=== PATIENT | male | born 1945 | race Caucasian/White ===

== ENCOUNTER 2016-05-24 07:00 | Day surgery (SDC) | payer OTHER, MEDICARE ==
[2016-05-24] MEDS ORDERED: D5 LR 1000 ML 1,000 ML IV ONE (07:21)
[2016-05-24] MEDS ORDERED: DIPRIVAN VIAL 20 ML ONE (08:32)
[2016-05-24] MEDS ORDERED: XYLOCAINE 2 % (PLAIN) ONE (08:32)
[2016-05-24 09:28] VITALS: BP 122/70
== END 2016-05-24 09:15 | disposition home or self-care (01) ==
LOC: SURG1 07:00
PROVIDERS: ATTEND Internal Medicine Gastroenterology
PROC: 0DBL8ZX Excision of Transverse Colon, Via Natural or Artificial Opening Endoscopic, Diagnostic (ICD-10-PCS; principal; 2016-05-24 08:15)
PROC: 0DJD8ZZ Inspection of Lower Intestinal Tract, Via Natural or Artificial Opening Endoscopic (ICD-10-PCS; principal; 2016-05-24 08:15)
DX: K63.5 Polyp of colon (principal); K57.30 Diverticulosis of large intestine without perforation or abscess without bleeding; K64.8 Other hemorrhoids; Z86.010 Personal history of colon polyps
CPT/HCPCS: 99100; A4217; J2001; J3490; J7120

== ENCOUNTER 2016-07-01 08:12 | Inpatient (IN) | payer OTHER, MEDICARE ==
[2016-07-01 08:17] VITALS: BMI 35.6
[2016-07-01 08:54] LABS: EOSINOPHILS # (AUTO) 0.1 x10^3/uL (0.0-0.2); EOSINOPHILS % (AUTO) 2.3 % (0.9-2.9); HEMATOCRIT 34.1 % (42.0-54.0); HEMOGLOBIN 11.3 g/dL (13.5-18.0); LYMPHOCYTES # (AUTO) 0.5 X10^3/uL (1.3-2.9); MEAN CORPUSCULAR HEMOGLOBIN 29.5 pg (27.0-34.0); MEAN CORPUSCULAR HGB CONC 33.1 g/dL (33.0-35.0); MEAN PLATELET VOLUME 8.9 fL (7.4-11.0); MONOCYTES # (AUTO) 0.3 x10^3/uL (0.3-0.8); MONOCYTES % (AUTO) 11.6 % (0.0-13.0); NEUTROPHILS % (AUTO) 67.1 % (42.0-75.0); PLATELET COUNT 132 X10^3/uL (150.0-450.0); RED BLOOD COUNT 3.83 X10^6/uL (4.7-6.0)
[2016-07-01 09:04] LABS: ALANINE AMINOTRANSFERASE 36 Units/L (12-78); ALBUMIN 3.3 g/dL (3.4-5.0); ALKALINE PHOSPHATASE 33 Units/L (46-116); ASPARTATE AMINO TRANSFERASE 36 Units/L (15-37); BLOOD UREA NITROGEN 13 mg/dL (7-18); CALCIUM 8.1 mg/dL (8.5-10.1); CARBON DIOXIDE 27.4 mmol/L (21-32); CHLORIDE 103 mmol/L (98-107); COR CA(FOR HYPOALB) 8.7 mg/dL (8.5-10.1); COR NA(FOR HYPERGLY) 141 mmol/L (136-145); CREATININE 1.13 mg/dL (0.70-1.30); GLUCOSE 133 mg/dL (65-99); SODIUM 140 mmol/L (136-145); TOTAL PROTEIN 6.4 g/dL (6.4-8.2); eGFR BLACK RACES > 60 (>60); eGFR NON BLACK RACES > 60 (>60)
--- NOTE | 2016-07-01 09:06 | RAD ---
HISTORY: 70-year-old male with cough, fever, runny nose, body aches and wheezing. Study: Single frontal view of the chest. Comparison: Chest radiograph May 06, 2015. Findings: Stable postsurgical changes status post CABG. The trachea is midline. The cardiac silhouette is stably enlarged. Prominent perihilar lung markin gs with peribronchial cuffing. There is hazy airspace opacity at the left lung base and to a lesser degree at the right lung base without focal consolidation, effusion or pneumothorax. Significant deg enerative changes of the shoulders is unchanged. Soft tissues unremarkable. The bony thorax is unre markable. IMPRESSION: 1. Findings concerning for multilobar pneumonia, correlate clinically. 2. Stable cardiomegaly. Reported By:
--- NOTE | 2016-07-01 09:11 | DR.URIAD ---
HPI - Time Seen Time seen: 08:27 - PCP Primary Care Physician: NANCY - HPI Comment HPI Comment: PATIENT PRESENTS TO ED WITH FEVER, COUGH,CONGESTION BODYACHES AND CHEST SORENESS. WORSE TODAY. HE WAS WHEEZING AT HOME. CHEST WAS TIGHT ALSO. HE TOOK MORNING MEDICATIONS TODAY. HE IS WEAK AND DRAIN OF ENERGY. COUGH PRODUCTIVE. - Complaint Chief Complaint Doctors Comments: FEVER, COUGH, CONGESTION AND BODYACHES TIMES ONE DAYS. Chief Complaint:: FEVER, BODY ACHES, WHEEZING, COUGHING, RUNNY NOSE - Reviewed Nurses Notes Reviewed: Yes - Source History Provided: Patient - Mode of Arrival Mode of Arrival: Ambulatory - Timing Onset of Chief Complaint: 06/30/16 - Context Recent Treated Infections: None History of Respiratory: None - Quality Quality of Cough: Productive, Yellow Rhinorrhea: Clear Shortness of Breath: Mild - Associated Signs and Symptoms Other Signs and Symptoms: Chills, Cough, Fever, Myalgias, Nasal Symptoms, Shortness of Breath, URI PMH - PMH Past Medical History: Yes Past Medical History: CHF, Diabetes, GERD, Hypertension, Hypothyroidism, [place] Past Surgical History: Yes Surgical History: Angioplasty/Stents, Cholecystectomy, Joint Replacement, Ortho Surgery - Family History History of Family Medical Conditions: Yes Family Medical History: Diabetes Mellitus, [place], Coronary Artery Disease, Hypertension - Social History Does patient currently use any type of tobacco product: No Have you used tobacco products in the last 12 months: No Type of Tobacco Use: None Does any household member use tobacco: No Alcohol Use: None Do you use any recreational Drugs:: No Lives With: Spouse Lives Where: Home - infectious screening In the last 2 months have you had wt loss of >10#?: NO Have you had fever, night sweats or hemotysis?: No Have you traveled outside the country in the last 6 months?: No Isolation: Standard ROS - Review of Systems Constitutional: Chills, Fever (AT HOME), Weakness, Fatigue, Loss of Appetite Eyes: No Symptoms Reported. negative: Eye Pain, Discharge ENTM: Nose Discharge, Nose Congestion. negative: Ear Pain, Throat Pain Respiratoy: Productive Cough, Short of Breath. negative: Wheezing, Hemoptysis Cardiovascular: No Symptoms Reported, Chest Pain, Edema (CHEST WALL SORENESS) Gastrointestinal/Abdominal: No Symptoms Reported. negative: Abdominal Pain, Diarrhea, Nausea, Vomiting Genitourinary: No Symptoms Reported. negative: Dysuria, Frequency, Hematuria Neurological: Headache, Weakness, Dizziness Musculoskeletal: Back Pain, Muscle Pain Integumentary: No Symptoms Reported Hematologic/Lymphatic: No Symptoms Reported Endocrine: No Symptoms Reported All Other Systems: Reviewed and Negative PE - Vital Signs Vitals: Temperature 98.2 F Pulse Rate 88 Respiratory Rate 18 Blood Pressure [Left Arm] 151/75 Blood Pressure [Right Arm] 142/88 Blood Pressure 133/69 O2 Sat by Pulse Oximetry 97 - General Limitations: No Limitations General Appearance: Alert - Head Head Exam: Atraumatic - Eyes Eye exam: Normal Appearance - ENT ENT Exam: Normal External Ear Exam External Ear Exam: Normal External Inspection TM/Canal Exam: Bilateral Normal Nose Exam: Normal Nose Exam Mouth Exam: Normal Inspection Throat Exam: Normal Inspection - Neck Neck Exam: Trachea Midline - Chest Chest Inspection: Symmetric Chest Wall Rise - Respiratory Respiratory Exam: Respiratory Distress. negative: Chest Wall Tenderness Respiratory Exam: Bilateral Rhonchi, Lower Rhonchi - Cardiovascular Cardiovascular Exam: Regular Rate, Normal Rhythm, Normal Heart Sounds - Abdominal Exam Abdominal Exam: Normal Bowel Sounds, Soft. negative: Tenderness - Extremeties Extremities Exam: Normal Inspection - Back Back Exam: Normal Inspection - Neurologic Neurological Exam: Alert, Oriented X3 - Psychiatric Psychiatric Exam: Anxious - Skin Skin Exam: Normal Color MDM - Additional Information Additional Information Obtained From: Family - Differential Diagnosis Differential Diagnosis: Influenza A, Pneumonia, URI ([place]) Course - Treatment Treatment: SEE ORDERS. - Consultation Consultation Comments: DISCUSS PATIENT WITH DR. SERRANO NURSE PRACTIONAL CARPENTER REFRIGERATOR WITH DR. HAMILTON. THEY WILL ADMIT PATIENT. - Education/Counseling Education/Counseling: Patient, Family, Education Educated On: Treatment, Diagnosis ROR - Labs Reviewed Laboratory Results Reviewed?: Yes Result Diagrams: 07/01/16 08:47 07/01/16 08:47 Laboratory: WBC 3.0 X10^3/uL (3.6-10.0) L 07/01/16 08:47 RBC 3.83 X10^6/uL (4.7-6.0) L 07/01/16 08:47 Hgb 11.3 g/dL (13.5-18.0) L 07/01/16 08:47 Hct 34.1 % (42.0-54.0) L 07/01/16 08:47 MCV 89.0 fL (80.0-100.0) 07/01/16 08:47 MCH 29.5 pg (27.0-34.0) 07/01/16 08:47 MCHC 33.1 g/dL (33.0-35.0) 07/01/16 08:47 RDW 15.0 % (11.6-16.5) 07/01/16 08:47 Plt Count 132 X10^3/uL (150.0-450.0) L 07/01/16 08:47 MPV 8.9 fL (7.4-11.0) 07/01/16 08:47 Neut % 67.1 % (42.0-75.0) 07/01/16 08:47 Lymph % 18.0 % (21.0-51.0) L 07/01/16 08:47 [place] % 11.6 % (0.0-13.0) 07/01/16 08:47 Eos % 2.3 % (0.9-2.9) 07/01/16 08:47 Baso % 1.0 % (0.2-1.0) 07/01/16 08:47 Neut # 2.0 x10^3/uL (2.2-4.8) L 07/01/16 08:47 Lymph # 0.5 X10^3/uL (1.3-2.9) L 07/01/16 08:47 [place] # 0.3 x10^3/uL (0.3-0.8) 07/01/16 08:47 Eos # 0.1 x10^3/uL (0.0-0.2) 07/01/16 08:47 Baso # 0.0 X10^3/uL (0.0-0.1) 07/01/16 08:47 Absolute Nucleated RBC 0.0 /100WBC 07/01/16 08:47 Sodium 140 mmol/L (136-145) 07/01/16 08:47 Corrected Sodium 141 mmol/L (136-145) 07/01/16 08:47 Potassium 3.4 mmol/L (3.5-5.1) L 07/01/16 08:47 Chloride 103 mmol/L (98-107) 07/01/16 08:47 Carbon Dioxide 27.4 mmol/L (21-32) 07/01/16 08:47 BUN 13 mg/dL (7-18) 07/01/16 08:47 Creatinine 1.13 mg/dL (0.70-1.30) 07/01/16 08:47 Est GFR (MDRD) Af Amer > 60 (>60) 07/01/16 08:47 Est GFR (MDRD) Non-Af > 60 (>60) 07/01/16 08:47 Glucose 133 mg/dL (65-99) H 07/01/16 08:47 Calcium 8.1 mg/dL (8.5-10.1) L 07/01/16 08:47 Corrected Calcium 8.7 mg/dL (8.5-10.1) 07/01/16 08:47 Total Bilirubin 0.70 mg/dL (0.2-1.0) 07/01/16 08:47 AST 36 Units/L (15-37) 07/01/16 08:47 ALT 36 Units/L (12-78) 07/01/16 08:47 Alkaline Phosphatase 33 Units/L (46-116) L 07/01/16 08:47 Total Protein 6.4 g/dL (6.4-8.2) 07/01/16 08:47 Albumin 3.3 g/dL (3.4-5.0) L 07/01/16 08:47 Globulin 3.1 g/dL (2.5-4.5) 07/01/16 08:47 Albumin/Globulin Ratio 1.1 Ratio (1.1-2.1) 07/01/16 08:47 Specimen Type Clean catch urine 07/01/16 11:05 Urine Color Yellow (YELLOW) 07/01/16 11:05 Urine Appearance Hazy (CLEAR) 07/01/16 11:05 Urine pH 6.0 (5.0 - 8.0) 07/01/16 11:05 Ur Specific [place] 1.010 (1.000-1.030) 07/01/16 11:05 Urine Protein Negative (NEGATIVE) 07/01/16 11:05 Urine Glucose (UA) Negative (NEGATIVE) 07/01/16 11:05 Urine Ketones Negative (NEGATIVE) 07/01/16 11:05 Urine Occult Blood Negative (NEGATIVE) 07/01/16 11:05 Urine Nitrite Negative (NEGATIVE) 07/01/16 11:05 Urine Bilirubin Negative (NEGATIVE) 07/01/16 11:05 Urine Urobilinogen Normal (NORMAL) 07/01/16 11:05 Ur Leukocyte Esterase 1+ (NEGATIVE) 07/01/16 11:05 Urine RBC 0-2 /HPF (NEGATIVE) 07/01/16 11:05 Urine WBC 0-2 /HPF (NEGATIVE) 07/01/16 11:05 Ur Squamous Epith Cells Negative /HPF (NEGATIVE) 07/01/16 11:05 Urine Bacteria Trace /HPF (NEGATIVE) 07/01/16 11:05 Ur Culture Indicated? No/not indicated 07/01/16 11:05 Influenza A (H1N1) PCR Not detected (NOT DETECT) 07/01/16 08:35 Influenza Type A (PCR) Positive (NEGATIVE) A 07/01/16 08:35 Influenza Type B (PCR) Negative (NEGATIVE) 07/01/16 08:35 - XRAY XRAY Interpreted by: Radiologist XRAY Findings: REPORT DISCUSS WITH PATIENT. - Diagnosis Discharge Problem: Influenza A Pneumonia Qualifiers: Pneumonia type: due to unspecified organism Laterality: bilateral Lung location : lower lobe of lung Qualified Code(s): J18.9 - Pneumonia, unspecified organism - Discharge Plan Disposition: ADMITTED INPATIENT Condition: Stable - Follow ups/Referrals - Instructions
[2016-07-01] MEDS ORDERED: LEVAQUIN PREMIX IV 750 MG 750 MG/150 ML BAG IV ONE ×2 (09:18→09:37)
[2016-07-01] MEDS ORDERED: SALINE 3% 15 ML NEB TX ONE (09:27)
[2016-07-01] MEDS ORDERED: SALINE 3% 15 ML NEB TX NEB ONE (09:33)
[2016-07-01] MEDS ORDERED: POTASSIUM CHLORIDE LIQ 20 MEQ UDC PO ONE (09:35)
[2016-07-01] MEDS ORDERED: POTASSIUM CHLORIDE LIQ 20 MEQ UDC ONE (09:43)
[2016-07-01] MEDS ORDERED: TUSSIONEX PENNKINETIC SUSP PO PRN (09:56)
[2016-07-01] MEDS ORDERED: NS 1000 ML 1,000 ML IV SCH (10:00)
[2016-07-01] MEDS ORDERED: NITROSTAT SL PRN (10:29)
[2016-07-01] MEDS ORDERED: TYLENOL #3 TAB (W/CODEINE) PO PRN (10:29)
[2016-07-01] MEDS ORDERED: COUMADIN TAB 7.5 MG PO SCH (11:00)
[2016-07-01 11:10] LABS: BILIRUBIN,URINE NEGATIVE (NEGATIVE); BLOOD/HEMOGLOBIN,URINE NEGATIVE (NEGATIVE); GLUCOSE, URINE NEGATIVE (NEGATIVE); KETONES,URINE NEGATIVE (NEGATIVE); LEUKOCYTE ESTERASE ,URINE 1+ (NEGATIVE); NITRITES,URINE NEGATIVE (NEGATIVE); PROTEIN,URINE NEGATIVE (NEGATIVE); UROBILINOGEN,URINE NORMAL (NORMAL)
[2016-07-01 11:17] LABS: APPEARANCE,URINE HAZY (CLEAR); COLOR,URINE YELLOW (YELLOW)
[2016-07-01 11:18] LABS: BACTERIA,URINE TRACE /HPF (NEGATIVE); RBC,URINE 0-2 /HPF (NEGATIVE); SQUAMOUS EPITHELIAL CELL,UR NEGATIVE /HPF (NEGATIVE)
[2016-07-01] MEDS: TAMIFLU PO SCH ×2 (11:50→22:18)
[2016-07-01] MEDS: DUONEB 0.5 MG/3 MG NEB SCH ×3 (12:52→20:37)
[2016-07-01] MEDS: VIBRAMYCIN 100 MG in D5W 250 ML IV 250 ML IV SCH ×2 (12:56→22:23)
[2016-07-01] MEDS: SYNTHROID 175 mcg TAB PO SCH (16:33)
[2016-07-01] MEDS ORDERED: HumuLIN R SUBCUT PRN (17:52)
[2016-07-01] MEDS: ROBITUSSIN DM PO SCH ×2 (19:00→22:22)
[2016-07-01] MEDS ORDERED: FOLIC ACID PO SCH (21:00)
[2016-07-01] MEDS ORDERED: [UNRECOGNIZED DRUG - OTHER] PO SCH (21:00)
[2016-07-01] MEDS ORDERED: [UNRECOGNIZED DRUG - OTHER] PO SCH (21:00)
[2016-07-01] MEDS ORDERED: [UNRECOGNIZED DRUG - OTHER] PO SCH (21:00)
[2016-07-01] MEDS ORDERED: [UNRECOGNIZED DRUG - OTHER] PO SCH (21:00)
[2016-07-01] MEDS ORDERED: [UNRECOGNIZED DRUG - OTHER] PO SCH (21:00)
[2016-07-01] MEDS: TRICOR TAB 160 MG PO SCH (22:17)
[2016-07-01] MEDS: PROCARDIA XL PO SCH (22:18)
[2016-07-01] MEDS: NORMODYNE TAB 200 MG PO SCH (22:19)
[2016-07-01] MEDS: NEURONTIN CAP 100 MG PO SCH (22:19)
[2016-07-01] MEDS: VITAMIN C PO SCH (22:19)
[2016-07-01] MEDS: PLAVIX PO SCH (22:20)
[2016-07-01] MEDS: OSCAL+D or CALTRATE+D PO SCH (22:20)
[2016-07-01] MEDS: PEPCID TAB 20 MG PO SCH (22:21)
[2016-07-01] MEDS: LIPITOR TAB 40 MG PO SCH (22:21)
[2016-07-01] MEDS: CARDURA PO SCH (22:21)
[2016-07-01] MEDS: SNACK - Diabetic Appropriate PO SCH (22:22)
[2016-07-01] MEDS: RANEXA PO SCH (22:22)
[2016-07-01] MEDS: [UNRECOGNIZED DRUG - OTHER] PO SCH (22:26)
[2016-07-02] MEDS ORDERED: NS 1/2 1000 ML IV 1,000 ML IV ONE ×2 (03:26→19:41)
[2016-07-02] MEDS: NS 1/2 1000 ML IV 1,000 ML IV SCH ×3 (03:27→19:45)
[2016-07-02 05:20] LABS: BASOPHILS % (AUTO) 1.1 % (0.2-1.0); EOSINOPHILS # (AUTO) 0.1 x10^3/uL (0.0-0.2); EOSINOPHILS % (AUTO) 2.7 % (0.9-2.9); HEMOGLOBIN 11.6 g/dL (13.5-18.0); LYMPHOCYTES # (AUTO) 1.1 X10^3/uL (1.3-2.9); LYMPHOCYTES % (AUTO) 39.6 % (21.0-51.0); MEAN CORPUSCULAR HEMOGLOBIN 29.9 pg (27.0-34.0); MEAN CORPUSCULAR HGB CONC 33.1 g/dL (33.0-35.0); MEAN CORPUSCULAR VOLUME 90.5 fL (80.0-100.0); MEAN PLATELET VOLUME 9.7 fL (7.4-11.0); MONOCYTES # (AUTO) 0.4 x10^3/uL (0.3-0.8); MONOCYTES % (AUTO) 16.7 % (0.0-13.0); NEUTROPHILS # (AUTO) 1.1 x10^3/uL (2.2-4.8); NEUTROPHILS % (AUTO) 39.9 % (42.0-75.0); PLATELET COUNT 133 X10^3/uL (150.0-450.0); RED BLOOD COUNT 3.87 X10^6/uL (4.7-6.0); RED CELL DISTRIBUTION WIDTH 15.4 % (11.6-16.5)
[2016-07-02 05:22] LABS: ALANINE AMINOTRANSFERASE 36 Units/L (12-78); ALBUMIN 3.1 g/dL (3.4-5.0); ALKALINE PHOSPHATASE 36 Units/L (46-116); ASPARTATE AMINO TRANSFERASE 37 Units/L (15-37); BLOOD UREA NITROGEN 15 mg/dL (7-18); CALCIUM 8.5 mg/dL (8.5-10.1); CARBON DIOXIDE 25.3 mmol/L (21-32); CHLORIDE 106 mmol/L (98-107); COR CA(FOR HYPOALB) 9.2 mg/dL (8.5-10.1); GLUCOSE 96 mg/dL (65-99); SODIUM 141 mmol/L (136-145); TOTAL PROTEIN 6.2 g/dL (6.4-8.2); WHITE BLOOD COUNT 2.8 X10^3/uL (3.6-10.0); eGFR BLACK RACES > 60 (>60); eGFR NON BLACK RACES > 60 (>60)
[2016-07-02 05:56] LABS: BASOPHILS % (MANUAL) 2 % (0-1); PLATELET MORPHOLOGY COMMENT NORMAL (NORMAL)
--- NOTE | 2016-07-02 07:25 | RAD ---
HISTORY: Follow up pneumonia Study: Chest two-view Comparison: July 01, 2016 Findings: The patient is status post median sternotomy. The heart is upper limits normal in size. No congestiv e heart failure is noted. The lungs are well inflated. No definite acute alveolar infiltrates are id entified on today's examination. No pleural effusions are present. The bony thorax is unremarkable. IMPRESSION: No definite infiltrates identified on today's examination Reported By:
[2016-07-02] MEDS: DUONEB 0.5 MG/3 MG NEB SCH ×4 (08:10→20:01)
[2016-07-02] MEDS: VIBRAMYCIN 100 MG in D5W 250 ML IV 250 ML IV SCH ×2 (08:53→21:46)
[2016-07-02] MEDS: ROBITUSSIN DM PO SCH ×4 (08:54→21:32)
[2016-07-02] MEDS: ASPIRIN PO SCH (08:56)
[2016-07-02] MEDS: PEPCID TAB 20 MG PO SCH ×2 (08:56→21:35)
[2016-07-02] MEDS: K-DUR TAB 20 MEQ PO SCH (08:56)
[2016-07-02] MEDS: FOLIC ACID TAB 1 MG PO SCH (08:57)
[2016-07-02] MEDS: CORDARONE TAB 200 MG PO SCH (08:59)
[2016-07-02] MEDS ORDERED: CYANOCOBALAMIN PO SCH (09:00)
[2016-07-02] MEDS ORDERED: [UNRECOGNIZED DRUG - OTHER] PO SCH (09:00)
[2016-07-02] MEDS: HYDROCHLOROTHIAZIDE 12.5 MG CAP PO SCH (09:00)
[2016-07-02] MEDS: PROCARDIA XL PO SCH ×2 (09:01→21:34)
[2016-07-02] MEDS: ZESTRIL TAB 5 MG PO SCH (09:02)
[2016-07-02] MEDS: RANEXA PO SCH ×2 (09:02→21:35)
[2016-07-02] MEDS: TAB-A-VITE PO SCH (09:02)
[2016-07-02] MEDS: VITAMIN B-12 PO SCH (09:02)
[2016-07-02] MEDS: TAMIFLU PO SCH ×3 (09:04→21:34)
[2016-07-02] MEDS: MONOKET or IMDUR PO SCH (09:51)
[2016-07-02] MEDS: CLARITIN PO SCH (12:41)
[2016-07-02] MEDS: SYNTHROID 175 mcg TAB PO SCH (17:19)
[2016-07-02] MEDS: CARDURA PO SCH (21:32)
[2016-07-02] MEDS: FLOMAX PO SCH (21:33)
[2016-07-02] MEDS: PLAVIX PO SCH (21:33)
[2016-07-02] MEDS: OSCAL+D or CALTRATE+D PO SCH (21:33)
[2016-07-02] MEDS: LIPITOR TAB 40 MG PO SCH (21:34)
[2016-07-02] MEDS: NEURONTIN CAP 100 MG PO SCH (21:35)
[2016-07-02] MEDS: [UNRECOGNIZED DRUG - OTHER] PO SCH (21:36)
[2016-07-02] MEDS: VITAMIN C PO SCH (21:40)
[2016-07-02] MEDS: NORMODYNE TAB 200 MG PO SCH (21:43)
[2016-07-02] MEDS: TRICOR TAB 160 MG PO SCH (21:44)
[2016-07-02] MEDS: SNACK - Diabetic Appropriate PO SCH (21:49)
[2016-07-03 05:16] LABS: BASOPHILS % (AUTO) 0.5 % (0.2-1.0); EOSINOPHILS # (AUTO) 0.1 x10^3/uL (0.0-0.2); EOSINOPHILS % (AUTO) 3.4 % (0.9-2.9); HEMATOCRIT 35.5 % (42.0-54.0); HEMOGLOBIN 11.5 g/dL (13.5-18.0); LYMPHOCYTES # (AUTO) 1.1 X10^3/uL (1.3-2.9); LYMPHOCYTES % (AUTO) 44.1 % (21.0-51.0); MEAN CORPUSCULAR HEMOGLOBIN 29.3 pg (27.0-34.0); MEAN CORPUSCULAR HGB CONC 32.3 g/dL (33.0-35.0); MEAN CORPUSCULAR VOLUME 90.8 fL (80.0-100.0); MEAN PLATELET VOLUME 9.7 fL (7.4-11.0); MONOCYTES # (AUTO) 0.3 x10^3/uL (0.3-0.8); NEUTROPHILS # (AUTO) 0.9 x10^3/uL (2.2-4.8); PLATELET COUNT 119 X10^3/uL (150.0-450.0); RED BLOOD COUNT 3.91 X10^6/uL (4.7-6.0); RED CELL DISTRIBUTION WIDTH 15.2 % (11.6-16.5); WHITE BLOOD COUNT 2.4 X10^3/uL (3.6-10.0)
[2016-07-03 05:25] LABS: ALANINE AMINOTRANSFERASE 44 Units/L (12-78); ALBUMIN 3.2 g/dL (3.4-5.0); ALKALINE PHOSPHATASE 40 Units/L (46-116); ASPARTATE AMINO TRANSFERASE 46 Units/L (15-37); BLOOD UREA NITROGEN 12 mg/dL (7-18); CALCIUM 8.8 mg/dL (8.5-10.1); CARBON DIOXIDE 28.8 mmol/L (21-32); CHLORIDE 108 mmol/L (98-107); COR CA(FOR HYPOALB) 9.4 mg/dL (8.5-10.1); CREATININE 1.04 mg/dL (0.70-1.30); GLUCOSE 97 mg/dL (65-99); SODIUM 145 mmol/L (136-145); TOTAL PROTEIN 6.3 g/dL (6.4-8.2); eGFR BLACK RACES > 60 (>60); eGFR NON BLACK RACES > 60 (>60)
[2016-07-03 05:58] LABS: BAND NEUTROPHILS % 2 % (0-10)
[2016-07-03 05:59] LABS: PLATELET MORPHOLOGY COMMENT NORMAL (NORMAL)
--- NOTE | 2016-07-03 06:52 | RAD ---
HISTORY: Multi lobar pneumonia Study: Single-view chest, done portably Comparison: July 02, 2016 Findings: There are again changes of thoracotomy with median sternotomy sutures. Trachea is midline. Heart siz e is upper normal. Lungs and pleural spaces are clear. Osseous structures are intact. IMPRESSION: Status post thoracotomy. Hypertensive configuration. No acute cardiopulmonary disease. Reported By:
[2016-07-03] MEDS: DUONEB 0.5 MG/3 MG NEB SCH ×4 (08:43→21:02)
[2016-07-03] MEDS: VITAMIN B-12 PO SCH (09:40)
[2016-07-03] MEDS: ROBITUSSIN DM PO SCH ×4 (09:40→20:56)
[2016-07-03] MEDS: ZESTRIL TAB 5 MG PO SCH (09:41)
[2016-07-03] MEDS: TAB-A-VITE PO SCH (09:43)
[2016-07-03] MEDS: PEPCID TAB 20 MG PO SCH ×2 (09:43→20:55)
[2016-07-03] MEDS: HYDROCHLOROTHIAZIDE 12.5 MG CAP PO SCH (09:43)
[2016-07-03] MEDS: CORDARONE TAB 200 MG PO SCH (09:43)
[2016-07-03] MEDS: TAMIFLU PO SCH ×2 (09:43→20:55)
[2016-07-03] MEDS: K-DUR TAB 20 MEQ PO SCH (09:44)
[2016-07-03] MEDS: ASPIRIN PO SCH (09:44)
[2016-07-03] MEDS: PROCARDIA XL PO SCH ×2 (09:44→20:54)
[2016-07-03] MEDS: MONOKET or IMDUR PO SCH (09:44)
[2016-07-03] MEDS: FOLIC ACID TAB 1 MG PO SCH (09:44)
[2016-07-03] MEDS: RANEXA PO SCH ×2 (09:45→20:58)
[2016-07-03] MEDS: CLARITIN PO SCH (09:45)
[2016-07-03] MEDS: VIBRAMYCIN 100 MG in D5W 250 ML IV 250 ML IV SCH ×2 (09:47→20:56)
[2016-07-03] MEDS: SYNTHROID 175 mcg TAB PO SCH ×2 (09:48→17:19)
--- NOTE | 2016-07-03 12:54 | DR.H&P ---
H&P - History & Physical for Day of: H&P Date: 07/01/16 - Chief Complaint Chief Complaint: FEVER, COUGH, CONGESTION, BODY ACHES - Allergies Allergies/Adverse Reactions: Allergies Allergy/AdvReac Type Severity Reaction Status Date / Time Penicillins Allergy Intermediate Verified 07/01/16 08:17 - History of Present Illness History of Present Illness: THIS IS A 70 YEAR OLD MALE, WHO IS A PATIENT OF OURS. HE PRESENTS TO THE EMERGENCY ROOM WITH COMPLAINTS OF FEVER, COUGH, CONGESTION, AND BODY ACHES. PATIENT ALSO REPORTS CHEST SORENESS. PATIENT REPORTS THAT HE HAS BEEN WHEEZING AT HOME AND HIS CHEST HAS BEEN TIGHT. PATIENT IS REPORTING WEAKNESS AND IS DRAINED OF ENERGY. PATIENT REPORTS A PRODUCTIVE COUGH AT HOME. PATIENT REPORTS SPUTUM IS YELLOW IN COLOR. ASSOCIATED SYMPTOMS INCLUDE CHILLS, COUGH, FEVER, MYALGIAS, NASAL SYMPTOMS, SHORTNESS OF BREATH, AND UPPER RESPIRATORY INFECTION. UPON ARRIVAL TO EMERGENCY ROOM, PATIENT IS NOTED WITH RESPIRATORY DISTRESS. UPON AUSCULTATION, LUNGS ARE NOTED WITH BILATERAL RHONCHI THROUGHOUT. CHEST XRAY REPORTS CONCERN FOR MULTILOBAR PNEUMONIA. PATIENT WILL BE ADMITTED FOR FURTHER TREATMENT AND EVALUATION OF PNEUMONIA. PATIENT WILL BE ADMITTED ON PNEUMONIA PROTOCOL WITH IV ANTIBIOTICS AND AGGRESSIVE NEB TREATMENTS. - Past Medical History Past Medical History: Arthritis, CHF, Coronary Artery Disease, Diabetes, Dyslipidemia, GERD, Hypertension, Hypothyroidism, PR, Sleep Apnea Additional Medical History: Cataracts, Bacterial Meningitis 2010, Bronchitis, Pneumonia, Osteoporosis, Back Pain, Thromboembolism, Diverticulosis, Migraine - Past Surgical History Surgical History: Angioplasty/Stents, CABG/Valve Surgery, Cholecystectomy, Joint Replacement, Ortho Surgery, Other Additional Surgical History: Cardiac Cath 12/2015, Left TKA, Arthroscopic Left KNee, Right and Left Rotator Cuff Repair, Amputation Right Pointer Finger (Meat Saw), Inguinal Hernia Repair, Umbilical Hernia Repair, Breast Biopsy (Benign) - Family History Family Medical History: Diabetes Mellitus, PR, Coronary Artery Disease, Hypertension - Social History Does patient currently use any type of tobacco product: No Have you used tobacco products in the last 12 months: No Type of Tobacco Use: Cigarettes How many years tobacco product used: 20 Does any household member use tobacco: No Alcohol Use: None Drug Use: Prescription Drugs - Medications Home Medications: Acetaminophen W/ Codeine [Tylenol/Codeine #3 300-30 mg] 1 tab PO Q4-6H PRN 07/01 [History Confirmed 07/01/16] Amiodarone HCl [Cordarone Tab 200 mg] 200 mg PO DAILY 07/01/16 [History Confirmed 07/01/16] Aspirin [ASPIRIN 325 MG *] 325 mg PO DAILY 07/01/16 [History Confirmed 07/01/16] Atorvastatin Calcium [Lipitor Tab 40 mg] 40 mg PO HS 07/01/16 [History Confirmed 07/01/16] Clopidogrel Bisulfate [Plavix] 75 mg PO DAILY 07/01/16 [History Confirmed ] Doxazosin Mesylate [Doxazosin] 4 mg PO HS 07/01/16 [History Confirmed 07/01/16] Famotidine [Famotidine 20 mg] 20 mg PO BID 07/01/16 [History Confirmed 07/01/16] Fenofibrate [Fenofibrate 160 mg] 160 mg PO HS 07/01/16 [History Confirmed ] Gabapentin [Neurontin Cap 100 mg] 100 mg PO HS 07/01/16 [History Confirmed 07/01] Hydrochlorothiazide [Hydrochlorothiazide 12.5 mg Cap] 12.5 mg PO QAM 07/01/16 [ History Confirmed 07/01/16] Isosorbide Mononitrate 20 mg PO DAILY 07/01/16 [History Confirmed 07/01/16] Labetalol HCl [Normodyne Tab 200 mg] 200 mg PO DAILY 07/01/16 [History Confirmed 07/01/16] Levothyroxine Sodium 175 mcg PO DAILY 07/01/16 [History Confirmed 07/01/16] Lisinopril [ZESTRIL *] 5 mg PO DAILY 07/01/16 [History Confirmed 07/01/16] Loratadine [Allergy] 10 mg PO DAILY 07/01/16 [History Confirmed 07/01/16] Nifedipine [Nifedipine ER] 30 mg PO BID 07/01/16 [History Confirmed 07/01/16] Nitroglycerin Sublingual [NITROSTAT SUBLING TAB 0.4 MG *] 0.4 mg SL PRN PRN [History Confirmed 07/01/16] Potassium Chloride [Potassium Chloride ER] 20 meq PO DAILY 07/01/16 [History Confirmed 07/01/16] Ranolazine [Ranexa] 500 mg PO BID 07/01/16 [History Confirmed 07/01/16] Tamsulosin HCl [Flomax] 0.4 mg PO HS 07/01/16 [History Confirmed 07/01/16] Warfarin Sodium [Coumadin Tab 5 mg] 5 mg PO DAILY 07/01/16 [History Confirmed ] - Review of Systems Constitutional: Fever, Weakness, Malaise Eyes: No Symptoms Reported. denies: Pain, Vision Change, Conjunctivae Inflammation, Eyelid Inflammation, Redness ENT: Nose Discharge, Nose Congestion. denies: Ear Pain, Ear Discharge, Nose Pain, Mouth Pain, Mouth Swelling, Throat Pain, Throat Swelling Respiratory: Cough, Shortness of Breath, SOB with Excertion, Sputum, Wheezing. denies: Hemoptysis, Pleuritic Pain Cardiovascular: Chest Pain. denies: Palpitations, Orthopnea, Paroxysmal Noc. Dyspnea, Edema, Light Headedness Gastrointestinal: No Symptoms Reported. denies: Nausea, Vomiting, Abdominal Pain, Diarrhea, Constipation, Melena, Hematochezia Genitourinary: No Symptoms Reported. denies: Dysuria, Frequency, Incontinence, Hematuria, Retention Musculoskeletal: No Symptoms Reported. denies: Shoulder Pain, Arm Pain, Back Pain, Hand Pain, Leg Pain, Foot Pain, Neck Pain Skin: No Symptoms Reported. denies: Rash, Lesions, Jaundice, Bruising, Wound, Ecchymosis Neurological: No Symptoms Reported. denies: Weakness, Numbness, Incoordination , Change in Speech, Confusion, Seizures - Physical Exam Vital Signs: Temperature 97.9 F Pulse Rate [Left Brachial] 59 Pulse Rate 88 Respiratory Rate 20 Blood Pressure [Left Arm] 135/71 O2 Sat by Pulse Oximetry 98 Oriented: Normal, Time, Person, Place Eyes: Normal. negative: Blurred Vision, Diplopia, Discharge, Pain, Redness, Photophobia Ear: Normal. negative: Swelling, Ecchymosis, Hemotypanum, Abrasion, Laceration Nose: Normal. negative: Injected, Discharge, Blood Throat: Red, Dry. negative: Tonsillar Hypertrophy, Exudate Respiratory: Rhonchi Throughout Cardiovascular: Normal. negative: Murmur, Edema : Normal. negative: Dysuria, Hematuria, Frequency, Discharge, Testicular Pain Auscultation: Bowel Sounds: Decreased. negative: Bruit Palpation: Normal. negative: Spleen Enlarged, Liver Enlarged, Mass Pulsatile Tenderness: Normal. negative: Rebound, Guarding, Rigidity Skin: Normal. negative: Diaphoresis, Wound, Bruising, Ecchymosis Musculoskeletal: Instability Psychiatric: Normal Mood Description: Calm, Appropriate Affect: Normal Speech Pattern: Clear, Appropriate - Assessment/Plan (1) Pneumonia Qualifiers: Pneumonia type: due to unspecified organism Aspiration pneumonia type: A Laterality: bilateral Lung location: lower lobe of lung Qualified Code(s): J18.9 - Pneumonia, unspecified organism Status: Acute Plan: ADMIT PATIENT, START PNEUMONIA PROTOCOL WITH IV ANTIBIOTICS, DUONEBS, SUPPLEMENTAL OXYGEN, ROBITUSSION, MONITOR LABS AND CHEST XRAY. (2) Respiratory distress Status: Acute Plan: ABOVE. (3) Influenza A Status: Acute Plan: START TAMIFLU, MONITOR. (4) CAD (coronary artery disease) Qualifiers: Coronary Disease-Associated Artery/Lesion type: [place] artery [place] vs. transplanted heart: [place] heart Associated angina: without angina Qualified Code(s): I25.10 - Atherosclerotic heart disease of [place] coronary artery without angina pectoris Status: Chronic (5) Diabetes Qualifiers: Diabetes mellitus type: type 2 Diabetes mellitus complication status: without complication Diabetes mellitus complication detail: D Diabetic retinopathy severity: D Proliferative retinopathy type: P Diabetes mellitus macular edema: D Diabetes mellitus rat exterminator insulin use: without assisted use Laterality: L Chronic kidney disease stage: C Qualified Code(s): E11.9 - Type 2 diabetes mellitus without complications Status: Chronic (6) GERD (gastroesophageal reflux disease) Qualifiers: Esophagitis presence: esophagitis presence not specified Qualified Code(s) : K21.9 - Gastro-esophageal reflux disease without esophagitis Status: Chronic (7) History of CHF (congestive heart failure) Status: Chronic (8) Hypertension Qualifiers: Hypertension type: essential hypertension Qualified Code(s): I10 - Essential (primary) hypertension Status: Chronic (9) Hyperlipidemia Qualifiers: Hyperlipidemia type: mixed hyperlipidemia Qualified Code(s): E78.2 - Mixed hyperlipidemia Status: Chronic (10) History of PR (myocardial infarction) Status: Chronic (11) History of angioplasty Status: Chronic (12) History of diverticulosis Status: Chronic (13) History of meningitis Status: Chronic (14) History of migraine Status: Chronic (15) History of thromboembolism Status: Chronic (16) Hx of CABG Status: Chronic (17) Hypothyroidism Qualifiers: Hypothyroidism type: H Status: Chronic (18) S/P cholecystectomy Status: Chronic
--- NOTE | 2016-07-03 13:47 | PCM.PROG ---
Progress Note - Progress Note for Day of Date: 07/02/16 - Subjective Subjective: PATIENT CONTINUES WITH COUGH AND CHEST CONGESTION THIS MORNING. HE IS NOTED A COARSE, NON-PRODUCTIVE COUGH. PATIENT CONTINUES WITH SHORTNESS OF BREATH AT REST AND ON EXERTION. ON AUSCULTATION, LUNGS ARE NOTED WITH COARSE RH[place]I AND WHEEZING THROUGHOUT. VITAL SIGNS STABLE, AFEBRILE. CBC WNL EXCEPT : WBC 2.8, H/H 11.6/35.0, PLT COUNT 133. CMP WNL EXCEPT: TOT PROTEIN 6.2, ALBUMIN 3.1. INR 2.03. BLOOD AND SPUTUM CULTURES PENDING. CHEST XRAY REPORTS NO DEFINITE INFILTRATES. WE WILL CONTINUE WITH CURRENT TREATMENT AND FOLLOW UP IN AM WITH LABS. - Past Medical Family Social History Past Med/Fam/Surg Hx: No changes since H&P Allergies: Allergies Penicillins Allergy (Intermediate, Verified 07/01/16 08:17) - Review of Systems ROS: No change since H&P - Vital Signs and I&O's Vital Signs: Temperature 97.9 F Pulse Rate [Left Brachial] 59 Pulse Rate 88 Respiratory Rate 20 Blood Pressure [Left Arm] 135/71 O2 Sat by Pulse Oximetry 98 Intake and Output: Intake & Output 07/01/16 07/02/16 07/03/16 07/04/16 11:59 11:59 11:59 11:59 Intake Total 2300 2019 Balance 2300 2019 - Physical Exam Oriented: Normal, Time, Person, Place Eyes: Normal. negative: Blurred Vision, Diplopia, Discharge, Pain, Redness, Photophobia Ear: Normal. negative: Swelling, Ecchymosis, Hemotypanum, Abrasion, Laceration Nose: Normal. negative: Injected, Discharge, Blood Throat: Red, Dry. negative: Tonsillar Hypertrophy, Exudate Respiratory: Generalized, Wheezes, Rhonchi Cardiovascular: Normal. negative: Murmur, Edema : Normal. negative: Dysuria, Hematuria, Frequency, Discharge, Testicular Pain Auscultation: Bowel Sounds: Decreased. negative: Bruit Palpation: Normal. negative: Spleen Enlarged, Liver Enlarged, Mass Pulsatile Tenderness: Normal. negative: Rebound, Guarding, Rigidity Skin: Normal. negative: Diaphoresis, Wound, Bruising, Ecchymosis Musculoskeletal: Instability Psychiatric: Normal Mood Description: Calm, Appropriate Affect: Normal Speech Pattern: Clear, Appropriate - Laboratory and Diagnostics Result Diagrams: 07/03/16 03:40 07/03/16 03:40 Labs: 07/01/16 10:21 Sputum - Expectorated Sputum Sputum Culture - Final 07/01/16 10:21 Sputum - Expectorated Sputum - Final Laboratory WBC 2.4 X10^3/uL (3.6-10.0) L 07/03/16 03:40 RBC 3.91 X10^6/uL (4.7-6.0) L 07/03/16 03:40 Hgb 11.5 g/dL (13.5-18.0) L 07/03/16 03:40 Hct 35.5 % (42.0-54.0) L 07/03/16 03:40 MCV 90.8 fL (80.0-100.0) 07/03/16 03:40 MCH 29.3 pg (27.0-34.0) 07/03/16 03:40 MCHC 32.3 g/dL (33.0-35.0) L 07/03/16 03:40 RDW 15.2 % (11.6-16.5) 07/03/16 03:40 Plt Count 119 X10^3/uL (150.0-450.0) L 07/03/16 03:40 Plt Count Comment Decreased (ADEQUATE) 07/03/16 03:40 MPV 9.7 fL (7.4-11.0) 07/03/16 03:40 Neut % 39.0 % (42.0-75.0) L 07/03/16 03:40 Lymph % 44.1 % (21.0-51.0) 07/03/16 03:40 [place] % 13.0 % (0.0-13.0) 07/03/16 03:40 Eos % 3.4 % (0.9-2.9) H 07/03/16 03:40 Baso % 0.5 % (0.2-1.0) 07/03/16 03:40 Neut # 0.9 x10^3/uL (2.2-4.8) L 07/03/16 03:40 Lymph # 1.1 X10^3/uL (1.3-2.9) L 07/03/16 03:40 [place] # 0.3 x10^3/uL (0.3-0.8) 07/03/16 03:40 Eos # 0.1 x10^3/uL (0.0-0.2) 07/03/16 03:40 Baso # 0.0 X10^3/uL (0.0-0.1) 07/03/16 03:40 Absolute Nucleated RBC 0.2 /100WBC 07/03/16 03:40 Total Counted 100 07/03/16 03:40 Neutrophils % (Manual) 40 % (39-76) 07/03/16 03:40 Band Neutrophils % 2 % (0-10) 07/03/16 03:40 Lymphocytes % (Manual) 47 % (13-43) H 07/03/16 03:40 Monocytes % (Manual) 9 % (4-9) 07/03/16 03:40 Eosinophils % (Manual) 2 % (0-6) 07/03/16 03:40 Basophils % (Manual) 2 % (0-1) H 07/02/16 03:50 Plt Morphology Comment Normal (NORMAL) 07/03/16 03:40 RBC Morphology Normal (NORMAL) 07/03/16 03:40 INR Target Range - 07/03/16 03:40 INR 1.77 (0.8-1.3) H 07/03/16 03:40 Sodium 145 mmol/L (136-145) 07/03/16 03:40 Corrected Sodium TNP 07/03/16 03:40 Potassium 3.9 mmol/L (3.5-5.1) 07/03/16 03:40 Chloride 108 mmol/L (98-107) H 07/03/16 03:40 Carbon Dioxide 28.8 mmol/L (21-32) 07/03/16 03:40 BUN 12 mg/dL (7-18) 07/03/16 03:40 Creatinine 1.04 mg/dL (0.70-1.30) 07/03/16 03:40 Est GFR (MDRD) Af Amer > 60 (>60) 07/03/16 03:40 Est GFR (MDRD) Non-Af > 60 (>60) 07/03/16 03:40 Glucose 97 mg/dL (65-99) 07/03/16 03:40 Lactic Acid 2.8 mmol/L (0.4-2.0) H 07/01/16 10:40 Calcium 8.8 mg/dL (8.5-10.1) 07/03/16 03:40 Corrected Calcium 9.4 mg/dL (8.5-10.1) 07/03/16 03:40 Total Bilirubin 0.40 mg/dL (0.2-1.0) 07/03/16 03:40 AST 46 Units/L (15-37) H 07/03/16 03:40 ALT 44 Units/L (12-78) 07/03/16 03:40 Alkaline Phosphatase 40 Units/L (46-116) L 07/03/16 03:40 Total Protein 6.3 g/dL (6.4-8.2) L 07/03/16 03:40 Albumin 3.2 g/dL (3.4-5.0) L 07/03/16 03:40 Globulin 3.1 g/dL (2.5-4.5) 07/03/16 03:40 Albumin/Globulin Ratio 1.0 Ratio (1.1-2.1) L 07/03/16 03:40 Specimen Type Clean catch urine 07/01/16 11:05 Urine Color Yellow (YELLOW) 07/01/16 11:05 Urine Appearance Hazy (CLEAR) 07/01/16 11:05 Urine pH 6.0 (5.0 - 8.0) 07/01/16 11:05 Ur Specific [place] 1.010 (1.000-1.030) 07/01/16 11:05 Urine Protein Negative (NEGATIVE) 07/01/16 11:05 Urine Glucose (UA) Negative (NEGATIVE) 07/01/16 11:05 Urine Ketones Negative (NEGATIVE) 07/01/16 11:05 Urine Occult Blood Negative (NEGATIVE) 07/01/16 11:05 Urine Nitrite Negative (NEGATIVE) 07/01/16 11:05 Urine Bilirubin Negative (NEGATIVE) 07/01/16 11:05 Urine Urobilinogen Normal (NORMAL) 07/01/16 11:05 Ur Leukocyte Esterase 1+ (NEGATIVE) 07/01/16 11:05 Urine RBC 0-2 /HPF (NEGATIVE) 07/01/16 11:05 Urine WBC 0-2 /HPF (NEGATIVE) 07/01/16 11:05 Ur Squamous Epith Cells Negative /HPF (NEGATIVE) 07/01/16 11:05 Urine Bacteria Trace /HPF (NEGATIVE) 07/01/16 11:05 Ur Culture Indicated? No/not indicated 07/01/16 11:05 Influenza A (H1N1) PCR Not detected (NOT DETECT) 07/01/16 08:35 Influenza Type A (PCR) Positive (NEGATIVE) A 07/01/16 08:35 Influenza Type B (PCR) Negative (NEGATIVE) 07/01/16 08:35 - Plan (1) Pneumonia Status: Acute Qualifiers: Pneumonia type: due to unspecified organism Aspiration pneumonia type: A Laterality: bilateral Lung location: lower lobe of lung Qualified Code(s): J18.9 - Pneumonia, unspecified organism Plan: CONTINUE PNEUMONIA PROTOCOL WITH IV ANTIBIOTICS, DUONEBS, SUPPLEMENTAL OXYGEN, ROBITUSSION, MONITOR LABS AND CHEST XRAY. (2) Respiratory distress Status: Acute Plan: ABOVE. (3) Influenza A Status: Acute Plan: CONTINUE TAMIFLU, MONITOR. (4) CAD (coronary artery disease) Status: Chronic Qualifiers: Coronary Disease-Associated Artery/Lesion type: [place] artery [place] vs. transplanted heart: [place] heart Associated angina: without angina Qualified Code(s): I25.10 - Atherosclerotic heart disease of [place] coronary artery without angina pectoris (5) Diabetes Status: Chronic Qualifiers: Diabetes mellitus type: type 2 Diabetes mellitus complication status: without complication Diabetes mellitus complication detail: D Diabetic retinopathy severity: D Proliferative retinopathy type: P Diabetes mellitus macular edema: D Diabetes mellitus exterminator helper insulin use: without exterminator helper use Laterality: L Chronic kidney disease stage: C Qualified Code(s): E11.9 - Type 2 diabetes mellitus without complications (6) GERD (gastroesophageal reflux disease) Status: Chronic Qualifiers: Esophagitis presence: esophagitis presence not specified Qualified Code(s) : K21.9 - Gastro-esophageal reflux disease without esophagitis (7) History of CHF (congestive heart failure) Status: Chronic (8) Hypertension Status: Chronic Qualifiers: Hypertension type: essential hypertension Qualified Code(s): I10 - Essential (primary) hypertension (9) Hyperlipidemia Status: Chronic Qualifiers: Hyperlipidemia type: mixed hyperlipidemia Qualified Code(s): E78.2 - Mixed hyperlipidemia (10) History of [place] (myocardial infarction) Status: Chronic (11) History of angioplasty Status: Chronic (12) History of diverticulosis Status: Chronic (13) History of meningitis Status: Chronic (14) History of migraine Status: Chronic (15) History of thromboembolism Status: Chronic (16) Hx of CABG Status: Chronic (17) Hypothyroidism Status: Chronic Qualifiers: Hypothyroidism type: H (18) S/P cholecystectomy Status: Chronic
--- NOTE | 2016-07-03 13:59 | PCM.PROG ---
Progress Note - Progress Note for Day of Date: 07/03/16 - Subjective Subjective: PATIENT IS SITTING UP IN CHAIR UPON ROUNDS. PATIENT IS WITH PLEASANT AFFECT. PATIENT REPORTS HE IS FEELING A LITTLE BETTER THIS MORNING. HE CONTINUES WITH COUGH AND CHEST CONGESTION. HE CONTINUES WITH A COARSE, NON- PRODUCTIVE COUGH. PATIENT ALSO CONTINUES WITH SHORTNESS OF BREATH AT REST AND ON EXERTION. ON AUSCULTATION, LUNGS NOTED WITH SCATTERED WHEEZING THROUGHOUT. VITAL SIGNS STABLE, AFEBRILE. CBC WNL EXCEPT: WBC 2.4, H/H 11.5/35.5, PLT COUNT 119. CMP WNL EXCEPT: TOT PROTEIN 6.3, ALBUMIN 3.2. INR 1.77. BLOOD CULTURES PENDING. SPUTUM CULTURES ARE NEGATIVE. CHEST XRAY REPORTS NO ACUTE CARDIOPULMONARY DISEASE. WE WILL CONTINUE WITH CURRENT TREATMENT AND FOLLOW UP IN AM WITH LABS. - Past Medical Family Social History Past Med/Fam/Surg Hx: No changes since H&P Allergies: Allergies Penicillins Allergy (Intermediate, Verified 07/01/16 08:17) - Review of Systems ROS: No change since H&P - Vital Signs and I&O's Vital Signs: Temperature 97.9 F Pulse Rate [Left Brachial] 59 Pulse Rate 88 Respiratory Rate 20 Blood Pressure [Left Arm] 135/71 O2 Sat by Pulse Oximetry 98 Intake and Output: Intake & Output 07/01/16 07/02/16 07/03/16 07/04/16 11:59 11:59 11:59 11:59 Intake Total 2300 2019 Balance 2300 2019 - Physical Exam Oriented: Normal, Time, Person, Place Eyes: Normal. negative: Blurred Vision, Diplopia, Discharge, Pain, Redness, Photophobia Ear: Normal. negative: Swelling, Ecchymosis, Hemotypanum, Abrasion, Laceration Nose: Normal. negative: Injected, Discharge, Blood Throat: Red, Dry. negative: Tonsillar Hypertrophy, Exudate Respiratory: Generalized, Wheezes Cardiovascular: Normal. negative: Murmur, Edema : Normal. negative: Dysuria, Hematuria, Frequency, Discharge, Testicular Pain Auscultation: Bowel Sounds: Normal. negative: Bruit Palpation: Normal. negative: Spleen Enlarged, Liver Enlarged, Mass Pulsatile Tenderness: Normal. negative: Rebound, Guarding, Rigidity Skin: Normal. negative: Diaphoresis, Wound, Bruising, Ecchymosis Musculoskeletal: Instability Psychiatric: Normal Mood Description: Calm, Appropriate Affect: Normal Speech Pattern: Clear, Appropriate - Laboratory and Diagnostics Result Diagrams: 07/03/16 03:40 07/03/16 03:40 Labs: 07/01/16 10:21 Sputum - Expectorated Sputum Sputum Culture - Final 07/01/16 10:21 Sputum - Expectorated Sputum - Final Laboratory WBC 2.4 X10^3/uL (3.6-10.0) L 07/03/16 03:40 RBC 3.91 X10^6/uL (4.7-6.0) L 07/03/16 03:40 Hgb 11.5 g/dL (13.5-18.0) L 07/03/16 03:40 Hct 35.5 % (42.0-54.0) L 07/03/16 03:40 MCV 90.8 fL (80.0-100.0) 07/03/16 03:40 MCH 29.3 pg (27.0-34.0) 07/03/16 03:40 MCHC 32.3 g/dL (33.0-35.0) L 07/03/16 03:40 RDW 15.2 % (11.6-16.5) 07/03/16 03:40 Plt Count 119 X10^3/uL (150.0-450.0) L 07/03/16 03:40 Plt Count Comment Decreased (ADEQUATE) 07/03/16 03:40 MPV 9.7 fL (7.4-11.0) 07/03/16 03:40 Neut % 39.0 % (42.0-75.0) L 07/03/16 03:40 Lymph % 44.1 % (21.0-51.0) 07/03/16 03:40 [place] % 13.0 % (0.0-13.0) 07/03/16 03:40 Eos % 3.4 % (0.9-2.9) H 07/03/16 03:40 Baso % 0.5 % (0.2-1.0) 07/03/16 03:40 Neut # 0.9 x10^3/uL (2.2-4.8) L 07/03/16 03:40 Lymph # 1.1 X10^3/uL (1.3-2.9) L 07/03/16 03:40 [place] # 0.3 x10^3/uL (0.3-0.8) 07/03/16 03:40 Eos # 0.1 x10^3/uL (0.0-0.2) 07/03/16 03:40 Baso # 0.0 X10^3/uL (0.0-0.1) 07/03/16 03:40 Absolute Nucleated RBC 0.2 /100WBC 07/03/16 03:40 Total Counted 100 07/03/16 03:40 Neutrophils % (Manual) 40 % (39-76) 07/03/16 03:40 Band Neutrophils % 2 % (0-10) 07/03/16 03:40 Lymphocytes % (Manual) 47 % (13-43) H 07/03/16 03:40 Monocytes % (Manual) 9 % (4-9) 07/03/16 03:40 Eosinophils % (Manual) 2 % (0-6) 07/03/16 03:40 Basophils % (Manual) 2 % (0-1) H 07/02/16 03:50 Plt Morphology Comment Normal (NORMAL) 07/03/16 03:40 RBC Morphology Normal (NORMAL) 07/03/16 03:40 INR Target Range - 07/03/16 03:40 INR 1.77 (0.8-1.3) H 07/03/16 03:40 Sodium 145 mmol/L (136-145) 07/03/16 03:40 Corrected Sodium TNP 07/03/16 03:40 Potassium 3.9 mmol/L (3.5-5.1) 07/03/16 03:40 Chloride 108 mmol/L (98-107) H 07/03/16 03:40 Carbon Dioxide 28.8 mmol/L (21-32) 07/03/16 03:40 BUN 12 mg/dL (7-18) 07/03/16 03:40 Creatinine 1.04 mg/dL (0.70-1.30) 07/03/16 03:40 Est GFR (MDRD) Af Amer > 60 (>60) 07/03/16 03:40 Est GFR (MDRD) Non-Af > 60 (>60) 07/03/16 03:40 Glucose 97 mg/dL (65-99) 07/03/16 03:40 Lactic Acid 2.8 mmol/L (0.4-2.0) H 07/01/16 10:40 Calcium 8.8 mg/dL (8.5-10.1) 07/03/16 03:40 Corrected Calcium 9.4 mg/dL (8.5-10.1) 07/03/16 03:40 Total Bilirubin 0.40 mg/dL (0.2-1.0) 07/03/16 03:40 AST 46 Units/L (15-37) H 07/03/16 03:40 ALT 44 Units/L (12-78) 07/03/16 03:40 Alkaline Phosphatase 40 Units/L (46-116) L 07/03/16 03:40 Total Protein 6.3 g/dL (6.4-8.2) L 07/03/16 03:40 Albumin 3.2 g/dL (3.4-5.0) L 07/03/16 03:40 Globulin 3.1 g/dL (2.5-4.5) 07/03/16 03:40 Albumin/Globulin Ratio 1.0 Ratio (1.1-2.1) L 07/03/16 03:40 Specimen Type Clean catch urine 07/01/16 11:05 Urine Color Yellow (YELLOW) 07/01/16 11:05 Urine Appearance Hazy (CLEAR) 07/01/16 11:05 Urine pH 6.0 (5.0 - 8.0) 07/01/16 11:05 Ur Specific [place] 1.010 (1.000-1.030) 07/01/16 11:05 Urine Protein Negative (NEGATIVE) 07/01/16 11:05 Urine Glucose (UA) Negative (NEGATIVE) 07/01/16 11:05 Urine Ketones Negative (NEGATIVE) 07/01/16 11:05 Urine Occult Blood Negative (NEGATIVE) 07/01/16 11:05 Urine Nitrite Negative (NEGATIVE) 07/01/16 11:05 Urine Bilirubin Negative (NEGATIVE) 07/01/16 11:05 Urine Urobilinogen Normal (NORMAL) 07/01/16 11:05 Ur Leukocyte Esterase 1+ (NEGATIVE) 07/01/16 11:05 Urine RBC 0-2 /HPF (NEGATIVE) 07/01/16 11:05 Urine WBC 0-2 /HPF (NEGATIVE) 07/01/16 11:05 Ur Squamous Epith Cells Negative /HPF (NEGATIVE) 07/01/16 11:05 Urine Bacteria Trace /HPF (NEGATIVE) 07/01/16 11:05 Ur Culture Indicated? No/not indicated 07/01/16 11:05 Influenza A (H1N1) PCR Not detected (NOT DETECT) 07/01/16 08:35 Influenza Type A (PCR) Positive (NEGATIVE) A 07/01/16 08:35 Influenza Type B (PCR) Negative (NEGATIVE) 07/01/16 08:35 - Plan (1) Pneumonia Status: Acute Qualifiers: Pneumonia type: due to unspecified organism Aspiration pneumonia type: A Laterality: bilateral Lung location: lower lobe of lung Qualified Code(s): J18.9 - Pneumonia, unspecified organism Plan: CONTINUE PNEUMONIA PROTOCOL WITH IV ANTIBIOTICS, DUONEBS, SUPPLEMENTAL OXYGEN, ROBITUSSION, MONITOR LABS AND CHEST XRAY. (2) Respiratory distress Status: Acute Plan: ABOVE. (3) Influenza A Status: Acute Plan: CONTINUE TAMIFLU, MONITOR. (4) CAD (coronary artery disease) Status: Chronic Qualifiers: Coronary Disease-Associated Artery/Lesion type: [place] artery [place] vs. transplanted heart: [place] heart Associated angina: without angina Qualified Code(s): I25.10 - Atherosclerotic heart disease of [place] coronary artery without angina pectoris (5) Diabetes Status: Chronic Qualifiers: Diabetes mellitus type: type 2 Diabetes mellitus complication status: without complication Diabetes mellitus complication detail: D Diabetic retinopathy severity: D Proliferative retinopathy type: P Diabetes mellitus macular edema: D Diabetes mellitus half-way insulin use: without parts counterman use Laterality: L Chronic kidney disease stage: C Qualified Code(s): E11.9 - Type 2 diabetes mellitus without complications (6) GERD (gastroesophageal reflux disease) Status: Chronic Qualifiers: Esophagitis presence: esophagitis presence not specified Qualified Code(s) : K21.9 - Gastro-esophageal reflux disease without esophagitis (7) History of CHF (congestive heart failure) Status: Chronic (8) Hypertension Status: Chronic Qualifiers: Hypertension type: essential hypertension Qualified Code(s): I10 - Essential (primary) hypertension (9) Hyperlipidemia Status: Chronic Qualifiers: Hyperlipidemia type: mixed hyperlipidemia Qualified Code(s): E78.2 - Mixed hyperlipidemia (10) History of [place] (myocardial infarction) Status: Chronic (11) History of angioplasty Status: Chronic (12) History of diverticulosis Status: Chronic (13) History of meningitis Status: Chronic (14) History of migraine Status: Chronic (15) History of thromboembolism Status: Chronic (16) Hx of CABG Status: Chronic (17) Hypothyroidism Status: Chronic Qualifiers: Hypothyroidism type: H (18) S/P cholecystectomy Status: Chronic
[2016-07-03] MEDS: NS 1/2 1000 ML IV 1,000 ML IV SCH ×2 (15:23→15:24)
[2016-07-03] MEDS ORDERED: NS 1/2 1000 ML IV 1,000 ML IV ONE (15:27)
[2016-07-03] MEDS: LIPITOR TAB 40 MG PO SCH (20:52)
[2016-07-03] MEDS: VITAMIN C PO SCH (20:53)
[2016-07-03] MEDS: CARDURA PO SCH (20:53)
[2016-07-03] MEDS: PLAVIX PO SCH (20:54)
[2016-07-03] MEDS: OSCAL+D or CALTRATE+D PO SCH (20:55)
[2016-07-03] MEDS: TRICOR TAB 160 MG PO SCH (20:55)
[2016-07-03] MEDS: NEURONTIN CAP 100 MG PO SCH (20:55)
[2016-07-03] MEDS: FLOMAX PO SCH (20:56)
[2016-07-03] MEDS: SNACK - Diabetic Appropriate PO SCH (20:56)
[2016-07-03] MEDS: NORMODYNE TAB 200 MG PO SCH (20:57)
[2016-07-03] MEDS: [UNRECOGNIZED DRUG - OTHER] PO SCH (20:58)
[2016-07-04 05:17] LABS: ALANINE AMINOTRANSFERASE 49 Units/L (12-78); ALBUMIN 3.4 g/dL (3.4-5.0); ALKALINE PHOSPHATASE 44 Units/L (46-116); ASPARTATE AMINO TRANSFERASE 50 Units/L (15-37); BLOOD UREA NITROGEN 18 mg/dL (7-18); CARBON DIOXIDE 27.7 mmol/L (21-32); CHLORIDE 106 mmol/L (98-107); CREATININE 1.18 mg/dL (0.70-1.30); GLUCOSE 100 mg/dL (65-99); SODIUM 143 mmol/L (136-145); TOTAL PROTEIN 6.7 g/dL (6.4-8.2); eGFR BLACK RACES > 60 (>60); eGFR NON BLACK RACES > 60 (>60)
[2016-07-04 05:45] LABS: BASOPHILS % (AUTO) 0.8 % (0.2-1.0); EOSINOPHILS # (AUTO) 0.1 x10^3/uL (0.0-0.2); EOSINOPHILS % (AUTO) 3.7 % (0.9-2.9); HEMOGLOBIN 12.3 g/dL (13.5-18.0); LYMPHOCYTES # (AUTO) 1.2 X10^3/uL (1.3-2.9); LYMPHOCYTES % (AUTO) 41.8 % (21.0-51.0); MEAN CORPUSCULAR HEMOGLOBIN 29.6 pg (27.0-34.0); MEAN CORPUSCULAR HGB CONC 33.2 g/dL (33.0-35.0); MEAN CORPUSCULAR VOLUME 89.3 fL (80.0-100.0); MEAN PLATELET VOLUME 9.4 fL (7.4-11.0); MONOCYTES # (AUTO) 0.3 x10^3/uL (0.3-0.8); MONOCYTES % (AUTO) 8.8 % (0.0-13.0); NEUTROPHILS # (AUTO) 1.3 x10^3/uL (2.2-4.8); NEUTROPHILS % (AUTO) 44.9 % (42.0-75.0); PLATELET COUNT 138 X10^3/uL (150.0-450.0); RED BLOOD COUNT 4.14 X10^6/uL (4.7-6.0); RED CELL DISTRIBUTION WIDTH 14.7 % (11.6-16.5); WHITE BLOOD COUNT 2.9 X10^3/uL (3.6-10.0)
--- NOTE | 2016-07-04 06:32 | RAD ---
HISTORY: Follow up pneumonia Study: Chest one view Comparison: July 03, 2016 Findings: The patient is status post median sternotomy. The heart is upper limits normal in size. No congestiv e heart failure is noted. No acute alveolar infiltrates are identified. No pleural effusions are pre sent. The bony thorax is unremarkable. IMPRESSION: Lungs clear Reported By:
[2016-07-04] MEDS: DUONEB 0.5 MG/3 MG NEB SCH ×4 (09:22→20:23)
[2016-07-04] MEDS ORDERED: NS 1/2 1000 ML IV 1,000 ML IV ONE (09:32)
[2016-07-04] MEDS: NS 1/2 1000 ML IV 1,000 ML IV SCH ×2 (09:37→22:48)
[2016-07-04] MEDS: VITAMIN B-12 PO SCH (09:39)
[2016-07-04] MEDS: ASPIRIN PO SCH (09:39)
[2016-07-04] MEDS: ROBITUSSIN DM PO SCH ×4 (09:39→21:46)
[2016-07-04] MEDS: K-DUR TAB 20 MEQ PO SCH (09:39)
[2016-07-04] MEDS: CLARITIN PO SCH (09:41)
[2016-07-04] MEDS: TAMIFLU PO SCH ×2 (09:41→21:50)
[2016-07-04] MEDS: HYDROCHLOROTHIAZIDE 12.5 MG CAP PO SCH (09:41)
[2016-07-04] MEDS: ZESTRIL TAB 5 MG PO SCH (09:41)
[2016-07-04] MEDS: PROCARDIA XL PO SCH ×2 (09:41→21:49)
[2016-07-04] MEDS: FOLIC ACID TAB 1 MG PO SCH (09:43)
[2016-07-04] MEDS: MONOKET or IMDUR PO SCH (09:43)
[2016-07-04] MEDS: TAB-A-VITE PO SCH (09:43)
[2016-07-04] MEDS: PEPCID TAB 20 MG PO SCH ×2 (09:44→21:48)
[2016-07-04] MEDS: CORDARONE TAB 200 MG PO SCH (09:46)
[2016-07-04] MEDS: RANEXA PO SCH ×2 (09:46→21:47)
[2016-07-04] MEDS: VIBRAMYCIN 100 MG in D5W 250 ML IV 250 ML IV SCH ×2 (09:47→21:45)
[2016-07-04] MEDS: SYNTHROID 175 mcg TAB PO SCH (17:26)
--- NOTE | 2016-07-04 17:38 | PCM.PROG ---
Progress Note - Progress Note for Day of Date: 07/04/16 - Subjective Subjective: PATIENT IS SITTING UP IN CHAIR UPON ROUNDS. PATIENT REPORTS HE IS FEELING A LITTLE BETTER EACH DAY. PATIENT HAS A LARGE ABDOMINAL HERNIA. ABDOMINAL HERNIA IS TOO LARGE TO BECOME ENCARCERATED. WE DISCUSS NON-SUGICAL TREATMENT AT THIS TIME. PATIENT IS WITH PLEASANT AFFECT. PATIENT CONTINUES WITH COUGH AND CHEST CONGESTION. HE CONTINUES WITH A COARSE, NON-PRODUCTIVE COUGH. PATIENT HAS SHORTNESS OF BREATH ON EXERTION. ON AUSCULTATION, LUNGS CONTINUE WITH SCATTERED WHEEZING THROUGHOUT. VITAL SIGNS STABLE, AFEBRILE. CBC WNL EXCEPT: WBC 2.9, H/H 12.3/37.0, PLT COUNT 138. CMP WNL EXCEPT: POTASSIUM 3.2, GLUCOSE 100. INR 1.36. CHEST XRAY REPORTS LUNGS CLEAR. WE WILL CONTINUE WITH CURRENT TREATMENT AND FOLLOW UP IN AM WITH LABS. - Past Medical Family Social History Past Med/Fam/Surg Hx: No changes since H&P Allergies: Allergies Penicillins Allergy (Intermediate, Verified 07/01/16 08:17) - Review of Systems ROS: No change since H&P - Vital Signs and I&O's Vital Signs: Temperature 98.3 F Pulse Rate [Right Brachial] 66 Pulse Rate [Left Brachial] 70 Pulse Rate 82 Respiratory Rate 18 Blood Pressure [Left Arm] 130/63 Blood Pressure [Right Arm] 128/78 O2 Sat by Pulse Oximetry 95 Intake and Output: Intake & Output 07/02/16 07/03/16 07/04/16 07/05/16 11:59 11:59 11:59 11:59 Intake Total 2300 2019 3653 850 Balance 2300 2019 3653 850 - Physical Exam Oriented: Normal, Time, Person, Place Eyes: Normal. negative: Blurred Vision, Diplopia, Discharge, Pain, Redness, Photophobia Ear: Normal. negative: Swelling, Ecchymosis, Hemotypanum, Abrasion, Laceration Nose: Normal. negative: Injected, Discharge, Blood Throat: Red, Dry. negative: Tonsillar Hypertrophy, Exudate Respiratory: Generalized, Wheezes Cardiovascular: Normal. negative: Murmur, Edema : Normal. negative: Dysuria, Hematuria, Frequency, Discharge, Testicular Pain Auscultation: Bowel Sounds: Normal. negative: Bruit Palpation: Normal. negative: Spleen Enlarged, Liver Enlarged, Mass Pulsatile Tenderness: Normal. negative: Rebound, Guarding, Rigidity Skin: Normal. negative: Diaphoresis, Wound, Bruising, Ecchymosis Musculoskeletal: Instability Psychiatric: Normal Mood Description: Calm, Appropriate Affect: Normal Speech Pattern: Clear, Appropriate - Laboratory and Diagnostics Result Diagrams: 07/04/16 03:50 07/04/16 03:50 Labs: 07/01/16 10:21 Sputum - Expectorated Sputum Sputum Culture - Final 07/01/16 10:21 Sputum - Expectorated Sputum - Final Laboratory WBC 2.9 X10^3/uL (3.6-10.0) L 07/04/16 03:50 RBC 4.14 X10^6/uL (4.7-6.0) L 07/04/16 03:50 Hgb 12.3 g/dL (13.5-18.0) L 07/04/16 03:50 Hct 37.0 % (42.0-54.0) L 07/04/16 03:50 MCV 89.3 fL (80.0-100.0) 07/04/16 03:50 MCH 29.6 pg (27.0-34.0) 07/04/16 03:50 MCHC 33.2 g/dL (33.0-35.0) 07/04/16 03:50 RDW 14.7 % (11.6-16.5) 07/04/16 03:50 Plt Count 138 X10^3/uL (150.0-450.0) L 07/04/16 03:50 Plt Count Comment Decreased (ADEQUATE) 07/03/16 03:40 MPV 9.4 fL (7.4-11.0) 07/04/16 03:50 Neut % 44.9 % (42.0-75.0) 07/04/16 03:50 Lymph % 41.8 % (21.0-51.0) 07/04/16 03:50 [place] % 8.8 % (0.0-13.0) 07/04/16 03:50 Eos % 3.7 % (0.9-2.9) H 07/04/16 03:50 Baso % 0.8 % (0.2-1.0) 07/04/16 03:50 Neut # 1.3 x10^3/uL (2.2-4.8) L 07/04/16 03:50 Lymph # 1.2 X10^3/uL (1.3-2.9) L 07/04/16 03:50 [place] # 0.3 x10^3/uL (0.3-0.8) 07/04/16 03:50 Eos # 0.1 x10^3/uL (0.0-0.2) 07/04/16 03:50 Baso # 0.0 X10^3/uL (0.0-0.1) 07/04/16 03:50 Absolute Nucleated RBC 0.3 /100WBC 07/04/16 03:50 Total Counted 100 07/03/16 03:40 Neutrophils % (Manual) 40 % (39-76) 07/03/16 03:40 Band Neutrophils % 2 % (0-10) 07/03/16 03:40 Lymphocytes % (Manual) 47 % (13-43) H 07/03/16 03:40 Monocytes % (Manual) 9 % (4-9) 07/03/16 03:40 Eosinophils % (Manual) 2 % (0-6) 07/03/16 03:40 Basophils % (Manual) 2 % (0-1) H 07/02/16 03:50 Plt Morphology Comment Normal (NORMAL) 07/03/16 03:40 RBC Morphology Normal (NORMAL) 07/03/16 03:40 INR Target Range - 07/04/16 03:50 INR 1.36 (0.8-1.3) H 07/04/16 03:50 Sodium 143 mmol/L (136-145) 07/04/16 03:50 Corrected Sodium TNP 07/04/16 03:50 Potassium 3.2 mmol/L (3.5-5.1) L 07/04/16 03:50 Chloride 106 mmol/L (98-107) 07/04/16 03:50 Carbon Dioxide 27.7 mmol/L (21-32) 07/04/16 03:50 BUN 18 mg/dL (7-18) 07/04/16 03:50 Creatinine 1.18 mg/dL (0.70-1.30) 07/04/16 03:50 Est GFR (MDRD) Af Amer > 60 (>60) 07/04/16 03:50 Est GFR (MDRD) Non-Af > 60 (>60) 07/04/16 03:50 Glucose 100 mg/dL (65-99) H 07/04/16 03:50 Lactic Acid 2.8 mmol/L (0.4-2.0) H 07/01/16 10:40 Calcium 9.0 mg/dL (8.5-10.1) 07/04/16 03:50 Corrected Calcium TNP 07/04/16 03:50 Total Bilirubin 0.60 mg/dL (0.2-1.0) 07/04/16 03:50 AST 50 Units/L (15-37) H 07/04/16 03:50 ALT 49 Units/L (12-78) 07/04/16 03:50 Alkaline Phosphatase 44 Units/L (46-116) L 07/04/16 03:50 Total Protein 6.7 g/dL (6.4-8.2) 07/04/16 03:50 Albumin 3.4 g/dL (3.4-5.0) 07/04/16 03:50 Globulin 3.3 g/dL (2.5-4.5) 07/04/16 03:50 Albumin/Globulin Ratio 1.0 Ratio (1.1-2.1) L 07/04/16 03:50 Specimen Type Clean catch urine 07/01/16 11:05 Urine Color Yellow (YELLOW) 07/01/16 11:05 Urine Appearance Hazy (CLEAR) 07/01/16 11:05 Urine pH 6.0 (5.0 - 8.0) 07/01/16 11:05 Ur Specific [place] 1.010 (1.000-1.030) 07/01/16 11:05 Urine Protein Negative (NEGATIVE) 07/01/16 11:05 Urine Glucose (UA) Negative (NEGATIVE) 07/01/16 11:05 Urine Ketones Negative (NEGATIVE) 07/01/16 11:05 Urine Occult Blood Negative (NEGATIVE) 07/01/16 11:05 Urine Nitrite Negative (NEGATIVE) 07/01/16 11:05 Urine Bilirubin Negative (NEGATIVE) 07/01/16 11:05 Urine Urobilinogen Normal (NORMAL) 07/01/16 11:05 Ur Leukocyte Esterase 1+ (NEGATIVE) 07/01/16 11:05 Urine RBC 0-2 /HPF (NEGATIVE) 07/01/16 11:05 Urine WBC 0-2 /HPF (NEGATIVE) 07/01/16 11:05 Ur Squamous Epith Cells Negative /HPF (NEGATIVE) 07/01/16 11:05 Urine Bacteria Trace /HPF (NEGATIVE) 07/01/16 11:05 Ur Culture Indicated? No/not indicated 07/01/16 11:05 Influenza A (H1N1) PCR Not detected (NOT DETECT) 07/01/16 08:35 Influenza Type A (PCR) Positive (NEGATIVE) A 07/01/16 08:35 Influenza Type B (PCR) Negative (NEGATIVE) 07/01/16 08:35 - Plan (1) Pneumonia Status: Acute Qualifiers: Pneumonia type: due to unspecified organism Aspiration pneumonia type: A Laterality: bilateral Lung location: lower lobe of lung Qualified Code(s): J18.9 - Pneumonia, unspecified organism Plan: CONTINUE PNEUMONIA PROTOCOL WITH IV ANTIBIOTICS, DUONEBS, SUPPLEMENTAL OXYGEN, ROBITUSSION, MONITOR LABS AND CHEST XRAY. (2) Respiratory distress Status: Acute Plan: ABOVE. (3) Abdominal hernia without obstruction and without gangrene Status: Chronic Qualifiers: Hernia type: ventral Laterality: L Recurrence: R Qualified Code(s): K43.9 - Ventral hernia without obstruction or gangrene Plan: CONTINUE TO MONITOR. (4) Influenza A Status: Acute Plan: CONTINUE TAMIFLU, MONITOR. (5) CAD (coronary artery disease) Status: Chronic Qualifiers: Coronary Disease-Associated Artery/Lesion type: [place] artery [place] vs. transplanted heart: [place] heart Associated angina: without angina Qualified Code(s): I25.10 - Atherosclerotic heart disease of [place] coronary artery without angina pectoris (6) Diabetes Status: Chronic Qualifiers: Diabetes mellitus type: type 2 Diabetes mellitus complication status: without complication Diabetes mellitus complication detail: D Diabetic retinopathy severity: D Proliferative retinopathy type: P Diabetes mellitus macular edema: D Diabetes mellitus long-term insulin use: without long-term use Laterality: L Chronic kidney disease stage: C Qualified Code(s): E11.9 - Type 2 diabetes mellitus without complications (7) GERD (gastroesophageal reflux disease) Status: Chronic Qualifiers: Esophagitis presence: esophagitis presence not specified Qualified Code(s) : K21.9 - Gastro-esophageal reflux disease without esophagitis (8) History of CHF (congestive heart failure) Status: Chronic (9) Hypertension Status: Chronic Qualifiers: Hypertension type: essential hypertension Qualified Code(s): I10 - Essential (primary) hypertension (10) Hyperlipidemia Status: Chronic Qualifiers: Hyperlipidemia type: mixed hyperlipidemia Qualified Code(s): E78.2 - Mixed hyperlipidemia (11) History of OR (myocardial infarction) Status: Chronic (12) History of angioplasty Status: Chronic (13) History of diverticulosis Status: Chronic (14) History of meningitis Status: Chronic (15) History of migraine Status: Chronic (16) History of thromboembolism Status: Chronic (17) Hx of CABG Status: Chronic (18) Hypothyroidism Status: Chronic Qualifiers: Hypothyroidism type: H (19) S/P cholecystectomy Status: Chronic
[2016-07-04] MEDS: PLAVIX PO SCH (21:46)
[2016-07-04] MEDS: VITAMIN C PO SCH (21:47)
[2016-07-04] MEDS: CARDURA PO SCH (21:47)
[2016-07-04] MEDS: FLOMAX PO SCH (21:48)
[2016-07-04] MEDS: TRICOR TAB 160 MG PO SCH (21:48)
[2016-07-04] MEDS: NORMODYNE TAB 200 MG PO SCH (21:48)
[2016-07-04] MEDS: LIPITOR TAB 40 MG PO SCH (21:49)
[2016-07-04] MEDS: NEURONTIN CAP 100 MG PO SCH (21:49)
[2016-07-04] MEDS: [UNRECOGNIZED DRUG - OTHER] PO SCH (21:50)
[2016-07-04] MEDS: OSCAL+D or CALTRATE+D PO SCH (21:50)
[2016-07-04] MEDS: SNACK - Diabetic Appropriate PO SCH (21:51)
[2016-07-05] MEDS ORDERED: NS 1/2 1000 ML IV 1,000 ML IV ONE ×2 (02:16→15:15)
[2016-07-05] MEDS: NS 1/2 1000 ML IV 1,000 ML IV SCH ×3 (02:20→15:17)
[2016-07-05 05:15] LABS: BASOPHILS % (AUTO) 0.7 % (0.2-1.0); EOSINOPHILS # (AUTO) 0.1 x10^3/uL (0.0-0.2); EOSINOPHILS % (AUTO) 2.6 % (0.9-2.9); HEMATOCRIT 37.3 % (42.0-54.0); HEMOGLOBIN 12.3 g/dL (13.5-18.0); LYMPHOCYTES # (AUTO) 1.3 X10^3/uL (1.3-2.9); LYMPHOCYTES % (AUTO) 37.2 % (21.0-51.0); MEAN CORPUSCULAR HEMOGLOBIN 29.4 pg (27.0-34.0); MEAN CORPUSCULAR HGB CONC 32.9 g/dL (33.0-35.0); MEAN CORPUSCULAR VOLUME 89.3 fL (80.0-100.0); MEAN PLATELET VOLUME 9.8 fL (7.4-11.0); MONOCYTES # (AUTO) 0.3 x10^3/uL (0.3-0.8); MONOCYTES % (AUTO) 8.8 % (0.0-13.0); NEUTROPHILS # (AUTO) 1.8 x10^3/uL (2.2-4.8); NEUTROPHILS % (AUTO) 50.7 % (42.0-75.0); PLATELET COUNT 143 X10^3/uL (150.0-450.0); RED BLOOD COUNT 4.18 X10^6/uL (4.7-6.0); RED CELL DISTRIBUTION WIDTH 14.8 % (11.6-16.5); WHITE BLOOD COUNT 3.5 X10^3/uL (3.6-10.0)
[2016-07-05 05:34] LABS: ALANINE AMINOTRANSFERASE 50 Units/L (12-78); ALBUMIN 3.2 g/dL (3.4-5.0); ALKALINE PHOSPHATASE 42 Units/L (46-116); ASPARTATE AMINO TRANSFERASE 50 Units/L (15-37); BLOOD UREA NITROGEN 18 mg/dL (7-18); CALCIUM 8.7 mg/dL (8.5-10.1); CARBON DIOXIDE 28.1 mmol/L (21-32); CHLORIDE 106 mmol/L (98-107); COR CA(FOR HYPOALB) 9.3 mg/dL (8.5-10.1); CREATININE 1.18 mg/dL (0.70-1.30); GLUCOSE 97 mg/dL (65-99); SODIUM 144 mmol/L (136-145); TOTAL PROTEIN 6.4 g/dL (6.4-8.2); eGFR BLACK RACES > 60 (>60); eGFR NON BLACK RACES > 60 (>60)
--- NOTE | 2016-07-05 06:15 | RAD ---
HISTORY: Cough, congestion Study: Chest one view Comparison: July 04, 2016 Findings: The patient is status post median sternotomy. The heart remains upper limits normal in size. No leonidas estive heart failure is noted. No alveolar infiltrates or pleural effusions are present. The bony th orax is unremarkable with the exception of bilateral chronic rotator cuff disease. IMPRESSION: Lungs clear Reported By:
[2016-07-05] MEDS ORDERED: K-DUR TAB 20 MEQ PO PRN (08:10)
[2016-07-05] MEDS ORDERED: POTASSIUM CHLORIDE LIQ 20 MEQ UDC PO PRN (08:10)
[2016-07-05] MEDS ORDERED: K-LYTE EFFERVESCENT PO PRN (08:10)
[2016-07-05] MEDS ORDERED: K-RIDER 10 MEQ/NS 100 ML 10 MEQ/100 ML BAG IV PRN (08:10)
[2016-07-05] MEDS: MONOKET or IMDUR PO SCH (09:01)
[2016-07-05] MEDS: ROBITUSSIN DM PO SCH ×4 (09:01→21:01)
[2016-07-05] MEDS: ASPIRIN PO SCH (09:01)
[2016-07-05] MEDS: ZESTRIL TAB 5 MG PO SCH (09:01)
[2016-07-05] MEDS: PROCARDIA XL PO SCH ×2 (09:02→21:03)
[2016-07-05] MEDS: CLARITIN PO SCH (09:02)
[2016-07-05] MEDS: PEPCID TAB 20 MG PO SCH ×2 (09:02→21:03)
[2016-07-05] MEDS: K-DUR TAB 20 MEQ PO SCH (09:02)
[2016-07-05] MEDS: HYDROCHLOROTHIAZIDE 12.5 MG CAP PO SCH (09:02)
[2016-07-05] MEDS: TAMIFLU PO SCH ×2 (09:02→21:01)
[2016-07-05] MEDS: FOLIC ACID TAB 1 MG PO SCH (09:02)
[2016-07-05] MEDS: CORDARONE TAB 200 MG PO SCH (09:03)
[2016-07-05] MEDS: TAB-A-VITE PO SCH (09:03)
[2016-07-05] MEDS: RANEXA PO SCH ×2 (09:04→21:01)
[2016-07-05] MEDS: VITAMIN B-12 PO SCH (09:04)
[2016-07-05] MEDS: VIBRAMYCIN 100 MG in D5W 250 ML IV 250 ML IV SCH ×2 (09:04→21:03)
[2016-07-05] MEDS: DUONEB 0.5 MG/3 MG NEB SCH ×4 (09:24→20:42)
[2016-07-05] MEDS: SYNTHROID 175 mcg TAB PO SCH (16:09)
[2016-07-05] MEDS: SNACK - Diabetic Appropriate PO SCH (20:58)
[2016-07-05] MEDS: CARDURA PO SCH (21:01)
[2016-07-05] MEDS: VITAMIN C PO SCH (21:02)
[2016-07-05] MEDS: NEURONTIN CAP 100 MG PO SCH (21:02)
[2016-07-05] MEDS: NORMODYNE TAB 200 MG PO SCH (21:02)
[2016-07-05] MEDS: PLAVIX PO SCH (21:02)
[2016-07-05] MEDS: LIPITOR TAB 40 MG PO SCH (21:03)
[2016-07-05] MEDS: OSCAL+D or CALTRATE+D PO SCH (21:03)
[2016-07-05] MEDS: FLOMAX PO SCH (21:03)
[2016-07-05] MEDS: TRICOR TAB 160 MG PO SCH (21:04)
[2016-07-05] MEDS: [UNRECOGNIZED DRUG - OTHER] PO SCH (21:04)
[2016-07-06] MEDS: NS 1/2 1000 ML IV 1,000 ML IV SCH (04:15)
[2016-07-06 05:48] LABS: ALANINE AMINOTRANSFERASE 49 Units/L (12-78); ALBUMIN 3.3 g/dL (3.4-5.0); ALKALINE PHOSPHATASE 40 Units/L (46-116); ASPARTATE AMINO TRANSFERASE 44 Units/L (15-37); BLOOD UREA NITROGEN 17 mg/dL (7-18); CALCIUM 9.2 mg/dL (8.5-10.1); CARBON DIOXIDE 28.7 mmol/L (21-32); CHLORIDE 106 mmol/L (98-107); COR CA(FOR HYPOALB) 9.8 mg/dL (8.5-10.1); CREATININE 1.15 mg/dL (0.70-1.30); GLUCOSE 91 mg/dL (65-99); SODIUM 144 mmol/L (136-145); TOTAL PROTEIN 6.5 g/dL (6.4-8.2); eGFR BLACK RACES > 60 (>60); eGFR NON BLACK RACES > 60 (>60)
[2016-07-06 06:02] LABS: BASOPHILS % (AUTO) 0.9 % (0.2-1.0); EOSINOPHILS # (AUTO) 0.1 x10^3/uL (0.0-0.2); EOSINOPHILS % (AUTO) 2.9 % (0.9-2.9); HEMATOCRIT 37.4 % (42.0-54.0); HEMOGLOBIN 12.4 g/dL (13.5-18.0); LYMPHOCYTES # (AUTO) 1.5 X10^3/uL (1.3-2.9); LYMPHOCYTES % (AUTO) 34.6 % (21.0-51.0); MEAN CORPUSCULAR HEMOGLOBIN 29.6 pg (27.0-34.0); MEAN CORPUSCULAR HGB CONC 33.3 g/dL (33.0-35.0); MEAN CORPUSCULAR VOLUME 88.7 fL (80.0-100.0); MEAN PLATELET VOLUME 9.6 fL (7.4-11.0); MONOCYTES # (AUTO) 0.4 x10^3/uL (0.3-0.8); MONOCYTES % (AUTO) 9.8 % (0.0-13.0); NEUTROPHILS # (AUTO) 2.3 x10^3/uL (2.2-4.8); NEUTROPHILS % (AUTO) 51.8 % (42.0-75.0); PLATELET COUNT 155 X10^3/uL (150.0-450.0); RED BLOOD COUNT 4.21 X10^6/uL (4.7-6.0); RED CELL DISTRIBUTION WIDTH 14.9 % (11.6-16.5); WHITE BLOOD COUNT 4.4 X10^3/uL (3.6-10.0)
--- NOTE | 2016-07-06 06:24 | RAD ---
HISTORY: Follow up pneumonia Study: Chest one view Comparison: July 05, 2016 Findings: The patient is status post median sternotomy. The heart remains upper limits normal in size peer E n o congestive heart failure or acute infiltrates are identified. No pleural effusions are identified. The bony thorax is unremarkable with the exception of chronic rotator cuff disease bilaterally. IMPRESSION: Lungs clear Reported By:
[2016-07-06] MEDS: DUONEB 0.5 MG/3 MG NEB SCH (08:58)
[2016-07-06] MEDS: VIBRAMYCIN 100 MG in D5W 250 ML IV 250 ML IV SCH (09:14)
[2016-07-06] MEDS: ROBITUSSIN DM PO SCH (09:14)
[2016-07-06] MEDS: TAB-A-VITE PO SCH (09:16)
[2016-07-06] MEDS: ASPIRIN PO SCH (09:16)
[2016-07-06] MEDS: FOLIC ACID TAB 1 MG PO SCH (09:16)
[2016-07-06] MEDS: HYDROCHLOROTHIAZIDE 12.5 MG CAP PO SCH (09:16)
[2016-07-06] MEDS: ZESTRIL TAB 5 MG PO SCH (09:16)
[2016-07-06] MEDS: CLARITIN PO SCH (09:16)
[2016-07-06] MEDS: TAMIFLU PO SCH (09:16)
[2016-07-06] MEDS: MONOKET or IMDUR PO SCH (09:16)
[2016-07-06] MEDS: PEPCID TAB 20 MG PO SCH (09:16)
[2016-07-06] MEDS: PROCARDIA XL PO SCH (09:16)
[2016-07-06] MEDS: K-DUR TAB 20 MEQ PO SCH (09:16)
[2016-07-06] MEDS: RANEXA PO SCH (09:17)
[2016-07-06] MEDS: CORDARONE TAB 200 MG PO SCH (09:17)
[2016-07-06] MEDS: VITAMIN B-12 PO SCH (09:17)
--- NOTE | 2016-07-06 10:39 | PCM.PROG ---
Progress Note - Progress Note for Day of Date: 07/05/16 - Subjective Subjective: PATIENT IS NOTED WITH COUGHING AND CHEST CONGESTION UPON ROUNDS. COUGH CONTINUES TO BE COARSE, NON-PRODUCTIVE COUGH. PATIENT ALSO CONTINUES WITH SHORTNESS OF BREATH ON EXERTION. ON AUSCULTATION, LUNGS CONTINUE WITH SCATTERED WHEEZING THROUGHOUT. VITAL SIGNS STABLE, AFEBRILE. CBC WNL EXCEPT: WBC 3.5, H/H 12.3/37.3, PLT COUNT 143. CMP WNL EXCEPT: POTASSIUM 3.3, ALBUMIN 3.2. INR 1.25. CHEST XRAY REPORTS LUNGS CLEAR. WE WILL CONTINUE WITH IV ANTIBIOTICS, AGGRESSIVE NEB TREATMENTS, AND FOLLOW UP IN AM WITH LABS. - Past Medical Family Social History Past Med/Fam/Surg Hx: No changes since H&P Allergies: Allergies Penicillins Allergy (Intermediate, Verified 07/01/16 08:17) - Review of Systems ROS: No change since H&P - Vital Signs and I&O's Vital Signs: Temperature 98.5 F Pulse Rate [Right Brachial] 54 Pulse Rate [Left Brachial] 77 Pulse Rate 64 Respiratory Rate 22 Blood Pressure [Left Arm] 117/58 Blood Pressure [Right Arm] 128/78 O2 Sat by Pulse Oximetry 96 Intake and Output: Intake & Output 07/03/16 07/04/16 07/05/16 07/06/16 11:59 11:59 11:59 11:59 Intake Total 2019 3653 3250 4589 Balance 2019 3653 3250 4584 - Physical Exam Oriented: Normal, Time, Person, Place Eyes: Normal. negative: Blurred Vision, Diplopia, Discharge, Pain, Redness, Photophobia Ear: Normal. negative: Swelling, Ecchymosis, Hemotypanum, Abrasion, Laceration Nose: Normal. negative: Injected, Discharge, Blood Throat: Red, Dry. negative: Tonsillar Hypertrophy, Exudate Respiratory: Generalized, Wheezes Cardiovascular: Normal. negative: Murmur, Edema : Normal. negative: Dysuria, Hematuria, Frequency, Discharge, Testicular Pain Auscultation: Bowel Sounds: Normal. negative: Bruit Palpation: Normal. negative: Spleen Enlarged, Liver Enlarged, Mass Pulsatile Tenderness: Normal. negative: Rebound, Guarding, Rigidity Skin: Normal. negative: Diaphoresis, Wound, Bruising, Ecchymosis Musculoskeletal: Instability Psychiatric: Normal Mood Description: Calm, Appropriate Affect: Normal Speech Pattern: Clear, Appropriate - Laboratory and Diagnostics Result Diagrams: 07/06/16 03:55 07/06/16 03:55 Labs: 07/01/16 10:21 Sputum - Expectorated Sputum Sputum Culture - Final 07/01/16 10:21 Sputum - Expectorated Sputum - Final Laboratory WBC 4.4 X10^3/uL (3.6-10.0) 07/06/16 03:55 RBC 4.21 X10^6/uL (4.7-6.0) L 07/06/16 03:55 Hgb 12.4 g/dL (13.5-18.0) L 07/06/16 03:55 Hct 37.4 % (42.0-54.0) L 07/06/16 03:55 MCV 88.7 fL (80.0-100.0) 07/06/16 03:55 MCH 29.6 pg (27.0-34.0) 07/06/16 03:55 MCHC 33.3 g/dL (33.0-35.0) 07/06/16 03:55 RDW 14.9 % (11.6-16.5) 07/06/16 03:55 Plt Count 155 X10^3/uL (150.0-450.0) 07/06/16 03:55 Plt Count Comment Decreased (ADEQUATE) 07/03/16 03:40 MPV 9.6 fL (7.4-11.0) 07/06/16 03:55 Neut % 51.8 % (42.0-75.0) 07/06/16 03:55 Lymph % 34.6 % (21.0-51.0) 07/06/16 03:55 [place] % 9.8 % (0.0-13.0) 07/06/16 03:55 Eos % 2.9 % (0.9-2.9) 07/06/16 03:55 Baso % 0.9 % (0.2-1.0) 07/06/16 03:55 Neut # 2.3 x10^3/uL (2.2-4.8) 07/06/16 03:55 Lymph # 1.5 X10^3/uL (1.3-2.9) 07/06/16 03:55 [place] # 0.4 x10^3/uL (0.3-0.8) 07/06/16 03:55 Eos # 0.1 x10^3/uL (0.0-0.2) 07/06/16 03:55 Baso # 0.0 X10^3/uL (0.0-0.1) 07/06/16 03:55 Absolute Nucleated RBC 0.1 /100WBC 07/06/16 03:55 Total Counted 100 07/03/16 03:40 Neutrophils % (Manual) 40 % (39-76) 07/03/16 03:40 Band Neutrophils % 2 % (0-10) 07/03/16 03:40 Lymphocytes % (Manual) 47 % (13-43) H 07/03/16 03:40 Monocytes % (Manual) 9 % (4-9) 07/03/16 03:40 Eosinophils % (Manual) 2 % (0-6) 07/03/16 03:40 Basophils % (Manual) 2 % (0-1) H 07/02/16 03:50 Plt Morphology Comment Normal (NORMAL) 07/03/16 03:40 RBC Morphology Normal (NORMAL) 07/03/16 03:40 INR Target Range - 07/06/16 03:55 INR 1.27 (0.8-1.3) 07/06/16 03:55 Sodium 144 mmol/L (136-145) 07/06/16 03:55 Corrected Sodium TNP 07/06/16 03:55 Potassium 4.1 mmol/L (3.5-5.1) 07/06/16 03:55 Chloride 106 mmol/L (98-107) 07/06/16 03:55 Carbon Dioxide 28.7 mmol/L (21-32) 07/06/16 03:55 BUN 17 mg/dL (7-18) 07/06/16 03:55 Creatinine 1.15 mg/dL (0.70-1.30) 07/06/16 03:55 Est GFR (MDRD) Af Amer > 60 (>60) 07/06/16 03:55 Est GFR (MDRD) Non-Af > 60 (>60) 07/06/16 03:55 Glucose 91 mg/dL (65-99) 07/06/16 03:55 Lactic Acid 2.8 mmol/L (0.4-2.0) H 07/01/16 10:40 Calcium 9.2 mg/dL (8.5-10.1) 07/06/16 03:55 Corrected Calcium 9.8 mg/dL (8.5-10.1) 07/06/16 03:55 Total Bilirubin 0.60 mg/dL (0.2-1.0) 07/06/16 03:55 AST 44 Units/L (15-37) H 07/06/16 03:55 ALT 49 Units/L (12-78) 07/06/16 03:55 Alkaline Phosphatase 40 Units/L (46-116) L 07/06/16 03:55 Total Protein 6.5 g/dL (6.4-8.2) 07/06/16 03:55 Albumin 3.3 g/dL (3.4-5.0) L 07/06/16 03:55 Globulin 3.2 g/dL (2.5-4.5) 07/06/16 03:55 Albumin/Globulin Ratio 1.0 Ratio (1.1-2.1) L 07/06/16 03:55 Specimen Type Clean catch urine 07/01/16 11:05 Urine Color Yellow (YELLOW) 07/01/16 11:05 Urine Appearance Hazy (CLEAR) 07/01/16 11:05 Urine pH 6.0 (5.0 - 8.0) 07/01/16 11:05 Ur Specific [place] 1.010 (1.000-1.030) 07/01/16 11:05 Urine Protein Negative (NEGATIVE) 07/01/16 11:05 Urine Glucose (UA) Negative (NEGATIVE) 07/01/16 11:05 Urine Ketones Negative (NEGATIVE) 07/01/16 11:05 Urine Occult Blood Negative (NEGATIVE) 07/01/16 11:05 Urine Nitrite Negative (NEGATIVE) 07/01/16 11:05 Urine Bilirubin Negative (NEGATIVE) 07/01/16 11:05 Urine Urobilinogen Normal (NORMAL) 07/01/16 11:05 Ur Leukocyte Esterase 1+ (NEGATIVE) 07/01/16 11:05 Urine RBC 0-2 /HPF (NEGATIVE) 07/01/16 11:05 Urine WBC 0-2 /HPF (NEGATIVE) 07/01/16 11:05 Ur Squamous Epith Cells Negative /HPF (NEGATIVE) 07/01/16 11:05 Urine Bacteria Trace /HPF (NEGATIVE) 07/01/16 11:05 Ur Culture Indicated? No/not indicated 07/01/16 11:05 Influenza A (H1N1) PCR Not detected (NOT DETECT) 07/01/16 08:35 Influenza Type A (PCR) Positive (NEGATIVE) A 07/01/16 08:35 Influenza Type B (PCR) Negative (NEGATIVE) 07/01/16 08:35 - Plan (1) Pneumonia Status: Acute Qualifiers: Pneumonia type: due to unspecified organism Aspiration pneumonia type: A Laterality: bilateral Lung location: lower lobe of lung Qualified Code(s): J18.9 - Pneumonia, unspecified organism Plan: CONTINUE PNEUMONIA PROTOCOL WITH IV ANTIBIOTICS, DUONEBS, SUPPLEMENTAL OXYGEN, ROBITUSSION, MONITOR LABS AND CHEST XRAY. (2) Respiratory distress Status: Acute Plan: ABOVE. (3) Abdominal hernia without obstruction and without gangrene Status: Chronic Qualifiers: Hernia type: ventral Laterality: L Recurrence: R Qualified Code(s): K43.9 - Ventral hernia without obstruction or gangrene Plan: CONTINUE TO MONITOR. (4) Influenza A Status: Acute Plan: CONTINUE TAMIFLU, MONITOR. (5) CAD (coronary artery disease) Status: Chronic Qualifiers: Coronary Disease-Associated Artery/Lesion type: [place] artery [place] vs. transplanted heart: [place] heart Associated angina: without angina Qualified Code(s): I25.10 - Atherosclerotic heart disease of [place] coronary artery without angina pectoris (6) Diabetes Status: Chronic Qualifiers: Diabetes mellitus type: type 2 Diabetes mellitus complication status: without complication Diabetes mellitus complication detail: D Diabetic retinopathy severity: D Proliferative retinopathy type: P Diabetes mellitus macular edema: D Diabetes mellitus [employer] insulin use: without shelter use Laterality: L Chronic kidney disease stage: C Qualified Code(s): E11.9 - Type 2 diabetes mellitus without complications (7) GERD (gastroesophageal reflux disease) Status: Chronic Qualifiers: Esophagitis presence: esophagitis presence not specified Qualified Code(s) : K21.9 - Gastro-esophageal reflux disease without esophagitis (8) History of CHF (congestive heart failure) Status: Chronic (9) Hypertension Status: Chronic Qualifiers: Hypertension type: essential hypertension Qualified Code(s): I10 - Essential (primary) hypertension (10) Hyperlipidemia Status: Chronic Qualifiers: Hyperlipidemia type: mixed hyperlipidemia Qualified Code(s): E78.2 - Mixed hyperlipidemia (11) History of CT (myocardial infarction) Status: Chronic (12) History of angioplasty Status: Chronic (13) History of diverticulosis Status: Chronic (14) History of meningitis Status: Chronic (15) History of migraine Status: Chronic (16) History of thromboembolism Status: Chronic (17) Hx of CABG Status: Chronic (18) Hypothyroidism Status: Chronic Qualifiers: Hypothyroidism type: H (19) S/P cholecystectomy Status: Chronic
[2016-07-06 11:41] VITALS: BP 135/61
== END 2016-07-06 12:15 | disposition home or self-care (01) | DRG 195 ==
LOC: ER 08:21 → MED/SURG 09:46
PROVIDERS: ADMIT Internal Medicine; ATTEND Internal Medicine
DX: J18.1 Lobar pneumonia, unspecified organism (principal); J10.08 Influenza due to other identified influenza virus with other specified pneumonia; K21.9 Gastro-esophageal reflux disease without esophagitis; I10 Essential (primary) hypertension; E03.8 Other specified hypothyroidism; I50.9 Heart failure, unspecified; R53.1 Weakness; R06.02 Shortness of breath; R06.00 Dyspnea, unspecified; I25.10 Atherosclerotic heart disease of native coronary artery without angina pectoris; K45.8 Other specified abdominal hernia without obstruction or gangrene; E11.9 Type 2 diabetes mellitus without complications
CPT/HCPCS: 36415; 71010; 71020; 80053; 81001; 83605; 84132; 85025; 85610; 87040; 87070; 87205; 87502; 87503; 94640; 94760; 96365; 96374; 99284; A4222; G9035; J1956; J3490; J7620

== ENCOUNTER → 2016-07-13 | Outpatient (CLI) | payer OTHER, MEDICARE ==
[2016-07-06 11:41] VITALS: BP 135/61
[~2016-07-13] MED LIST: NS 100 ML IV 100 ML IV ONE
--- NOTE | 2016-07-16 08:38 | CT ---
CT OF THE ABDOMEN AND PELVIS WITH CONTRAST HISTORY: Epigastric abdominal wall bulging Comparison: 04/10/2014 Technique: Multiple axial images of the abdomen and pelvis were obtained from the lung bases to the pubic symph ysis follow the administration of IV contrast as well as oral contrast. Dose reduction techniques i ncluding Automated Exposure Control (AEC) and adjustment of mA and kV were utlized. Findings: Heart is enlarged. There is no pericardial effusion. Lung bases are clear without focal consolidatio n, pleural effusion or pneumothorax. Extensive coronary calcification. Liver and spleen are normal in size, enhancement characteristics and contour. No focal lesions. The portal vein is patent. No ductal dilitation. Gallbladder absent. The pancreas is unremarkable. Adren al glands are normal. Kidneys enhance symmetrically without hydronephrosis or nephrolithiasis. No bowel obstruction or inflammation. Normal appendix. Severe diverticulosis without diverticulitis. No abnormal appearing mesenteric or retroperitoneal lymph nodes. No free fluid or fluid collections . Small umbilical hernia containing loop of small bowel without evidence of obstruction. Mouth measu res 1.9 cm on series 4, image 62. This is essentially identical to prior The bladder is normal in appearance. Prostate not enlarged. No free fluid or abnormal pelvic lymph n odes. No aggressive osseous lesions. IMPRESSION: 1. Small umbilical hernia without obstruction. No significant change from prior. 2. Diverticulosis without diverticulitis. Reported By:
== END ==
LOC: RAD 09:43
PROVIDERS: ATTEND Specialist
DX: R19.06 Epigastric swelling, mass or lump (principal); M62.08 Separation of muscle (nontraumatic), other site
CPT/HCPCS: 74177; A4222

== ENCOUNTER → 2016-11-09 | Outpatient (CLI) | payer OTHER, MEDICARE ==
--- NOTE | 2016-11-09 17:25 | VAS ---
HISTORY: Left lower extremity pain, ecchymosis Study: Left lower extremity venous Doppler ultrasound Comparison: None TECHNIQUE: Multiple flores scale and color flow Doppler images of the deep venous system were obtained of the left lower extremity. FINDINGS: The deep venous system of the left lower extremity was evaluated from the level of the common femoral vein through the popliteal vein. Normal color flow and augmentation can be observed. In addition, normal compression is seen throughout the deep venous system. IMPRESSION: 1. Negative for left lower extremity DVT. Reported By:
== END ==
LOC: RAD 14:04
PROVIDERS: ATTEND Internal Medicine
DX: R60.1 Generalized edema (principal); M79.605 Pain in left leg
CPT/HCPCS: 93971

== ENCOUNTER → 2016-12-13 | Outpatient (CLI) | payer OTHER, MEDICARE ==
[2016-12-13 07:25] LABS: BLOOD UREA NITROGEN 28 mg/dL (7-18); CALCIUM 9.7 mg/dL (8.5-10.1); CARBON DIOXIDE 28.7 mmol/L (21-32); CHLORIDE 104 mmol/L (98-107); CREATININE 1.66 mg/dL (0.70-1.30); SODIUM 141 mmol/L (136-145); eGFR BLACK RACES 53 (>60); eGFR NON BLACK RACES 43 (>60)
== END ==
LOC: LAB 07:04
PROVIDERS: ATTEND Specialist
DX: Z79.899 Other long term (current) drug therapy (principal)
CPT/HCPCS: 36415; 80048

== ENCOUNTER → 2016-12-26 | Outpatient (CLI) | payer OTHER, MEDICARE ==
[2016-12-26 12:12] LABS: BLOOD UREA NITROGEN 26 mg/dL (7-18); CALCIUM 8.5 mg/dL (8.5-10.1); CARBON DIOXIDE 27.6 mmol/L (21-32); CHLORIDE 103 mmol/L (98-107); CREATININE 1.37 mg/dL (0.70-1.30); SODIUM 142 mmol/L (136-145); eGFR BLACK RACES > 60 (>60); eGFR NON BLACK RACES 54 (>60)
== END ==
LOC: LAB 11:26
PROVIDERS: ATTEND Specialist
DX: Z79.899 Other long term (current) drug therapy (principal); R60.0 Localized edema
CPT/HCPCS: 36415; 80048

== ENCOUNTER → 2017-01-08 | Outpatient (CLI) | payer OTHER, MEDICARE ==
[2017-01-08 15:38] LABS: CALCIUM 9.3 mg/dL (8.5-10.1); CARBON DIOXIDE 30.5 mmol/L (21-32); CREATININE 1.93 mg/dL (0.70-1.30)
== END | disposition home or self-care (01) ==
LOC: LAB 15:12
PROVIDERS: ATTEND Specialist
DX: R35.8 Other polyuria (principal)
CPT/HCPCS: 36415; 80048

== ENCOUNTER → 2017-06-20 | Outpatient (CLI) | payer OTHER, MEDICARE | LOC: LAB 15:05 | PROVIDERS: ATTEND Internal Medicine Gastroenterology | DX: Z86.010 Personal history of colon polyps (principal) | CPT/HCPCS: 82274 ==

== ENCOUNTER 2017-08-30 07:57 | Observation (INO) ==
[2017-08-30] MEDS ORDERED: LASIX IVP ONE (08:36)
[2017-08-30] MEDS ORDERED: TYLENOL 325 MG TAB PO PRN (08:36)
[2017-08-30] MEDS ORDERED: NS 500 ML IV 500 ML IV ONE ×3 (08:36→11:26)
[2017-08-30] MEDS ORDERED: BENADRYL INJ 50 MG VIAL IVP PRN (08:36)
[2017-08-30] MEDS: NS 1000 ML 1,000 ML IV SCH ×2 (09:49→22:18)
[2017-08-30 09:53] LABS: BASOPHILS % (AUTO) 1.1 % (0.2-1.0); EOSINOPHILS # (AUTO) 0.2 x10^3/uL (0.0-0.2); EOSINOPHILS % (AUTO) 5.3 % (0.9-2.9); HEMATOCRIT 25.8 % (42.0-54.0); HEMOGLOBIN 8.7 g/dL (13.5-18.0); LYMPHOCYTES % (AUTO) 25.6 % (21.0-51.0); MEAN CORPUSCULAR HGB CONC 33.6 g/dL (33.0-35.0); MEAN CORPUSCULAR VOLUME 89.4 fL (80.0-100.0); MEAN PLATELET VOLUME 8.5 fL (7.4-11.0); MONOCYTES # (AUTO) 0.4 x10^3/uL (0.3-0.8); MONOCYTES % (AUTO) 9.5 % (0.0-13.0); NEUTROPHILS # (AUTO) 2.2 x10^3/uL (2.2-4.8); NEUTROPHILS % (AUTO) 58.5 % (42.0-75.0); PLATELET COUNT 175 X10^3/uL (150.0-450.0); RED BLOOD COUNT 2.88 X10^6/uL (4.7-6.0); WHITE BLOOD COUNT 3.7 X10^3/uL (3.6-10.0)
[2017-08-30] MEDS: PEPCID 20 MG IV PREMIX* 20 MG/50 ML BAG IV SCH ×2 (10:38→20:42)
[2017-08-30] MEDS: PROTONIX INJ 40 MG VIAL IVP SCH ×2 (10:38→20:42)
[2017-08-30 10:55] VITALS: BMI 37.1
[2017-08-30] MEDS ORDERED: LASIX IVP NR (11:00)
[2017-08-30 11:23] LABS: ALBUMIN 3.1 g/dL (3.4-5.0); CALCIUM 8.6 mg/dL (8.5-10.1); CARBON DIOXIDE 25.6 mmol/L (21-32); COR CA(FOR HYPOALB) 9.3 mg/dL (8.5-10.1); CREATININE 2.69 mg/dL (0.70-1.30); TOTAL PROTEIN 6.4 g/dL (6.4-8.2)
[2017-08-30] MEDS ORDERED: FLONASE NASAL SPRAY ENOSTRIL PRN (13:42)
[2017-08-30] MEDS ORDERED: NITROSTAT SL PRN ×2 (13:42→15:00)
[2017-08-30] MEDS ORDERED: NORCO 7.5/325 MG TAB PO PRN (13:42)
[2017-08-30] MEDS ORDERED: POTASSIUM CHLORIDE PO SCH (13:45)
[2017-08-30] MEDS ORDERED: SPIRONOLACTONE PO SCH (13:45)
[2017-08-30] MEDS ORDERED: GLUCOSAMINE CHONDROITIN PO SCH (13:45)
[2017-08-30] MEDS ORDERED: ZAROXOYLN PO SCH (13:45)
[2017-08-30] MEDS: ZESTRIL TAB 5 MG PO SCH (13:56)
[2017-08-30] MEDS: CORDARONE TAB 200 MG PO SCH (13:56)
[2017-08-30] MEDS: MONOKET or IMDUR PO SCH (13:56)
[2017-08-30] MEDS: RANEXA PO SCH ×2 (13:57→20:53)
[2017-08-30] MEDS ORDERED: SYNTHROID 175 mcg TAB PO SCH (14:00)
[2017-08-30] MEDS ORDERED: PRAMIPEXOLE PO SCH (14:00)
[2017-08-30] MEDS: DUONEB 0.5 MG/3 MG NEB PRN (16:16)
[2017-08-30] MEDS: TAB-A-VITE PO SCH (20:39)
[2017-08-30] MEDS: TRICOR TAB 160 MG PO SCH (20:40)
[2017-08-30] MEDS: VITAMIN C PO SCH (20:40)
[2017-08-30] MEDS: NEURONTIN CAP 100 MG PO SCH (20:40)
[2017-08-30] MEDS: NORMODYNE TAB 200 MG PO SCH (20:41)
[2017-08-30] MEDS: CARDURA PO SCH (20:41)
[2017-08-30] MEDS: LIPITOR TAB 40 MG PO SCH (20:42)
[2017-08-30] MEDS: CLARITIN PO SCH (20:42)
[2017-08-30] MEDS: OSCAL+D or CALTRATE+D PO SCH (20:42)
[2017-08-30] MEDS: MAG-OX TAB PO SCH (20:42)
[2017-08-30] MEDS ORDERED: ANTIVERT TAB 25 MG PO SCH (21:00)
[2017-08-30] MEDS ORDERED: MAGNESIUM PO SCH (21:00)
[2017-08-30] MEDS ORDERED: PATIENT'S HOME MEDICATION (Folic Acid [Folic Acid] 1 TAB) PO SCH (21:00)
[2017-08-30] MEDS ORDERED: GARLIC PO SCH (21:00)
[2017-08-30] MEDS ORDERED: DOXAZOSIN 4 MG PO SCH (21:00)
[2017-08-30] MEDS ORDERED: CALCIUM CARBONATE VITAMIN D3 PO SCH (21:00)
[2017-08-30] MEDS ORDERED: ASCORBIC ACID PO SCH (21:00)
[2017-08-30] MEDS ORDERED: PATIENT'S HOME MEDICATION (Fenofibrate [Fenofibrate 160 Mg] 160 MG) PO SCH (21:00)
[2017-08-30] MEDS ORDERED: [UNRECOGNIZED DRUG - OTHER] PO SCH (21:00)
[2017-08-30] MEDS: MIRAPEX TAB 0.25 MG PO SCH (22:18)
[2017-08-31] MEDS ORDERED: MIRAPEX TAB 0.25 MG ONE ×2 (05:59→13:46)
[2017-08-31] MEDS ORDERED: SYNTHROID 175 mcg TAB ONE (06:03)
[2017-08-31] MEDS: MIRAPEX TAB 0.25 MG PO SCH ×3 (06:12→21:06)
[2017-08-31 06:45] LABS: BASOPHILS # (AUTO) 0.1 X10^3/uL (0.0-0.1); BASOPHILS % (AUTO) 1.1 % (0.2-1.0); EOSINOPHILS # (AUTO) 0.3 x10^3/uL (0.0-0.2); HEMATOCRIT 29.3 % (42.0-54.0); HEMOGLOBIN 9.8 g/dL (13.5-18.0); LYMPHOCYTES # (AUTO) 1.3 X10^3/uL (1.3-2.9); LYMPHOCYTES % (AUTO) 29.7 % (21.0-51.0); MEAN CORPUSCULAR HEMOGLOBIN 29.3 pg (27.0-34.0); MEAN CORPUSCULAR HGB CONC 33.5 g/dL (33.0-35.0); MEAN CORPUSCULAR VOLUME 87.4 fL (80.0-100.0); MEAN PLATELET VOLUME 8.5 fL (7.4-11.0); MONOCYTES # (AUTO) 0.4 x10^3/uL (0.3-0.8); MONOCYTES % (AUTO) 10.1 % (0.0-13.0); NEUTROPHILS # (AUTO) 2.3 x10^3/uL (2.2-4.8); NEUTROPHILS % (AUTO) 52.1 % (42.0-75.0); PLATELET COUNT 165 X10^3/uL (150.0-450.0); RED BLOOD COUNT 3.36 X10^6/uL (4.7-6.0); RED CELL DISTRIBUTION WIDTH 17.1 % (11.6-16.5); WHITE BLOOD COUNT 4.4 X10^3/uL (3.6-10.0)
[2017-08-31] MEDS: SYNTHROID 175 mcg TAB PO SCH (07:08)
[2017-08-31 07:19] LABS: ALANINE AMINOTRANSFERASE 21 Units/L (12-78); ALBUMIN 2.9 g/dL (3.4-5.0); ALKALINE PHOSPHATASE 43 Units/L (46-116); ASPARTATE AMINO TRANSFERASE 22 Units/L (15-37); BLOOD UREA NITROGEN 44 mg/dL (7-18); CALCIUM 8.5 mg/dL (8.5-10.1); CARBON DIOXIDE 26.4 mmol/L (21-32); CHLORIDE 106 mmol/L (98-107); COR CA(FOR HYPOALB) 9.4 mg/dL (8.5-10.1); CREATININE 2.14 mg/dL (0.70-1.30); SODIUM 139 mmol/L (136-145); TOTAL PROTEIN 6.1 g/dL (6.4-8.2); eGFR NON BLACK RACES 32 (>60)
[2017-08-31] MEDS ORDERED: ISOSORBIDE DINITRATE PO ONE (07:39)
[2017-08-31] MEDS ORDERED: ANTIVERT TAB 25 MG ONE (07:39)
[2017-08-31] MEDS ORDERED: ZESTRIL TAB 5 MG ONE (07:39)
[2017-08-31] MEDS ORDERED: PROTONIX INJ 40 MG VIAL ONE (07:39)
[2017-08-31] MEDS ORDERED: K-DUR TAB 20 MEQ PO ONE (07:39)
[2017-08-31] MEDS ORDERED: ALDACTONE TAB 25 MG ONE ×2 (07:40→07:52)
[2017-08-31] MEDS ORDERED: NS 1000 ML 1,000 ML ONE (07:40)
[2017-08-31] MEDS ORDERED: CORDARONE TAB 200 MG ONE (07:40)
[2017-08-31] MEDS ORDERED: PEPCID 20 MG IV PREMIX* 20 MG/50 ML BAG IV ONE (07:40)
[2017-08-31] MEDS ORDERED: RANEXA PO ONE (07:44)
[2017-08-31] MEDS: PROTONIX INJ 40 MG VIAL IVP SCH ×2 (08:00→20:58)
[2017-08-31] MEDS: PEPCID 20 MG IV PREMIX* 20 MG/50 ML BAG IV SCH ×2 (08:00→20:57)
[2017-08-31] MEDS: ZESTRIL TAB 5 MG PO SCH (08:00)
[2017-08-31] MEDS: NS 1000 ML 1,000 ML IV SCH ×2 (08:00→09:49)
[2017-08-31] MEDS: CORDARONE TAB 200 MG PO SCH (08:00)
[2017-08-31] MEDS: RANEXA PO SCH ×2 (08:00→20:58)
[2017-08-31] MEDS: MONOKET or IMDUR PO SCH (08:01)
[2017-08-31] MEDS: K-DUR TAB 20 MEQ PO SCH (08:01)
[2017-08-31] MEDS: ALDACTONE TAB 25 MG PO SCH (08:01)
[2017-08-31] MEDS ORDERED: LASIX IVP ONE (08:49)
[2017-08-31] MEDS: LASIX IVP SCH ×2 (08:56→20:56)
[2017-08-31] MEDS ORDERED: DUONEB 0.5 MG/3 MG ONE (09:34)
[2017-08-31] MEDS: DUONEB 0.5 MG/3 MG NEB PRN (09:36)
[2017-08-31] MEDS: CARDURA PO SCH (20:55)
[2017-08-31] MEDS: CLARITIN PO SCH (20:56)
[2017-08-31] MEDS: NORMODYNE TAB 200 MG PO SCH (20:56)
[2017-08-31] MEDS: LIPITOR TAB 40 MG PO SCH (20:56)
[2017-08-31] MEDS: NEURONTIN CAP 100 MG PO SCH (20:56)
[2017-08-31] MEDS: MAG-OX TAB PO SCH (20:56)
[2017-08-31] MEDS: OSCAL+D or CALTRATE+D PO SCH (20:57)
[2017-08-31] MEDS: TRICOR TAB 160 MG PO SCH (20:58)
[2017-08-31] MEDS: TAB-A-VITE PO SCH (20:58)
[2017-08-31] MEDS: VITAMIN C PO SCH (20:58)
[2017-08-31] MEDS ORDERED: ANTIVERT TAB 25 MG PO SCH (21:00)
[2017-09-01] MEDS: NS 1000 ML 1,000 ML IV SCH (01:43)
[2017-09-01] MEDS: MIRAPEX TAB 0.25 MG PO SCH (05:53)
[2017-09-01 06:00] LABS: BASOPHILS # (AUTO) 0.1 X10^3/uL (0.0-0.1); BASOPHILS % (AUTO) 1.2 % (0.2-1.0); EOSINOPHILS # (AUTO) 0.3 x10^3/uL (0.0-0.2); EOSINOPHILS % (AUTO) 5.4 % (0.9-2.9); HEMATOCRIT 32.9 % (42.0-54.0); HEMOGLOBIN 10.9 g/dL (13.5-18.0); LYMPHOCYTES # (AUTO) 1.3 X10^3/uL (1.3-2.9); LYMPHOCYTES % (AUTO) 25.8 % (21.0-51.0); MEAN CORPUSCULAR HEMOGLOBIN 29.1 pg (27.0-34.0); MEAN CORPUSCULAR HGB CONC 33.2 g/dL (33.0-35.0); MEAN CORPUSCULAR VOLUME 87.8 fL (80.0-100.0); MEAN PLATELET VOLUME 8.3 fL (7.4-11.0); MONOCYTES # (AUTO) 0.6 x10^3/uL (0.3-0.8); MONOCYTES % (AUTO) 11.8 % (0.0-13.0); NEUTROPHILS # (AUTO) 2.9 x10^3/uL (2.2-4.8); NEUTROPHILS % (AUTO) 55.8 % (42.0-75.0); PLATELET COUNT 175 X10^3/uL (150.0-450.0); RED BLOOD COUNT 3.74 X10^6/uL (4.7-6.0); RED CELL DISTRIBUTION WIDTH 17.5 % (11.6-16.5); WHITE BLOOD COUNT 5.2 X10^3/uL (3.6-10.0)
[2017-09-01 06:18] LABS: ALANINE AMINOTRANSFERASE 22 Units/L (12-78); ALBUMIN 3.3 g/dL (3.4-5.0); ALKALINE PHOSPHATASE 46 Units/L (46-116); ASPARTATE AMINO TRANSFERASE 24 Units/L (15-37); BLOOD UREA NITROGEN 42 mg/dL (7-18); CHLORIDE 105 mmol/L (98-107); COR CA(FOR HYPOALB) 9.6 mg/dL (8.5-10.1); CREATININE 2.48 mg/dL (0.70-1.30); SODIUM 141 mmol/L (136-145); TOTAL PROTEIN 6.7 g/dL (6.4-8.2); eGFR NON BLACK RACES 27 (>60)
[2017-09-01] MEDS ORDERED: DUONEB 0.5 MG/3 MG ONE (08:39)
[2017-09-01] MEDS: DUONEB 0.5 MG/3 MG NEB PRN (08:45)
[2017-09-01] MEDS: ALDACTONE TAB 25 MG PO SCH (09:09)
[2017-09-01] MEDS: MONOKET or IMDUR PO SCH (09:10)
[2017-09-01] MEDS: CORDARONE TAB 200 MG PO SCH (09:11)
[2017-09-01] MEDS: ZESTRIL TAB 5 MG PO SCH (09:11)
[2017-09-01] MEDS: SYNTHROID 175 mcg TAB PO SCH (09:11)
[2017-09-01] MEDS: K-DUR TAB 20 MEQ PO SCH (09:12)
[2017-09-01] MEDS: RANEXA PO SCH (09:12)
[2017-09-01] MEDS: PROTONIX INJ 40 MG VIAL IVP SCH (09:12)
[2017-09-01] MEDS: PEPCID 20 MG IV PREMIX* 20 MG/50 ML BAG IV SCH (09:12)
[2017-09-01 12:12] VITALS: BP 114/66
--- NOTE | 2017-09-26 23:39 | DR.CARTERD ---
- Discharge Summary for: Discharge Summary for Date of:: 09/01/17 - Admission Date Date of Admission: 08/30/17 - Admission Diagnoses Admission Diagnosis: 1. Symptomatic Anemia 2. Shortness of breath 3. Generalized weakness - Discharge Date Discharge Date: 09/01/17 - Discharge Diagnoses Discharge Diagnosis: 1. Symptomatic Anemia 2. Shortness of breath 3. Generalized weakness - Hospital Course Hospital Course: Mr. Huynh presented to the [facility] as a direct admit from our office with anemia. Symptoms included generalized weakness and shortness of breath. On arrival labs were obtained and revealed a hemoglobin of 8.7, BUN 51, Creatinine 2.69, GFR 25. Patient was typed and screened and 2 unit of packed red blood cells were transfused slowly due to history of congestive heart failure. Lasix was administered between units. A stool for occult blood was collected and the result was positive. We continued to monitor H&H. Medical HX: Bacterial Meningitis, CAD, CHF, IN, Valvular Heart Disease, HTN, Bronchitis, Pneumonia, Sleep Apnea, GERD, Arthritis, Osteoporosis, Back Pain, Hypothyroidism , Angioplasty/Stents, Cholecystectomy, Joint Replacement. Abnormal Labs: RBC 2.88, HGB 8.7, HCT 25.8, BUN 51, Creatinine 2.69, GFR 25, Glucose 112, Albumin 3.1, A/G ratio 0.9, Vitamin B-12 658, STL Occult Blood Positive A. On day two, patient's hemoglobin was 9.8. Patient continued with weakness and shortness of breath but reported that it was improving. We continued to monitor H&H. On day three, patient denied shortness of breath or weakness. He reported that he felt better. Hemoglobin was 10.9. No acute distress was noted. Lungs clear to auscultation. Cintia signs stable. Labs wnl. We planned for discharge. Instructions for medications and follow up were discussed with patient and family, both voiced understanding. Patient discharged home in stable condition with family. - Discharge Medications Discharge Medications: Home Medication List acetaminophen [Tylenol Extra Strength] 2 tab PO Q6H PRN 08/30/17 [History] ascorbic acid (vitamin C) [Vitamin C] 1 tab PO HS 08/30/17 [History] calcium carbonate-vitamin D3 [Calcium 600 with Vitamin D3] 1 tab PO HS 08/30/17 [History] fluticasone [Flonase Allergy Relief] 1 inh INTRANASAL BID PRN 08/30/17 [History] folic acid 1 tab PO HS 08/30/17 [History] furosemide [Lasix] 1 tab PO DAILY 08/30/17 [History] garlic [garlic oil] 1 cap PO HS 08/30/17 [History] glucosamine-chondroitin [Osteo Bi-Flex] 1 tab PO DAILY 08/30/17 [History] hydrocodone-acetaminophen [Jermyn] 1 tab PO Q4H PRN 08/30/17 [History] ipratropium-albuterol 1 ea NEB QID PRN 08/30/17 [History] magnesium 2 tab PO HS 08/30/17 [History] meclizine 1 tab PO BID 08/30/17 [History] metolazone See Label Instructions .ROUTE .COMPLEX 08/30/17 [History] multivitamin [One Daily Multivitamin] 1 tab PO HS 08/30/17 [History] pramipexole [Mirapex] 1 tab PO TID 08/30/17 [History] spironolactone [Aldactone] 1 tab PO DAILY 08/30/17 [History] Prescriptions: Home medications Fenofibrate [Fenofibrate 160 mg] 160 mg PO HS 07/01/16 amiodarone 200 mg PO DAILY 07/01/16 aspirin 325 mg PO DAILY 07/01/16 atorvastatin 40 mg PO HS 07/01/16 clopidogrel [Plavix] 75 mg PO DAILY 07/01/16 doxazosin 4 mg PO HS 07/01/16 famotidine 20 mg PO BID 07/01/16 gabapentin 100 mg PO HS 07/01/16 isosorbide mononitrate 20 mg PO DAILY 07/01/16 labetalol 200 mg PO HS 07/01/16 levothyroxine 175 mcg PO DAILY 07/01/16 lisinopril 5 mg PO DAILY 07/01/16 loratadine [Non-Drowsy Allergy] 10 mg PO HS 07/01/16 nitroglycerin [Nitrostat] 0.4 mg SUBLINGUAL PRN PRN 07/01/16 potassium chloride 0.5 tab PO DAILY 07/01/16 ranolazine [Ranexa] 500 mg PO BID 07/01/16 warfarin 5 mg PO DAILY 07/01/16 - Discharge Disposition Discharge Disposition: Patient is to follow up in our office in one week.
--- NOTE | 2017-11-21 10:54 | DR.H&P ---
H&P - History & Physical for Day of: H&P Date: 08/30/17 - Chief Complaint Chief Complaint: anemia, weakness - History of Present Illness History of Present Illness: is a 72 year old patient of ours who is a direct admission from our office for anemia and generalized weakness. He is three weeks status post right knee replacement. Medical HX includes: Bacterial Meningitis, CAD, CHF, PA, Valvular Heart Disease, HTN, Bronchitis, Pneumonia, Sleep Apnea, GERD, Arthritis, Osteoporosis, Back Pain, Hypothyroidism , Angioplasty/Stents, Cholecystectomy, Joint Replacement. On arrival to the hospital, vitals were 98.1, 66, 20, 99% RA, 166/55. Labs were obtained. Abnormal lab values include the following: Abnormal Labs: RBC 2.88, HGB 8.7, HCT 25.8, BUN 51, Creatinine 2.69, GFR (AA) 30, GFR (NON) 25, Glucose 112, Albumin 3.1, A/G ratio 0.9, Vitamin B-12 658, STL Occult Blood Positive A. Patient was typed and screened for 2 unit of packed red blood cells to transfuse slowly due to congestive heart failure. Lasix to be administered between units. We will continue to monitor patient H&H following transfusion and repeat labs in the am. - Past Medical History Past Medical History: Arthritis, CHF, Coronary Artery Disease, Diabetes, Dyslipidemia, GERD, Hypertension, Hypothyroidism, PA, Sleep Apnea Additional Medical History: Cataracts, Bacterial Meningitis 2010, Bronchitis, Pneumonia, Osteoporosis, Back Pain, Thromboembolism, Diverticulosis, Migraine - Past Surgical History Surgical History: Angioplasty/Stents, Cholecystectomy, Joint Replacement, Ortho Surgery, Other Additional Surgical History: Cardiac Cath 12/2015, Left TKA, Arthroscopic Left KNee, Right and Left Rotator Cuff Repair, Amputation Right Pointer Finger (Meat Saw), Inguinal Hernia Repair, Umbilical Hernia Repair, Breast Biopsy (Benign) - Family History Family Medical History: Diabetes Mellitus, PA, Hypertension - Social History Does patient currently use any type of tobacco product: No Have you used tobacco products in the last 12 months: No Type of Tobacco Use: None Does any household member use tobacco: No Alcohol Use: None Drug Use: Prescription Drugs - Medications Home Medications: Penicillins Allergy (Verified 08/30/17 10:25) CONTINUE taking the following medications acetaminophen [Tylenol Extra Strength] 2 tab PO Q6H PRN 08/30/17 [History] ascorbic acid (vitamin C) [Vitamin C] 1 tab PO HS 08/30/17 [History] calcium carbonate-vitamin D3 [Calcium 600 with Vitamin D3] 1 tab PO HS 08/30/17 [History] fluticasone [Flonase Allergy Relief] 1 inh INTRANASAL BID PRN 08/30/17 [History] folic acid 1 tab PO HS 08/30/17 [History] furosemide [Lasix] 1 tab PO DAILY 08/30/17 [History] garlic [garlic oil] 1 cap PO HS 08/30/17 [History] glucosamine-chondroitin [Osteo Bi-Flex] 1 tab PO DAILY 08/30/17 [History] hydrocodone-acetaminophen [[place]] 1 tab PO Q4H PRN 08/30/17 [History] ipratropium-albuterol 1 ea NEB QID PRN 08/30/17 [History] magnesium 2 tab PO HS 08/30/17 [History] meclizine 1 tab PO BID 08/30/17 [History] metolazone See Label Instructions .ROUTE .COMPLEX 08/30/17 [History] multivitamin [One Daily Multivitamin] 1 tab PO HS 08/30/17 [History] pramipexole [Mirapex] 1 tab PO TID 08/30/17 [History] spironolactone [Aldactone] 1 tab PO DAILY 08/30/17 [History] - Review of Systems Constitutional: Weakness Eyes: No Symptoms Reported ENT: No Symptoms Reported Respiratory: Shortness of Breath Cardiovascular: No Symptoms Reported Gastrointestinal: Abdominal Pain Genitourinary: No Symptoms Reported Musculoskeletal: No Symptoms Reported Skin: No Symptoms Reported Neurological: Weakness - Physical Exam Vital Signs: Temperature 98.0 F Pulse Rate [Left Radial] 59 Pulse Rate 68 Respiratory Rate 22 Blood Pressure [Left Arm] 114/66 Blood Pressure [Right Arm] 128/78 Blood Pressure 135/61 O2 Sat by Pulse Oximetry 95 Oriented: Normal Eyes: Normal Ear: Normal Nose: Normal Throat: Normal Respiratory: Diminished Throughout Cardiovascular: Normal : Normal Auscultation: Bowel Sounds: Normal Palpation: Normal Tenderness: Diffuse, Mild. negative: Rebound, Guarding, Rigidity Skin: Normal Musculoskeletal: Normal Psychiatric: Normal Mood Description: Calm Affect: Normal Speech Pattern: Clear - Assessment/Plan (1) Anemia Qualifiers: Anemia type: iron deficiency Iron deficiency anemia type: chronic blood loss Qualified Code(s): D50.0 - Iron deficiency anemia secondary to blood loss (chronic) Status: Acute Plan: transfuse 2 liters PRBC, continue to monitor (2) Generalized weakness Status: Acute (3) History of CHF (congestive heart failure) Status: Chronic - Allergies Allergies/Adverse Reactions: Allergies Allergy/AdvReac Type Severity Reaction Status Date / Time Penicillins Allergy Verified 08/30/17 10:25
--- NOTE | 2017-11-21 11:07 | PCM.PROG ---
Progress Note - Progress Note for Day of Date of Exam: 08/31/17 - Subjective Subjective: WAS ADMITTED FOR ANEMIA AND GENERALIZED WEAKNESS. HE WAS TRANSFUSED WITH TWO UNITS OF PACKED RED BLOOD CELLS YESTERDAY. TODAY, HE IS ALERT AND ORIENTED, LYING IN BED ON MORNING ROUNDS. HE CONTINUES TO REPORT WEAKNESS, BUT EXPRESSES IMPROVEMENT SINCE YESTERDAY. HE ALSO REPORTS SHORTNESS OF BREATH THIS MORNING. ON EXAMINATION, HEART IS REGULAR IN RATE AND RHYTHM. BILATERAL LUNGS ARE NOTED WITH DIMINISHED LUNG SOUNDS THROUGHOUT. ABDOMEN IS ROUNDS, SOFT, AND NON-TENDER WITH NORMAL BOWEL SOUNDS NOTED IN ALL QUADRANTS. RIGHT KNEE NOTED WITH STERI-STRIPS. NO SIGNS OR SX INFECTION NOTED TO SITE. HIS VITALS [facility] ARE 97.2-59-27-99%-136/62. LABS WERE OBTAINED. ABNORMAL LAB VALUES INCLUDE THE FOLLOWING: RBC 3.36, HGB 9.8, HCT 29.3, INR 2.06, BUN 44, CREATININE 2.4, ALK PHOS 43, TOTAL PROTEIN 6.1, ALBUMIN 2.9. TODAY, WE WILL ADMINISTER LASIX 40MG IV Q12H. OTHERWISE, WE WILL CONTINUE WITH CURRENT PLAN OF CARE. WE PLAN TO FOLLOW UP WITH AM LABS AND CONTINUE TO MONITOR PATIENT. - Past Medical Family Social History Past Med/Fam/Surg Hx: No changes since H&P Allergies: Allergies Penicillins Allergy (Verified 08/30/17 10:25) - Review of Systems ROS: No change since H&P - Vital Signs and I&O's Vital Signs: Temperature 98.0 F Pulse Rate [Left Radial] 59 Pulse Rate 68 Respiratory Rate 22 Blood Pressure [Left Arm] 114/66 Blood Pressure [Right Arm] 128/78 Blood Pressure 135/61 O2 Sat by Pulse Oximetry 95 - Physical Exam Oriented: Normal Eyes: Normal Ear: Normal Nose: Normal Throat: Normal Respiratory: Diminished Cardiovascular: Normal : Normal Auscultation: Bowel Sounds: Normal Palpation: Normal Tenderness: Diffuse, Mild. negative: Rebound, Guarding, Rigidity Skin: Normal Musculoskeletal: Normal Psychiatric: Normal Mood Description: Calm Affect: Normal Speech Pattern: Clear - Laboratory and Diagnostics Result Diagrams: 09/01/17 05:48 09/01/17 05:48 Labs: Laboratory WBC 5.2 X10^3/uL (3.6-10.0) 09/01/17 05:48 RBC 3.74 X10^6/uL (4.7-6.0) L 09/01/17 05:48 Hgb 10.9 g/dL (13.5-18.0) L 09/01/17 05:48 Hct 32.9 % (42.0-54.0) L 09/01/17 05:48 MCV 87.8 fL (80.0-100.0) 09/01/17 05:48 MCH 29.1 pg (27.0-34.0) 09/01/17 05:48 MCHC 33.2 g/dL (33.0-35.0) 09/01/17 05:48 RDW 17.5 % (11.6-16.5) H 09/01/17 05:48 Plt Count 175 X10^3/uL (150.0-450.0) 09/01/17 05:48 MPV 8.3 fL (7.4-11.0) 09/01/17 05:48 Neut % (Auto) 55.8 % (42.0-75.0) 09/01/17 05:48 Lymph % (Auto) 25.8 % (21.0-51.0) 09/01/17 05:48 [place] % (Auto) 11.8 % (0.0-13.0) 09/01/17 05:48 Eos % (Auto) 5.4 % (0.9-2.9) H 09/01/17 05:48 Baso % (Auto) 1.2 % (0.2-1.0) H 09/01/17 05:48 Neut # (Auto) 2.9 x10^3/uL (2.2-4.8) 09/01/17 05:48 Lymph # (Auto) 1.3 X10^3/uL (1.3-2.9) 09/01/17 05:48 [place] # (Auto) 0.6 x10^3/uL (0.3-0.8) 09/01/17 05:48 Eos # (Auto) 0.3 x10^3/uL (0.0-0.2) H 09/01/17 05:48 Baso # (Auto) 0.1 X10^3/uL (0.0-0.1) 09/01/17 05:48 Absolute Nucleated RBC 0.1 /100WBC 09/01/17 05:48 Smear Path Review See note 08/30/17 08:50 Absolute Retic 0.0809 10^6/uL 08/30/17 08:50 Percent Retic 2.80 % (0.8-2.2) H 08/30/17 08:50 INR Target Range - 09/01/17 05:48 INR 1.68 (0.8-1.3) H 09/01/17 05:48 Sodium 141 mmol/L (136-145) 09/01/17 05:48 Corrected Sodium TNP 09/01/17 05:48 Potassium 4.3 mmol/L (3.5-5.1) 09/01/17 05:48 Chloride 105 mmol/L (98-107) 09/01/17 05:48 Carbon Dioxide 29.0 mmol/L (21-32) 09/01/17 05:48 BUN 42 mg/dL (7-18) H 09/01/17 05:48 Creatinine 2.48 mg/dL (0.70-1.30) H 09/01/17 05:48 Est GFR (MDRD) Af Amer 33 (>60) L 09/01/17 05:48 Est GFR (MDRD) Non-Af 27 (>60) L 09/01/17 05:48 Glucose 93 mg/dL (65-99) 09/01/17 05:48 POC Glucose (mg/dL) 92 mg/dL (65-99) 09/01/17 05:46 Calcium 9.0 mg/dL (8.5-10.1) 09/01/17 05:48 Corrected Calcium 9.6 mg/dL (8.5-10.1) 09/01/17 05:48 Iron 73 ug/dL (50-175) 08/30/17 08:50 TIBC 379 ug/dL (250-450) 08/30/17 08:50 Transferrin 309 mg/dL (202-364) 08/30/17 08:50 Ferritin 231 ng/mL (26-388) 08/30/17 08:50 Total Bilirubin 0.60 mg/dL (0.2-1.0) 09/01/17 05:48 AST 24 Units/L (15-37) 09/01/17 05:48 ALT 22 Units/L (12-78) 09/01/17 05:48 Alkaline Phosphatase 46 Units/L (46-116) 09/01/17 05:48 Total Protein 6.7 g/dL (6.4-8.2) 09/01/17 05:48 Albumin 3.3 g/dL (3.4-5.0) L 09/01/17 05:48 Globulin 3.4 g/dL (2.5-4.5) 09/01/17 05:48 Albumin/Globulin Ratio 1.0 Ratio (1.1-2.1) L 09/01/17 05:48 Vitamin B12 1658 pg/mL (193-986) H 08/30/17 08:50 Folate 19.8 ng/mL (>8.6) 08/30/17 08:50 Stool Description 100g brn/green semif 08/30/17 10:25 Stl Occult Blood (IFOB) Positive (NEGATIVE) A 08/30/17 10:25 Blood Type O POSITIVE 08/30/17 08:50 Antibody Screen Negative 08/30/17 08:50 Crossmatch See Detail 08/30/17 08:50 - Plan (1) Anemia Status: Acute Qualifiers: Anemia type: iron deficiency Iron deficiency anemia type: chronic blood loss Qualified Code(s): D50.0 - Iron deficiency anemia secondary to blood loss (chronic) Plan: MONITOR H&H (2) Generalized weakness Status: Acute (3) History of CHF (congestive heart failure) Status: Chronic Plan: LASIX 40MG IV Q12H, CONTINUE TO MONITOR
== END 2017-09-01 12:35 | disposition home or self-care (01) ==
LOC: ICU → MED/SURG 08-31 14:25
PROVIDERS: ADMIT Internal Medicine; ATTEND Internal Medicine
DX: R53.1 Weakness; R06.02 Shortness of breath; E11.9 Type 2 diabetes mellitus without complications; I10 Essential (primary) hypertension; Z96.659 Presence of unspecified artificial knee joint; D64.9 Anemia, unspecified; R79.1 Abnormal coagulation profile
CPT/HCPCS: 36415; 36430; 80053; 82270; 82607; 82728; 82746; 83540; 83550; 84466; 85025; 85045; 85060; 85610; 86850; 86900; 86901; 86922; 94640; A4222; C9113; P9016; S0028; G0378; J1200; J1940; J3490; J7030; J7040; J7620

== ENCOUNTER 2017-12-17 11:38 | Inpatient (IN) ==
[2017-12-17] MEDS: NS 1000 ML 1,000 ML IV SCH (14:18)
[2017-12-17] MEDS: PROTONIX INJ 40 MG VIAL IVP SCH (14:19)
[2017-12-17 14:24] LABS: BASOPHILS % (AUTO) 1.4 % (0.2-1.0); EOSINOPHILS # (AUTO) 0.2 x10^3/uL (0.0-0.2); EOSINOPHILS % (AUTO) 4.5 % (0.9-2.9); HEMATOCRIT 27.8 % (42.0-54.0); HEMOGLOBIN 9.3 g/dL (13.5-18.0); LYMPHOCYTES # (AUTO) 0.8 X10^3/uL (1.3-2.9); MEAN CORPUSCULAR HEMOGLOBIN 28.9 pg (27.0-34.0); MEAN CORPUSCULAR HGB CONC 33.4 g/dL (33.0-35.0); MEAN CORPUSCULAR VOLUME 86.4 fL (80.0-100.0); MEAN PLATELET VOLUME 8.3 fL (7.4-11.0); MONOCYTES # (AUTO) 0.3 x10^3/uL (0.3-0.8); MONOCYTES % (AUTO) 9.6 % (0.0-13.0); NEUTROPHILS % (AUTO) 61.5 % (42.0-75.0); PLATELET COUNT 199 X10^3/uL (150.0-450.0); RED BLOOD COUNT 3.22 X10^6/uL (4.7-6.0); RED CELL DISTRIBUTION WIDTH 15.8 % (11.6-16.5); WHITE BLOOD COUNT 3.3 X10^3/uL (3.6-10.0)
[2017-12-17 14:36] LABS: ALANINE AMINOTRANSFERASE 19 Units/L (12-78); ALBUMIN 2.6 g/dL (3.4-5.0); ALKALINE PHOSPHATASE 45 Units/L (46-116); ASPARTATE AMINO TRANSFERASE 53 Units/L (15-37); BLOOD UREA NITROGEN 7 mg/dL (7-18); CALCIUM 8.3 mg/dL (8.5-10.1); CARBON DIOXIDE 24.1 mmol/L (21-32); CHLORIDE 106 mmol/L (98-107); COR CA(FOR HYPOALB) 9.4 mg/dL (8.5-10.1); CREATININE 1.17 mg/dL (0.70-1.30); SODIUM 141 mmol/L (136-145); TOTAL PROTEIN 5.2 g/dL (6.4-8.2); eGFR NON BLACK RACES > 60 (>60)
[2017-12-17] MEDS ORDERED: K-RIDER 10 MEQ/NS 100 ML 10 MEQ/100 ML BAG IV PRN (15:07)
[2017-12-17] MEDS ORDERED: POTASSIUM CHL 40 MEQ/NS 0.45% 500 ML IV PRN (15:07)
[2017-12-17] MEDS ORDERED: MICRO K EXTEN CAP 10 MEQ PO PRN (15:07)
[2017-12-17] MEDS ORDERED: POTASSIUM CHL 60 MEQ/NS 0.45% 500 ML IV PRN (15:07)
[2017-12-17 15:52] LABS: BILIRUBIN,URINE 1+ (NEGATIVE); BLOOD/HEMOGLOBIN,URINE 1+ (NEGATIVE); GLUCOSE, URINE NEGATIVE (NEGATIVE); KETONES,URINE 2+ (NEGATIVE); LEUKOCYTE ESTERASE ,URINE 1+ (NEGATIVE); NITRITES,URINE NEGATIVE (NEGATIVE); PROTEIN,URINE 2+ (NEGATIVE); UROBILINOGEN,URINE 1+ (NORMAL)
--- NOTE | 2017-12-17 16:00 | RAD ---
HISTORY: Renal failure Study: Chest AP portable Comparison: 09/14/2017 Findings: The patient is rotated slightly to the left. The patient is status post median sternotomy. The heart is enlarged. No congestive heart failure is noted. No acute alveolar infiltrates or pleural effusions are identified. The bony thorax is unremarkable. IMPRESSION: Moderate cardiomegaly without congestive heart failure No infiltrates Reported By:
[2017-12-17 16:02] LABS: COLOR,URINE AMBER (YELLOW)
[2017-12-17 16:03] LABS: AMORPHOUS SEDIMENT,UR 1+ /HPF (NEGATIVE); APPEARANCE,URINE SLIGHTLY HAZY (CLEAR); BACTERIA,URINE TRACE /HPF (NEGATIVE); CALCIUM OXALATE CRYSTALS,UR MODERATE /HPF (NEGATIVE); SPERM,URINE MODERATE /HPF (NEGATIVE); SQUAMOUS EPITHELIAL CELL,UR RARE /HPF (NEGATIVE)
[2017-12-17] MEDS: K-DUR TAB 20 MEQ PO PRN (16:05)
[2017-12-17] MEDS: MAGNESIUM SULFATE 1 GRAM/100 mL PREMIX 1 GM/100 ML BAG IV PRN ×2 (16:10→18:00)
[2017-12-17 16:15] LABS: STOOL FOR WBC POSITIVE (NEGATIVE)
[2017-12-17 16:30] LABS: CRYPTOSPORIDIUM PARVUM ANTIGEN NEGATIVE (NEGATIVE); GIARDIA LAMBLIA ANTIGEN NEGATIVE (NEGATIVE)
[2017-12-17 16:41] VITALS: BMI 38.9
--- NOTE | 2017-12-17 18:10 | VAS ---
Lower extremity doppler sonogram Indication: Right leg pain and swelling with recent knee replacement Comparison: None available TECHNIQUE: Multiple flores scale and color flow Doppler images of the deep venous system were obtained of the right lower extremity. FINDINGS: The deep venous system of the right lower extremity was evaluated from the level of the common femora l vein through the popliteal vein. Normal color flow and augmentation can be observed. In addition, normal compression is seen throughout the deep venous system. IMPRESSION: 1. Negative for right lower extremity DVT. Reported By:
[2017-12-17] MEDS ORDERED: SENNOSIDES DOCUSATE SODIUM PO PRN (18:53)
[2017-12-17] MEDS ORDERED: NITROSTAT SL PRN (18:53)
[2017-12-17] MEDS ORDERED: SENOKOT PO PRN (19:11)
[2017-12-17] MEDS: RANEXA PO SCH (20:23)
[2017-12-17] MEDS: OSCAL+D or CALTRATE+D PO SCH (20:23)
[2017-12-17] MEDS: CARDURA PO SCH (20:24)
[2017-12-17] MEDS: LIPITOR TAB 40 MG PO SCH (20:24)
[2017-12-17] MEDS: TRICOR TAB 160 MG PO SCH (20:24)
[2017-12-17] MEDS: VITAMIN C PO SCH (20:25)
[2017-12-17] MEDS: PEPCID TAB 20 MG PO SCH (20:25)
[2017-12-17] MEDS: CORDARONE TAB 200 MG PO SCH (20:28)
[2017-12-17] MEDS ORDERED: ASCORBIC ACID 1000 MG PO SCH (21:00)
[2017-12-17] MEDS ORDERED: CALCIUM CARBONATE VITAMIN D3 PO SCH (21:00)
[2017-12-17] MEDS ORDERED: [UNRECOGNIZED DRUG - OTHER] PO SCH (21:00)
[2017-12-17] MEDS ORDERED: PATIENT'S HOME MEDICATION (Fenofibrate [Fenofibrate 160 Mg] 160 MG) PO SCH (21:00)
[2017-12-17] MEDS: NEURONTIN CAP 100 MG PO SCH (21:02)
[2017-12-18] MEDS: NS 1000 ML 1,000 ML IV SCH ×3 (03:48→15:43)
[2017-12-18 05:27] LABS: EOSINOPHILS # (AUTO) 0.2 x10^3/uL (0.0-0.2); EOSINOPHILS % (AUTO) 5.4 % (0.9-2.9); HEMATOCRIT 28.1 % (42.0-54.0); HEMOGLOBIN 9.5 g/dL (13.5-18.0); LYMPHOCYTES # (AUTO) 0.7 X10^3/uL (1.3-2.9); LYMPHOCYTES % (AUTO) 20.3 % (21.0-51.0); MEAN CORPUSCULAR HEMOGLOBIN 29.1 pg (27.0-34.0); MEAN CORPUSCULAR HGB CONC 33.6 g/dL (33.0-35.0); MEAN CORPUSCULAR VOLUME 86.5 fL (80.0-100.0); MEAN PLATELET VOLUME 8.6 fL (7.4-11.0); MONOCYTES # (AUTO) 0.3 x10^3/uL (0.3-0.8); MONOCYTES % (AUTO) 9.8 % (0.0-13.0); NEUTROPHILS # (AUTO) 2.2 x10^3/uL (2.2-4.8); NEUTROPHILS % (AUTO) 63.5 % (42.0-75.0); PLATELET COUNT 183 X10^3/uL (150.0-450.0); RED BLOOD COUNT 3.25 X10^6/uL (4.7-6.0); RED CELL DISTRIBUTION WIDTH 15.9 % (11.6-16.5); WHITE BLOOD COUNT 3.5 X10^3/uL (3.6-10.0)
[2017-12-18] MEDS: NEURONTIN CAP 100 MG PO SCH ×4 (05:36→21:36)
[2017-12-18 05:55] LABS: ALANINE AMINOTRANSFERASE 19 Units/L (12-78); ALBUMIN 2.3 g/dL (3.4-5.0); ALKALINE PHOSPHATASE 42 Units/L (46-116); ASPARTATE AMINO TRANSFERASE 57 Units/L (15-37); BLOOD UREA NITROGEN 8 mg/dL (7-18); CALCIUM 8.2 mg/dL (8.5-10.1); CARBON DIOXIDE 23.4 mmol/L (21-32); CHLORIDE 107 mmol/L (98-107); COR CA(FOR HYPOALB) 9.6 mg/dL (8.5-10.1); CREATININE 1.03 mg/dL (0.70-1.30); MAGNESIUM 1.7 mg/dL (1.7-2.9); SODIUM 141 mmol/L (136-145); TOTAL PROTEIN 4.8 g/dL (6.4-8.2); eGFR NON BLACK RACES > 60 (>60)
[2017-12-18] MEDS: SYNTHROID 100 mcg TAB PO SCH (06:00)
[2017-12-18] MEDS: ASPIRIN EC 81 MG PO SCH (08:36)
[2017-12-18] MEDS: PROTONIX INJ 40 MG VIAL IVP SCH (08:36)
[2017-12-18] MEDS: TAB-A-VITE PO SCH (08:37)
[2017-12-18] MEDS: CORDARONE TAB 200 MG PO SCH (08:37)
[2017-12-18] MEDS: PEPCID TAB 20 MG PO SCH ×2 (08:37→20:01)
[2017-12-18] MEDS: FERROUS GLUCONATE PO SCH (08:37)
[2017-12-18] MEDS: ZESTRIL TAB 5 MG PO SCH (08:37)
[2017-12-18] MEDS: FOLIC ACID TAB 1 MG PO SCH (08:37)
[2017-12-18] MEDS: RANEXA PO SCH ×2 (08:38→20:03)
[2017-12-18] MEDS: K-DUR TAB 20 MEQ PO PRN (08:38)
[2017-12-18] MEDS: PriLOSEC PO SCH (08:38)
[2017-12-18] MEDS: MONOKET or IMDUR PO SCH (08:38)
[2017-12-18] MEDS ORDERED: PATIENT'S HOME MEDICATION (Ferrous Sulfate [Ferrous Sulfate] 325 MG) PO SCH (09:00)
[2017-12-18] MEDS ORDERED: LEVOTHYROXINE 200 MCG PO SCH (09:00)
[2017-12-18] MEDS ORDERED: FORTAZ or TAZICEF VIAL INJ ONE (09:20)
[2017-12-18] MEDS: FORTAZ or TAZICEF VIAL INJ IVP SCH ×3 (09:21→21:35)
--- NOTE | 2017-12-18 09:41 | DR.UPDATE ---
H&P Update History and Physical Update: History and Physical reviewed and patient examined. Changes noted: Yes with the following: WAS ALSO NOTED WITH AN ELEVATED INR. AND REDNESS AND EDEMA TO THE RIGHT KNEE. HE IS STATUS POST RIGHT KNEE REPLACEMENT. HE REPORTS FALLING OVER A BEDSIDE COMMODE A FEW DAYS AGO. HE WAS ADMITTED TO THE HOSPITAL FOR FURTHER EVALUATION AND TREATMENT. WE PLAN TO OBTAIN A BILATERAL LOWER EXTREMITY VENOUS DOPPLER, CHEST XRAY, STOOL STUDIES, CBC, CMP, PT/INR, PTT, URINALYSIS, AND A KUB. OTHERWISE, WE WILL FOLLOW UP WITH AM LABS AND CONTINUE TO MONITOR.
--- NOTE | 2017-12-18 10:29 | PCM.PROG ---
Progress Note - Progress Note for Day of Date of Exam: 12/18/17 - Subjective Subjective: WAS ADMITTED FOR COMPLAINTS OF RIGHT KNEE PAIN AND SWELLING, DIARRHEA, ABDOMINAL PAIN, WEAKNESS, AND COUMADIN TOXICITY. TODAY, HE IS ALERT AND ORIENTED, LYING IN BED ON MORNING ROUNDS. HE CONTINUES WITH COMPLAINTS OF GENERALIZED WEAKNESS, RIGHT LEG PAIN, ABDOMINAL PAIN, AND SHORT NESS OF BREATH. HE REPORTS DIARRHEA THROUGHOUT THE NIGHT. ON EXAMINATION, HEART IS REGULAR IN RATE AND RHYTHM. BILATERAL LUNGS ARE NOTED WITH DIMINISHED LUNG SOUNDS THROUGHOUT. ABDOMEN IS NOTED WITH MARKED DISTENTION AND MODERATE, DIFFUSE TENDERNESS. DECREASED BOWEL SOUNDS NOTED. RIGHT KNEE NOTED WITH ERYTHEM AND EDEMA. HE REPORTS FALLING A FEW DAYS AGO OVER A BEDSIDE COMMODE. HIS VITALS THIS MORNING ARE 98.3-66-18-98%-127/60. LABS WERE OBTAINED. ABNORMAL LAB VALUES INCLUDE THE FOLLOWING: WBC 3.5, RBC 3.25, HGB 9.5, HCT 28.1, INR 4.38, D-DIMER 1980, POTASSIUM 3.4, GLUCOSE 53, CALCIUM 8.2, AST 57, ALK [place] 42, TOTAL PROTEIN 4.8, ALBUMIN 2.3. URINALYSIS REVEALED WBC 3-5, RBC 3-5, BACTERIA TRACE, LEUKOCYTES 1+. STOOL POSITIVE FOR OCCULT BLOOD AND WBC. CHEST XRAY REVEALED: Moderate cardiomegaly without congestive heart failure. No infiltrates. VENOUS DOPPLER NEGATIVE FOR DVT. TODAY, WE PLAN TO OBTAIN A KUB AND START FORTAZ 1GM IV Q8H. WE WILL CONTINUE TO HOLD COUMADIN. OTHERWISE, WE WILL CONTINUE WITH CURRENT PLAN OF CARE. WE PLAN TO FOLLOW UP WITH AM LABS AND CONTINUE TO MONITOR PATIENT. - Past Medical Family Social History Past Med/Fam/Surg Hx: No changes since H&P Allergies: Allergies Penicillins Allergy (Verified 08/30/17 10:25) - Review of Systems ROS: No change since H&P - Vital Signs and I&O's Vital Signs: Temperature 98.3 F Pulse Rate [Right Brachial] 66 Pulse Rate 72 Respiratory Rate 18 Blood Pressure [Left Arm] 127/60 Blood Pressure [Right Arm] 129/62 Blood Pressure 112/57 O2 Sat by Pulse Oximetry 96 Intake and Output: Intake & Output 12/15/17 12/16/17 12/17/17 12/18/17 11:59 11:59 11:59 11:59 Intake Total 2850 / 2850 Output Total 300 / 300 Balance 2550 / 2550 - Physical Exam Oriented: Normal Eyes: Normal Ear: Normal Nose: Normal Throat: Normal Respiratory: Diminished Cardiovascular: Edema (RIGHT LEG ). negative: S3, S4, Murmur : Normal Auscultation: Bowel Sounds: Decreased Palpation: Normal Tenderness: Diffuse, Moderate, Other (ABDOMINAL DISTENTION ). negative: Rebound, Guarding, Rigidity Skin: Red (RIGHT KNEE ), Tender Musculoskeletal: Right, Knee, Swelling, Tender Psychiatric: Normal Mood Description: Calm Affect: Normal Speech Pattern: Clear, Appropriate - Laboratory and Diagnostics Result Diagrams: 12/18/17 04:40 12/18/17 04:40 Labs: 12/17/17 15:35 Stool Stool Culture - Preliminary 12/17/17 15:35 Stool - Final Laboratory WBC 3.5 X10^3/uL (3.6-10.0) L 12/18/17 04:40 RBC 3.25 X10^6/uL (4.7-6.0) L 12/18/17 04:40 Hgb 9.5 g/dL (13.5-18.0) L 12/18/17 04:40 Hct 28.1 % (42.0-54.0) L 12/18/17 04:40 MCV 86.5 fL (80.0-100.0) 12/18/17 04:40 MCH 29.1 pg (27.0-34.0) 12/18/17 04:40 MCHC 33.6 g/dL (33.0-35.0) 12/18/17 04:40 RDW 15.9 % (11.6-16.5) 12/18/17 04:40 Plt Count 183 X10^3/uL (150.0-450.0) 12/18/17 04:40 MPV 8.6 fL (7.4-11.0) 12/18/17 04:40 Neut % (Auto) 63.5 % (42.0-75.0) 12/18/17 04:40 Lymph % (Auto) 20.3 % (21.0-51.0) L 12/18/17 04:40 [place] % (Auto) 9.8 % (0.0-13.0) 12/18/17 04:40 Eos % (Auto) 5.4 % (0.9-2.9) H 12/18/17 04:40 Baso % (Auto) 1.0 % (0.2-1.0) 12/18/17 04:40 Neut # (Auto) 2.2 x10^3/uL (2.2-4.8) 12/18/17 04:40 Lymph # (Auto) 0.7 X10^3/uL (1.3-2.9) L 12/18/17 04:40 [place] # (Auto) 0.3 x10^3/uL (0.3-0.8) 12/18/17 04:40 Eos # (Auto) 0.2 x10^3/uL (0.0-0.2) 12/18/17 04:40 Baso # (Auto) 0.0 X10^3/uL (0.0-0.1) 12/18/17 04:40 Absolute Nucleated RBC 0.1 /100WBC 12/18/17 04:40 INR Target Range - 12/18/17 04:40 INR 4.38 (0.8-1.3) H 12/18/17 04:40 APTT 62.4 SECONDS (22.9-36.5) H 12/17/17 14:12 PTT Comment - 12/17/17 14:12 D-Dimer 1980 ng/mL (0-400) H* 12/17/17 14:12 Sodium 141 mmol/L (136-145) 12/18/17 04:40 Corrected Sodium TNP 12/18/17 04:40 Potassium 3.4 mmol/L (3.5-5.1) L 12/18/17 04:40 Chloride 107 mmol/L (98-107) 12/18/17 04:40 Carbon Dioxide 23.4 mmol/L (21-32) 12/18/17 04:40 BUN 8 mg/dL (7-18) 12/18/17 04:40 Creatinine 1.03 mg/dL (0.70-1.30) 12/18/17 04:40 Est GFR (MDRD) Af Amer > 60 (>60) 12/18/17 04:40 Est GFR (MDRD) Non-Af > 60 (>60) 12/18/17 04:40 Glucose 53 mg/dL (65-99) L 12/18/17 04:40 Calcium 8.2 mg/dL (8.5-10.1) L 12/18/17 04:40 Corrected Calcium 9.6 mg/dL (8.5-10.1) 12/18/17 04:40 Magnesium 1.7 mg/dL (1.7-2.9) 12/18/17 04:40 Total Bilirubin 0.60 mg/dL (0.2-1.0) 12/18/17 04:40 AST 57 Units/L (15-37) H 12/18/17 04:40 ALT 19 Units/L (12-78) 12/18/17 04:40 Alkaline Phosphatase 42 Units/L (46-116) L 12/18/17 04:40 Total Protein 4.8 g/dL (6.4-8.2) L 12/18/17 04:40 Albumin 2.3 g/dL (3.4-5.0) L 12/18/17 04:40 Globulin 2.5 g/dL (2.5-4.5) 12/18/17 04:40 Albumin/Globulin Ratio 0.9 Ratio (1.1-2.1) L 12/18/17 04:40 Specimen Type Random urine 12/17/17 15:35 Urine Color [place] (YELLOW) 12/17/17 15:35 Urine Appearance Slightly hazy (CLEAR) 12/17/17 15:35 Urine pH 5.0 (5.0 - 8.0) 12/17/17 15:35 Ur Specific [place] 1.025 (1.000-1.030) 12/17/17 15:35 Urine Protein 2+ (NEGATIVE) 12/17/17 15:35 Urine Glucose (UA) Negative (NEGATIVE) 12/17/17 15:35 Urine Ketones 2+ (NEGATIVE) 12/17/17 15:35 Urine Occult Blood 1+ (NEGATIVE) 12/17/17 15:35 Urine Nitrite Negative (NEGATIVE) 12/17/17 15:35 Urine Bilirubin 1+ (NEGATIVE) 12/17/17 15:35 Urine Urobilinogen 1+ (NORMAL) 12/17/17 15:35 Ur Leukocyte Esterase 1+ (NEGATIVE) 12/17/17 15:35 Urine RBC 3-5 /HPF (NONE SEEN) 12/17/17 15:35 Urine WBC 3-5 /HPF (NONE SEEN) 12/17/17 15:35 Ur Squamous Epith Cells Rare /HPF (NEGATIVE) 12/17/17 15:35 Calcium Oxalate Crystal Moderate /HPF (NEGATIVE) 12/17/17 15:35 Amorphous Sediment 1+ /HPF (NEGATIVE) 12/17/17 15:35 Urine Bacteria Trace /HPF (NEGATIVE) 12/17/17 15:35 Urine Sperm Moderate /HPF (NEGATIVE) 12/17/17 15:35 Ur Culture Indicated? No/not indicated 12/17/17 15:35 Stool Description 15g,dkbrn,semiformed 12/17/17 15:35 Stl Occult Blood (IFOB) Positive (NEGATIVE) A 12/17/17 15:35 Stool for White Cells Positive (NEGATIVE) A 12/17/17 15:35 Stl C. diff Tox B Gene Negative (NEGATIVE) 12/17/17 15:35 Stl C. diff [id number] Negative (NEGATIVE) 12/17/17 15:35 Cryptosporid parvum Ag Negative (NEGATIVE) 12/17/17 15:35 Giardia lamblia Ag Negative (NEGATIVE) 12/17/17 15:35
[2017-12-18] MEDS ORDERED: MAGNESIUM 500 MG PO SCH (12:00)
[2017-12-18] MEDS: MAG-OX TAB PO SCH (12:20)
[2017-12-18] MEDS: GARLIC 1000 MG PO SCH (12:26)
[2017-12-18] MEDS: GLUCOSAMINE CHONDROITIN PO SCH (12:26)
--- NOTE | 2017-12-18 13:07 | RAD ---
HISTORY: Abdominal distention, abdominal pain and swelling since last week. Study: KUB Comparison: CT scan of the abdomen and pelvis done 07/13/2016. Findings: There is very mild gaseous distention of small bowel loops in the mid epigastric region. Air and stoo l are present involving the colon. Findings have the appearance of a mild small bowel ileus. No evide nce of bowel obstruction is seen. There is no evidence of opaque stone. There are surgical clips from cholecystectomy. Multilevel lumbar spondylosis is appreciated. IMPRESSION: Mild small bowel ileus pattern without obstruction. Reported By:
[2017-12-18] MEDS: NORCO 5/325 MG TAB PO PRN ×3 (15:07→23:43)
[2017-12-18] MEDS: CARDURA PO SCH (20:01)
[2017-12-18] MEDS: VITAMIN C PO SCH (20:01)
[2017-12-18] MEDS: LIPITOR TAB 40 MG PO SCH (20:02)
[2017-12-18] MEDS: TRICOR TAB 160 MG PO SCH (20:02)
[2017-12-18] MEDS: OSCAL+D or CALTRATE+D PO SCH (20:03)
[2017-12-19] MEDS: NS 1000 ML 1,000 ML IV SCH (05:16)
[2017-12-19] MEDS: NEURONTIN CAP 100 MG PO SCH ×3 (05:17→21:00)
[2017-12-19] MEDS: NORCO 5/325 MG TAB PO PRN (05:17)
[2017-12-19] MEDS: FORTAZ or TAZICEF VIAL INJ IVP SCH ×3 (05:17→21:00)
[2017-12-19 06:09] LABS: BASOPHILS % (AUTO) 1.1 % (0.2-1.0); EOSINOPHILS # (AUTO) 0.2 x10^3/uL (0.0-0.2); EOSINOPHILS % (AUTO) 5.6 % (0.9-2.9); HEMATOCRIT 29.1 % (42.0-54.0); HEMOGLOBIN 9.6 g/dL (13.5-18.0); LYMPHOCYTES # (AUTO) 0.7 X10^3/uL (1.3-2.9); LYMPHOCYTES % (AUTO) 20.3 % (21.0-51.0); MEAN CORPUSCULAR HEMOGLOBIN 28.8 pg (27.0-34.0); MEAN CORPUSCULAR HGB CONC 32.9 g/dL (33.0-35.0); MEAN CORPUSCULAR VOLUME 87.4 fL (80.0-100.0); MEAN PLATELET VOLUME 8.7 fL (7.4-11.0); MONOCYTES # (AUTO) 0.4 x10^3/uL (0.3-0.8); MONOCYTES % (AUTO) 10.3 % (0.0-13.0); NEUTROPHILS # (AUTO) 2.3 x10^3/uL (2.2-4.8); NEUTROPHILS % (AUTO) 62.7 % (42.0-75.0); PLATELET COUNT 188 X10^3/uL (150.0-450.0); RED BLOOD COUNT 3.33 X10^6/uL (4.7-6.0); RED CELL DISTRIBUTION WIDTH 16.2 % (11.6-16.5); WHITE BLOOD COUNT 3.6 X10^3/uL (3.6-10.0)
[2017-12-19] MEDS: SYNTHROID 100 mcg TAB PO SCH (06:13)
[2017-12-19 06:20] LABS: ALANINE AMINOTRANSFERASE 17 Units/L (12-78); ALBUMIN 2.4 g/dL (3.4-5.0); ALKALINE PHOSPHATASE 47 Units/L (46-116); ASPARTATE AMINO TRANSFERASE 65 Units/L (15-37); BLOOD UREA NITROGEN 8 mg/dL (7-18); CALCIUM 8.1 mg/dL (8.5-10.1); CARBON DIOXIDE 22.6 mmol/L (21-32); CHLORIDE 106 mmol/L (98-107); COR CA(FOR HYPOALB) 9.4 mg/dL (8.5-10.1); CREATININE 1.28 mg/dL (0.70-1.30); MAGNESIUM 1.6 mg/dL (1.7-2.9); SODIUM 141 mmol/L (136-145); TOTAL PROTEIN 4.9 g/dL (6.4-8.2); eGFR NON BLACK RACES 59 (>60)
[2017-12-19] MEDS: ASPIRIN EC 81 MG PO SCH (08:53)
[2017-12-19] MEDS: CORDARONE TAB 200 MG PO SCH (08:53)
[2017-12-19] MEDS: FOLIC ACID TAB 1 MG PO SCH (08:54)
[2017-12-19] MEDS: D5 NS 1000 ML 1,000 ML IV SCH ×2 (08:54→09:21)
[2017-12-19] MEDS: FERROUS GLUCONATE PO SCH (08:54)
[2017-12-19] MEDS: RANEXA PO SCH ×2 (08:55→21:00)
[2017-12-19] MEDS: MONOKET or IMDUR PO SCH (08:55)
[2017-12-19] MEDS: PROTONIX INJ 40 MG VIAL IVP SCH (08:55)
[2017-12-19] MEDS: PriLOSEC PO SCH (08:55)
[2017-12-19] MEDS: PEPCID TAB 20 MG PO SCH ×2 (08:55→20:59)
[2017-12-19] MEDS: ZESTRIL TAB 5 MG PO SCH (08:56)
[2017-12-19] MEDS: POTASSIUM CHLORIDE LIQ 20 MEQ UDC PO PRN (08:56)
[2017-12-19] MEDS: TAB-A-VITE PO SCH (08:56)
[2017-12-19] MEDS: MAGNESIUM SULFATE 1 GRAM/100 mL PREMIX 1 GM/100 ML BAG IV PRN ×2 (08:56→10:43)
[2017-12-19] MEDS: ALBUMIN HUMAN 25%- 100 ML 100 ML IV SCH (09:47)
[2017-12-19] MEDS ORDERED: ZOFRAN INJ 4 MG VIAL IVP PRN (10:59)
[2017-12-19] MEDS: GARLIC 1000 MG PO SCH (12:10)
[2017-12-19] MEDS: GLUCOSAMINE CHONDROITIN PO SCH (12:10)
[2017-12-19] MEDS: MAG-OX TAB PO SCH (12:10)
[2017-12-19] MEDS ORDERED: AQUA-MEPHYTON ADULT INJ SC ONE (17:25)
[2017-12-19] MEDS: DUONEB 0.5 MG/3 MG NEB PRN (18:05)
[2017-12-19] MEDS: LIPITOR TAB 40 MG PO SCH (20:58)
[2017-12-19] MEDS: OSCAL+D or CALTRATE+D PO SCH (20:58)
[2017-12-19] MEDS: TRICOR TAB 160 MG PO SCH (20:58)
[2017-12-19] MEDS: VITAMIN C PO SCH (20:59)
[2017-12-19] MEDS: CARDURA PO SCH (20:59)
[2017-12-19] MEDS: SNACK - Diabetic Appropriate PO SCH (21:00)
[2017-12-20] MEDS: D5 NS 1000 ML 1,000 ML IV SCH ×4 (04:48→22:37)
[2017-12-20] MEDS: FORTAZ or TAZICEF VIAL INJ IVP SCH ×3 (05:29→21:06)
[2017-12-20] MEDS: NEURONTIN CAP 100 MG PO SCH ×3 (05:29→21:20)
[2017-12-20 05:47] LABS: BASOPHILS % (AUTO) 1.3 % (0.2-1.0); EOSINOPHILS # (AUTO) 0.2 x10^3/uL (0.0-0.2); EOSINOPHILS % (AUTO) 4.7 % (0.9-2.9); HEMATOCRIT 27.5 % (42.0-54.0); HEMOGLOBIN 9.1 g/dL (13.5-18.0); LYMPHOCYTES # (AUTO) 0.6 X10^3/uL (1.3-2.9); LYMPHOCYTES % (AUTO) 17.8 % (21.0-51.0); MEAN CORPUSCULAR HEMOGLOBIN 29.1 pg (27.0-34.0); MEAN CORPUSCULAR HGB CONC 33.1 g/dL (33.0-35.0); MEAN CORPUSCULAR VOLUME 87.9 fL (80.0-100.0); MEAN PLATELET VOLUME 8.8 fL (7.4-11.0); MONOCYTES # (AUTO) 0.3 x10^3/uL (0.3-0.8); MONOCYTES % (AUTO) 9.6 % (0.0-13.0); NEUTROPHILS # (AUTO) 2.2 x10^3/uL (2.2-4.8); NEUTROPHILS % (AUTO) 66.6 % (42.0-75.0); PLATELET COUNT 187 X10^3/uL (150.0-450.0); RED BLOOD COUNT 3.13 X10^6/uL (4.7-6.0); RED CELL DISTRIBUTION WIDTH 16.1 % (11.6-16.5); WHITE BLOOD COUNT 3.4 X10^3/uL (3.6-10.0)
[2017-12-20 06:06] LABS: ALANINE AMINOTRANSFERASE 22 Units/L (12-78); ALBUMIN 2.4 g/dL (3.4-5.0); ALKALINE PHOSPHATASE 44 Units/L (46-116); ASPARTATE AMINO TRANSFERASE 76 Units/L (15-37); BLOOD UREA NITROGEN 8 mg/dL (7-18); CALCIUM 8.4 mg/dL (8.5-10.1); CARBON DIOXIDE 22.5 mmol/L (21-32); CHLORIDE 106 mmol/L (98-107); COR CA(FOR HYPOALB) 9.7 mg/dL (8.5-10.1); CREATININE 1.38 mg/dL (0.70-1.30); MAGNESIUM 1.8 mg/dL (1.7-2.9); SODIUM 140 mmol/L (136-145); TOTAL PROTEIN 4.9 g/dL (6.4-8.2); eGFR NON BLACK RACES 54 (>60)
[2017-12-20] MEDS: SYNTHROID 100 mcg TAB PO SCH (06:09)
--- NOTE | 2017-12-20 07:53 | RAD ---
Examination: KUB History: Abdominal distention and pain Comparison 12/18/2017 Findings: The abdomen is relatively gasless although detail is significantly limited by patient size. There is no obvious intestinal dilatation, mass formation or pathologic calcification. Impression: No acute findings on technically limited KUB. Reported By:
[2017-12-20] MEDS: ALBUMIN HUMAN 25%- 100 ML 100 ML IV SCH (09:12)
[2017-12-20] MEDS: MAGNESIUM SULFATE 1 GRAM/100 mL PREMIX 1 GM/100 ML BAG IV PRN ×2 (09:13→16:30)
[2017-12-20] MEDS: CORDARONE TAB 200 MG PO SCH (09:14)
[2017-12-20] MEDS: ASPIRIN EC 81 MG PO SCH (09:14)
[2017-12-20] MEDS: FERROUS GLUCONATE PO SCH (09:15)
[2017-12-20] MEDS: LASIX IVP SCH ×2 (09:15→21:50)
[2017-12-20] MEDS: MONOKET or IMDUR PO SCH (09:16)
[2017-12-20] MEDS: PEPCID TAB 20 MG PO SCH ×2 (09:16→20:30)
[2017-12-20] MEDS: PriLOSEC PO SCH (09:16)
[2017-12-20] MEDS: FOLIC ACID TAB 1 MG PO SCH (09:16)
[2017-12-20] MEDS: PROTONIX INJ 40 MG VIAL IVP SCH (09:17)
[2017-12-20] MEDS: RANEXA PO SCH ×2 (09:17→20:30)
[2017-12-20] MEDS: TAB-A-VITE PO SCH (09:18)
[2017-12-20] MEDS: ZESTRIL TAB 5 MG PO SCH (09:18)
[2017-12-20] MEDS: POTASSIUM CHLORIDE LIQ 20 MEQ UDC PO PRN ×2 (09:18→21:50)
--- NOTE | 2017-12-20 09:40 | PCM.PROG ---
Progress Note - Progress Note for Day of Date of Exam: 12/21/17 - Subjective Subjective: WAS ADMITTED FOR COMPLAINTS OF RIGHT KNEE PAIN AND SWELLING, DIARRHEA, ABDOMINAL PAIN, WEAKNESS, AND COUMADIN TOXICITY. TODAY, HE IS ALERT AND ORIENTED, LYING IN BED ON MORNING ROUNDS. HE CONTINUES WITH COMPLAINTS OF ABDOMINAL PAIN, SHORTNESS OF BREATH, AND WEAKNESS. HE REPORTS THAT KNEE PAIN HAS SLIGHTLY IMPROVED AND THAT THE DIARRHEA HAS DECREASED. ON EXAMINATION, HEART IS REGULAR IN RATE AND RHYTHM. BILATERAL LUNGS ARE NOTED WITH DIMINISHED LUNG SOUNDS THROUGHOUT. ABDOMEN CONTINUES WITH MARKED DISTENTION AND MODERATE, DIFFUSE TENDERNESS. DECREASED BOWEL SOUNDS NOTED. RIGHT KNEE CONTINUES WITH ERYTHEMA. HIS VITALS THIS MORNING ARE 98.1-66-22-94%-147/65. LABS WERE OBTAINED. ABNORMAL LAB VALUES INCLUDE THE FOLLOWING: RBC 3.33, HGB 9.6, HCT 29.1, INR 4.84, POTASSIUM 3.4, GLUCOSE 51, CALCIUM 8.1, MAGNESIUM 1.6, AST 65, TOTAL PROTEIN 4.9, ALBUMIN 2.4. A KUB WAS OBTAINED YESTERDAY AND REVEALED A MILD SMALL BOWEL ILEUS PATTERN WITHOUT OBSTRUCTION. TODAY, WE WILL CONTINUE TO HOLD HIS COUMADIN. WE WILL RECHEC KHIS INR AT 1700 AND ADMINISTER VITAMIN K 5MG SUBCUTANEOUS X 1 DOSE IF GREATER THAN 5.0. WE WILL ALSO START ALBUMIN 25% IV DAILY. OTHERWISE, WE WILL CONTINUE WITH CURRENT PLAN OF CARE. WE PLAN TO FOLLOW UP WITH AM LABS AND CONTINUE TO MONITOR PATIENT. - Past Medical Family Social History Past Med/Fam/Surg Hx: No changes since H&P Allergies: Allergies Penicillins Allergy (Verified 08/30/17 10:25) - Review of Systems ROS: No change since H&P - Vital Signs and I&O's Vital Signs: Temperature 97.9 F Pulse Rate [Right Brachial] 70 Pulse Rate 65 Respiratory Rate 20 Blood Pressure [Left Arm] 133/62 Blood Pressure [Right Arm] 129/62 Blood Pressure 112/57 O2 Sat by Pulse Oximetry 98 Intake and Output: Intake & Output 12/17/17 12/18/17 12/19/17 12/20/17 11:59 11:59 11:59 11:59 Intake Total 2850 / 2850 3277 / 3277 2680 / 2680 Output Total 300 / 300 200 / 200 100 / 100 Balance 2550 / 2550 3077 / 3077 2580 / 2580 - Physical Exam Oriented: Normal Eyes: Normal Ear: Normal Nose: Normal Throat: Normal Respiratory: Diminished Cardiovascular: Edema (RIGHT LEG ). negative: S3, S4, Murmur : Normal Auscultation: Bowel Sounds: Decreased Palpation: Normal Tenderness: Diffuse, Moderate, Other (ABDOMINAL DISTENTION ). negative: Rebound, Guarding, Rigidity Skin: Red (RIGHT KNEE ), Tender Musculoskeletal: Right, Knee, Tender Psychiatric: Normal Mood Description: Calm Affect: Normal Speech Pattern: Clear, Appropriate - Laboratory and Diagnostics Result Diagrams: 12/20/17 04:20 12/20/17 04:20 Labs: 12/17/17 15:35 Stool Stool Culture - Final 12/17/17 15:35 Stool - Final Laboratory WBC 3.4 X10^3/uL (3.6-10.0) L 12/20/17 04:20 RBC 3.13 X10^6/uL (4.7-6.0) L 12/20/17 04:20 Hgb 9.1 g/dL (13.5-18.0) L 12/20/17 04:20 Hct 27.5 % (42.0-54.0) L 12/20/17 04:20 MCV 87.9 fL (80.0-100.0) 12/20/17 04:20 MCH 29.1 pg (27.0-34.0) 12/20/17 04:20 MCHC 33.1 g/dL (33.0-35.0) 12/20/17 04:20 RDW 16.1 % (11.6-16.5) 12/20/17 04:20 Plt Count 187 X10^3/uL (150.0-450.0) 12/20/17 04:20 MPV 8.8 fL (7.4-11.0) 12/20/17 04:20 Neut % (Auto) 66.6 % (42.0-75.0) 12/20/17 04:20 Lymph % (Auto) 17.8 % (21.0-51.0) L 12/20/17 04:20 [place] % (Auto) 9.6 % (0.0-13.0) 12/20/17 04:20 Eos % (Auto) 4.7 % (0.9-2.9) H 12/20/17 04:20 Baso % (Auto) 1.3 % (0.2-1.0) H 12/20/17 04:20 Neut # (Auto) 2.2 x10^3/uL (2.2-4.8) 12/20/17 04:20 Lymph # (Auto) 0.6 X10^3/uL (1.3-2.9) L 12/20/17 04:20 [place] # (Auto) 0.3 x10^3/uL (0.3-0.8) 12/20/17 04:20 Eos # (Auto) 0.2 x10^3/uL (0.0-0.2) 12/20/17 04:20 Baso # (Auto) 0.0 X10^3/uL (0.0-0.1) 12/20/17 04:20 Absolute Nucleated RBC 0.0 /100WBC 12/20/17 04:20 INR Target Range - 12/20/17 04:20 INR 4.59 (0.8-1.3) H 12/20/17 04:20 APTT 62.4 SECONDS (22.9-36.5) H 12/17/17 14:12 PTT Comment - 12/17/17 14:12 D-Dimer 1980 ng/mL (0-400) H* 12/17/17 14:12 Sodium 140 mmol/L (136-145) 12/20/17 04:20 Corrected Sodium TNP 12/20/17 04:20 Potassium 3.4 mmol/L (3.5-5.1) L 12/20/17 04:20 Chloride 106 mmol/L (98-107) 12/20/17 04:20 Carbon Dioxide 22.5 mmol/L (21-32) 12/20/17 04:20 BUN 8 mg/dL (7-18) 12/20/17 04:20 Creatinine 1.38 mg/dL (0.70-1.30) H 12/20/17 04:20 Est GFR (MDRD) Af Amer > 60 (>60) 12/20/17 04:20 Est GFR (MDRD) Non-Af 54 (>60) L 12/20/17 04:20 Glucose 52 mg/dL (65-99) L 12/20/17 04:20 Calcium 8.4 mg/dL (8.5-10.1) L 12/20/17 04:20 Corrected Calcium 9.7 mg/dL (8.5-10.1) 12/20/17 04:20 Magnesium 1.8 mg/dL (1.7-2.9) 12/20/17 04:20 Total Bilirubin 0.50 mg/dL (0.2-1.0) 12/20/17 04:20 AST 76 Units/L (15-37) H 12/20/17 04:20 ALT 22 Units/L (12-78) 12/20/17 04:20 Alkaline Phosphatase 44 Units/L (46-116) L 12/20/17 04:20 Total Protein 4.9 g/dL (6.4-8.2) L 12/20/17 04:20 Albumin 2.4 g/dL (3.4-5.0) L 12/20/17 04:20 Globulin 2.5 g/dL (2.5-4.5) 12/20/17 04:20 Albumin/Globulin Ratio 1.0 Ratio (1.1-2.1) L 12/20/17 04:20 Specimen Type Random urine 12/17/17 15:35 Urine Color Neisha (YELLOW) 12/17/17 15:35 Urine Appearance Slightly hazy (CLEAR) 12/17/17 15:35 Urine pH 5.0 (5.0 - 8.0) 12/17/17 15:35 Ur Specific [employer] 1.025 (1.000-1.030) 12/17/17 15:35 Urine Protein 2+ (NEGATIVE) 12/17/17 15:35 Urine Glucose (UA) Negative (NEGATIVE) 12/17/17 15:35 Urine Ketones 2+ (NEGATIVE) 12/17/17 15:35 Urine Occult Blood 1+ (NEGATIVE) 12/17/17 15:35 Urine Nitrite Negative (NEGATIVE) 12/17/17 15:35 Urine Bilirubin 1+ (NEGATIVE) 12/17/17 15:35 Urine Urobilinogen 1+ (NORMAL) 12/17/17 15:35 Ur Leukocyte Esterase 1+ (NEGATIVE) 12/17/17 15:35 Urine RBC 3-5 /HPF (NONE SEEN) 12/17/17 15:35 Urine WBC 3-5 /HPF (NONE SEEN) 12/17/17 15:35 Ur Squamous Epith Cells Rare /HPF (NEGATIVE) 12/17/17 15:35 Calcium Oxalate Crystal Moderate /HPF (NEGATIVE) 12/17/17 15:35 Amorphous Sediment 1+ /HPF (NEGATIVE) 12/17/17 15:35 Urine Bacteria Trace /HPF (NEGATIVE) 12/17/17 15:35 Urine Sperm Moderate /HPF (NEGATIVE) 12/17/17 15:35 Ur Culture Indicated? No/not indicated 12/17/17 15:35 Stool Description 15g,dkbrn,semiformed 12/17/17 15:35 Stl Occult Blood (IFOB) Positive (NEGATIVE) A 12/17/17 15:35 Stool for White Cells Positive (NEGATIVE) A 12/17/17 15:35 Stl C. diff Tox B Gene Negative (NEGATIVE) 12/17/17 15:35 Stl C. diff [id number] Negative (NEGATIVE) 12/17/17 15:35 Cryptosporid parvum Ag Negative (NEGATIVE) 12/17/17 15:35 Giardia lamblia Ag Negative (NEGATIVE) 12/17/17 15:35
[2017-12-20] MEDS: GLUCOSAMINE CHONDROITIN PO SCH (12:19)
[2017-12-20] MEDS: GARLIC 1000 MG PO SCH (12:19)
[2017-12-20] MEDS: MAG-OX TAB PO SCH (12:20)
[2017-12-20] MEDS: NORCO 5/325 MG TAB PO PRN (13:18)
[2017-12-20] MEDS: DUONEB 0.5 MG/3 MG NEB PRN (14:50)
[2017-12-20] MEDS ORDERED: NS 100 ML IV + SPIKE MINIBAG* 0 ML IV ONE (20:06)
[2017-12-20] MEDS: CARDURA PO SCH (20:27)
[2017-12-20] MEDS: LIPITOR TAB 40 MG PO SCH (20:29)
[2017-12-20] MEDS: OSCAL+D or CALTRATE+D PO SCH (20:30)
[2017-12-20] MEDS: SNACK - Diabetic Appropriate PO SCH (20:30)
[2017-12-20] MEDS: VITAMIN C PO SCH (20:31)
[2017-12-20] MEDS: TRICOR TAB 160 MG PO SCH (20:31)
[2017-12-20] MEDS: KLOR-CON PO PRN (21:50)
[2017-12-21] MEDS: D5 NS 1000 ML 1,000 ML IV SCH ×2 (01:54→14:08)
[2017-12-21] MEDS: KLOR-CON PO PRN (02:05)
[2017-12-21 05:58] LABS: BASOPHILS % (AUTO) 0.9 % (0.2-1.0); EOSINOPHILS # (AUTO) 0.2 x10^3/uL (0.0-0.2); HEMOGLOBIN 9.7 g/dL (13.5-18.0); LYMPHOCYTES # (AUTO) 0.7 X10^3/uL (1.3-2.9); LYMPHOCYTES % (AUTO) 20.1 % (21.0-51.0); MEAN CORPUSCULAR HEMOGLOBIN 28.6 pg (27.0-34.0); MEAN CORPUSCULAR HGB CONC 32.5 g/dL (33.0-35.0); MEAN PLATELET VOLUME 8.6 fL (7.4-11.0); MONOCYTES # (AUTO) 0.3 x10^3/uL (0.3-0.8); MONOCYTES % (AUTO) 9.5 % (0.0-13.0); NEUTROPHILS # (AUTO) 2.1 x10^3/uL (2.2-4.8); NEUTROPHILS % (AUTO) 63.5 % (42.0-75.0); PLATELET COUNT 213 X10^3/uL (150.0-450.0); RED BLOOD COUNT 3.41 X10^6/uL (4.7-6.0); RED CELL DISTRIBUTION WIDTH 16.5 % (11.6-16.5); WHITE BLOOD COUNT 3.3 X10^3/uL (3.6-10.0)
[2017-12-21] MEDS: NEURONTIN CAP 100 MG PO SCH ×3 (05:59→21:33)
[2017-12-21] MEDS: FORTAZ or TAZICEF VIAL INJ IVP SCH ×3 (06:00→21:33)
[2017-12-21] MEDS: SYNTHROID 100 mcg TAB PO SCH (06:00)
[2017-12-21 07:07] LABS: ALANINE AMINOTRANSFERASE 27 Units/L (12-78); ALBUMIN 2.8 g/dL (3.4-5.0); ALKALINE PHOSPHATASE 48 Units/L (46-116); ASPARTATE AMINO TRANSFERASE 83 Units/L (15-37); BLOOD UREA NITROGEN 8 mg/dL (7-18); CALCIUM 8.5 mg/dL (8.5-10.1); CARBON DIOXIDE 20.1 mmol/L (21-32); CHLORIDE 105 mmol/L (98-107); COR CA(FOR HYPOALB) 9.5 mg/dL (8.5-10.1); CREATININE 1.36 mg/dL (0.70-1.30); SODIUM 139 mmol/L (136-145); TOTAL PROTEIN 5.4 g/dL (6.4-8.2); eGFR NON BLACK RACES 55 (>60)
[2017-12-21] MEDS: ALBUMIN HUMAN 25%- 100 ML 100 ML IV SCH (09:29)
[2017-12-21] MEDS: CORDARONE TAB 200 MG PO SCH (09:30)
[2017-12-21] MEDS: FERROUS GLUCONATE PO SCH (09:31)
[2017-12-21] MEDS: ZESTRIL TAB 5 MG PO SCH (09:31)
[2017-12-21] MEDS: TAB-A-VITE PO SCH (09:31)
[2017-12-21] MEDS: MONOKET or IMDUR PO SCH (09:31)
[2017-12-21] MEDS: RANEXA PO SCH ×2 (09:32→21:33)
[2017-12-21] MEDS: FOLIC ACID TAB 1 MG PO SCH (09:32)
[2017-12-21] MEDS: PriLOSEC PO SCH (09:32)
[2017-12-21] MEDS: PEPCID TAB 20 MG PO SCH ×2 (09:32→21:33)
[2017-12-21] MEDS: ASPIRIN EC 81 MG PO SCH (09:32)
[2017-12-21 10:23] LABS: ABG BASE EXCESS -3.8 mmol/L (-2.0-2.0); ABG HCO3 20.7 mmol/L (22-26)
[2017-12-21 10:24] LABS: ABG ALLEN TEST POS; FRACTIONATED INSPIRED OXYGEN 21
[2017-12-21] MEDS ORDERED: STERILE WATER IRRIGATION IR ONE (11:03)
[2017-12-21] MEDS: DUONEB 0.5 MG/3 MG NEB PRN ×2 (12:14→23:50)
--- NOTE | 2017-12-21 12:56 | PCM.PROG ---
Progress Note - Progress Note for Day of Date of Exam: 12/21/17 - Subjective Subjective: WAS ADMITTED FOR COMPLAINTS OF RIGHT KNEE PAIN AND SWELLING, DIARRHEA, ABDOMINAL PAIN, WEAKNESS, AND COUMADIN TOXICITY. TODAY, HE IS ALERT AND ORIENTED, LYING IN BED ON MORNING ROUNDS. HE CONTINUES WITH COMPLAINTS OF ABDOMINAL PAIN, SHORTNESS OF BREATH, AND WEAKNESS. HE REPORTS THAT KNEE PAIN HAS SLIGHTLY IMPROVED AND THAT THE DIARRHEA HAS DECREASED. ON EXAMINATION, HEART IS REGULAR IN RATE AND RHYTHM. BILATERAL LUNGS ARE DIMINISHED LUNG SOUNDS THROUGHOUT. ABDOMEN CONTINUES WITH MARKED DISTENTION AND MODERATE, DIFFUSE TENDERNESS. DECREASED BOWEL SOUNDS NOTED. RIGHT KNEE CONTINUES WITH ERYTHEMA. WBC 3.3 THIS AM, HGB 9.7, INR 2.32 BUN 8 CREAT 1.36. STAT 2 VIEW CXR, ABG THIS AM. DC ALBUMIN, IVF DECREASED TO KVO. - Past Medical Family Social History Past Med/Fam/Surg Hx: No changes since H&P Allergies: Allergies Penicillins Allergy (Verified 08/30/17 10:25) - Review of Systems ROS: No change since H&P - Vital Signs and I&O's Vital Signs: Temperature 97.8 F Pulse Rate [Right Brachial] 71 Pulse Rate 65 Respiratory Rate 24 Blood Pressure [Left Arm] 156/63 Blood Pressure [Right Arm] 129/62 Blood Pressure 112/57 O2 Sat by Pulse Oximetry 93 Intake and Output: Intake & Output 12/19/17 12/20/17 12/21/17 12/22/17 11:59 11:59 11:59 11:59 Intake Total 3277 / 3277 2680 / 2680 2865 / 2865 Output Total 200 / 200 100 / 100 890 / 890 Balance 3077 / 3077 2580 / 2580 1974 - Physical Exam Oriented: Normal Eyes: Normal Ear: Normal Nose: Normal Throat: Normal Respiratory: Diminished Cardiovascular: Edema (RIGHT LEG ). negative: S3, S4, Murmur : Normal Auscultation: Bowel Sounds: Decreased Tenderness: Diffuse, Moderate, Other (ABDOMINAL DISTENTION ). negative: Rebound, Guarding, Rigidity Skin: Red (RIGHT KNEE ), Tender Musculoskeletal: Right, Knee, Tender Psychiatric: Normal Mood Description: Calm Affect: Normal Speech Pattern: Clear, Appropriate - Laboratory and Diagnostics Result Diagrams: 12/21/17 05:40 12/21/17 05:40 Labs: 12/17/17 15:35 Stool Stool Culture - Final 12/17/17 15:35 Stool - Final Laboratory WBC 3.3 X10^3/uL (3.6-10.0) L 12/21/17 05:40 RBC 3.41 X10^6/uL (4.7-6.0) L 12/21/17 05:40 Hgb 9.7 g/dL (13.5-18.0) L 12/21/17 05:40 Hct 30.0 % (42.0-54.0) L 12/21/17 05:40 MCV 88.0 fL (80.0-100.0) 12/21/17 05:40 MCH 28.6 pg (27.0-34.0) 12/21/17 05:40 MCHC 32.5 g/dL (33.0-35.0) L 12/21/17 05:40 RDW 16.5 % (11.6-16.5) 12/21/17 05:40 Plt Count 213 X10^3/uL (150.0-450.0) 12/21/17 05:40 MPV 8.6 fL (7.4-11.0) 12/21/17 05:40 Neut % (Auto) 63.5 % (42.0-75.0) 12/21/17 05:40 Lymph % (Auto) 20.1 % (21.0-51.0) L 12/21/17 05:40 [place] % (Auto) 9.5 % (0.0-13.0) 12/21/17 05:40 Eos % (Auto) 6.0 % (0.9-2.9) H 12/21/17 05:40 Baso % (Auto) 0.9 % (0.2-1.0) 12/21/17 05:40 Neut # (Auto) 2.1 x10^3/uL (2.2-4.8) L 12/21/17 05:40 Lymph # (Auto) 0.7 X10^3/uL (1.3-2.9) L 12/21/17 05:40 [place] # (Auto) 0.3 x10^3/uL (0.3-0.8) 12/21/17 05:40 Eos # (Auto) 0.2 x10^3/uL (0.0-0.2) 12/21/17 05:40 Baso # (Auto) 0.0 X10^3/uL (0.0-0.1) 12/21/17 05:40 Absolute Nucleated RBC 0.4 /100WBC 12/21/17 05:40 INR Target Range - 12/21/17 05:40 INR 2.32 (0.8-1.3) H 12/21/17 05:40 APTT 62.4 SECONDS (22.9-36.5) H 12/17/17 14:12 PTT Comment - 12/17/17 14:12 D-Dimer 1980 ng/mL (0-400) H* 12/17/17 14:12 Sample Site Lr 12/21/17 10:18 ABG pH 7.380 (7.35-7.45) 12/21/17 10:18 ABG pCO2 35.0 mmHg (35.0-45.0) 12/21/17 10:18 ABG pO2 85.0 mmHg (80.0-100.0) 12/21/17 10:18 ABG HCO3 20.7 mmol/L (22-26) L 12/21/17 10:18 ABG O2 Saturation 96.0 % (90-100) 12/21/17 10:18 ABG Base Excess -3.8 mmol/L (-2.0-2.0) L 12/21/17 10:18 Say Test Pos 12/21/17 10:18 A-a Gradient 21.0 mmHg 12/21/17 10:18 FiO2 21 12/21/17 10:18 Blood Gas Comments Pt [email or web address] 12/21/17 10:18 Sodium 139 mmol/L (136-145) 12/21/17 05:40 Corrected Sodium TNP 12/21/17 05:40 Potassium 3.8 mmol/L (3.5-5.1) 12/21/17 05:40 Chloride 105 mmol/L (98-107) 12/21/17 05:40 Carbon Dioxide 20.1 mmol/L (21-32) L 12/21/17 05:40 BUN 8 mg/dL (7-18) 12/21/17 05:40 Creatinine 1.36 mg/dL (0.70-1.30) H 12/21/17 05:40 Est GFR (MDRD) Af Amer > 60 (>60) 12/21/17 05:40 Est GFR (MDRD) Non-Af 55 (>60) L 12/21/17 05:40 Glucose 71 mg/dL (65-99) 12/21/17 05:40 POC Glucose (mg/dL) 72 mg/dL (65-99) 12/21/17 05:43 Calcium 8.5 mg/dL (8.5-10.1) 12/21/17 05:40 Corrected Calcium 9.5 mg/dL (8.5-10.1) 12/21/17 05:40 Magnesium 1.8 mg/dL (1.7-2.9) 12/20/17 04:20 Total Bilirubin 0.70 mg/dL (0.2-1.0) 12/21/17 05:40 AST 83 Units/L (15-37) H 12/21/17 05:40 ALT 27 Units/L (12-78) 12/21/17 05:40 Alkaline Phosphatase 48 Units/L (46-116) 12/21/17 05:40 Total Protein 5.4 g/dL (6.4-8.2) L 12/21/17 05:40 Albumin 2.8 g/dL (3.4-5.0) L 12/21/17 05:40 Globulin 2.6 g/dL (2.5-4.5) 12/21/17 05:40 Albumin/Globulin Ratio 1.1 Ratio (1.1-2.1) 12/21/17 05:40 Specimen Type Random urine 12/17/17 15:35 Urine Color Neisha (YELLOW) 12/17/17 15:35 Urine Appearance Slightly hazy (CLEAR) 12/17/17 15:35 Urine pH 5.0 (5.0 - 8.0) 12/17/17 15:35 Ur Specific [place] 1.025 (1.000-1.030) 12/17/17 15:35 Urine Protein 2+ (NEGATIVE) 12/17/17 15:35 Urine Glucose (UA) Negative (NEGATIVE) 12/17/17 15:35 Urine Ketones 2+ (NEGATIVE) 12/17/17 15:35 Urine Occult Blood 1+ (NEGATIVE) 12/17/17 15:35 Urine Nitrite Negative (NEGATIVE) 12/17/17 15:35 Urine Bilirubin 1+ (NEGATIVE) 12/17/17 15:35 Urine Urobilinogen 1+ (NORMAL) 12/17/17 15:35 Ur Leukocyte Esterase 1+ (NEGATIVE) 12/17/17 15:35 Urine RBC 3-5 /HPF (NONE SEEN) 12/17/17 15:35 Urine WBC 3-5 /HPF (NONE SEEN) 12/17/17 15:35 Ur Squamous Epith Cells Rare /HPF (NEGATIVE) 12/17/17 15:35 Calcium Oxalate Crystal Moderate /HPF (NEGATIVE) 12/17/17 15:35 Amorphous Sediment 1+ /HPF (NEGATIVE) 12/17/17 15:35 Urine Bacteria Trace /HPF (NEGATIVE) 12/17/17 15:35 Urine Sperm Moderate /HPF (NEGATIVE) 12/17/17 15:35 Ur Culture Indicated? No/not indicated 12/17/17 15:35 Stool Description 15g,dkbrn,semiformed 12/17/17 15:35 Stl Occult Blood (IFOB) Positive (NEGATIVE) A 12/17/17 15:35 Stool for White Cells Positive (NEGATIVE) A 12/17/17 15:35 Stl C. diff Tox B Gene Negative (NEGATIVE) 12/17/17 15:35 Stl C. diff [id number] Negative (NEGATIVE) 12/17/17 15:35 Cryptosporid parvum Ag Negative (NEGATIVE) 12/17/17 15:35 Giardia lamblia Ag Negative (NEGATIVE) 12/17/17 15:35 - Plan (1) SOB (shortness of breath) Status: Acute Plan: BLOOD PRESSURE AND BLOOD SUGAR CONTROL. CARDIAC MONITORING, STRICT I & OS. IVF AT KVO, 2VIEW XRAY, ABG THIS AM. ATBX THERAPY, SUPPLEMENTAL O2 (2) Abdominal distension Status: Acute (3) Atrial fibrillation Status: Acute (4) Diabetes Status: Chronic Qualifiers: Diabetes mellitus type: type 2 Diabetes mellitus assisted insulin use: without oysterman use Diabetes mellitus complication status: without complication Qualified Code(s): E11.9 - Type 2 diabetes mellitus without complications (5) CAD (coronary artery disease) Status: Chronic Qualifiers: Coronary Disease-Associated Artery/Lesion type: [place] artery [place] vs. transplanted heart: [place] heart Associated angina: without angina Qualified Code(s): I25.10 - Atherosclerotic heart disease of [place] coronary artery without angina pectoris (6) GERD (gastroesophageal reflux disease) Status: Chronic Qualifiers: Esophagitis presence: esophagitis presence not specified Qualified Code(s): K21.9 - Gastro-esophageal reflux disease without esophagitis (7) Hypertension Status: Chronic Qualifiers: Hypertension type: essential hypertension Qualified Code(s): I10 - Essential (primary) hypertension (8) Status post right knee replacement Status: Acute
[2017-12-21] MEDS: GARLIC 1000 MG PO SCH (13:29)
[2017-12-21] MEDS: GLUCOSAMINE CHONDROITIN PO SCH (13:29)
--- NOTE | 2017-12-21 13:32 | RAD ---
Examination: Chest, PA and lateral views History: SOB Comparison 12/17/2017 Findings: Cardiomegaly, sternal wires, pulmonary vascular congestion. There is increased density in 1 of the posterior costophrenic sulci on lateral view. There is no evidence for pulmonary edema or pne umonia. Impression: Cardiomegaly, previous surgery, coronary artery arteriosclerosis. Pulmonary vascular leonidas estion. Suspect small posterior pleural effusion. Reported By:
[2017-12-21] MEDS: MAG-OX TAB PO SCH (13:59)
[2017-12-21 17:26] LABS: BILIRUBIN,URINE NEGATIVE (NEGATIVE); BLOOD/HEMOGLOBIN,URINE 2+ (NEGATIVE); GLUCOSE, URINE NEGATIVE (NEGATIVE); KETONES,URINE 1+ (NEGATIVE); LEUKOCYTE ESTERASE ,URINE NEGATIVE (NEGATIVE); NITRITES,URINE NEGATIVE (NEGATIVE); PROTEIN,URINE 1+ (NEGATIVE); UROBILINOGEN,URINE NORMAL (NORMAL)
[2017-12-21 17:32] LABS: APPEARANCE,URINE CLEAR (CLEAR); COLOR,URINE YELLOW (YELLOW)
[2017-12-21 17:41] LABS: AMORPHOUS SEDIMENT,UR 1+ /HPF (NEGATIVE); BACTERIA,URINE NEGATIVE /HPF (NEGATIVE); HYALINE CASTS, URINE FEW /LPF (NEGATIVE); SQUAMOUS EPITHELIAL CELL,UR RARE /HPF (NEGATIVE)
[2017-12-21] MEDS: LASIX IVP SCH ×2 (18:38→21:32)
--- NOTE | 2017-12-21 19:44 | CT ---
STUDY: CT CHEST WITHOUT CONTRAST HISTORY: Shortness of breath. Distended abdomen. Comparison: Chest radiograph from December 21, 2017. Technique: Multiple axial images of the chest were obtained from the thoracic inlet to the upper abdo men without the administration of IV contrast. Findings: Scattered lymph nodes are noted within the mediastinum. No pathologically enlarged lymph nodes are id entified. The heart appears enlarged. There is no significant pericardial effusion. The aorta has a normal appearance. The central pulmonary arterial system has a normal nonenhanced appearance. Evaluation of the lung parenchyma shows no evidence of consolidation, significant infiltrate or pneum othorax. There is a moderate size right-sided pleural effusion. There is mild compressive atelectasi s in the right lung base. No pulmonary nodule or mass is identified. The bony thorax is unremarkable in its appearance. IMPRESSION: 1. Moderate size right-sided pleural effusion. 2. Cardiomegaly. Reported By:
[2017-12-21] MEDS: SNACK - Diabetic Appropriate PO SCH (20:15)
--- NOTE | 2017-12-21 21:13 | CT ---
CT abdomen and pelvis without contrast Indication: Distended abdomen Comparison: None available Technique: Multiple axial images of the abdomen and pelvis were obtained from the lung bases to the pubic symphy sis without the administration of IV contrast. Findings: Moderate right-sided pleural effusion with passive atelectasis within the right lower lobe. Coronary artery atherosclerotic disease is noted as well. No focal hepatic lesion identified given limitations of a noncontrast examination. Previous cholecystectomy is noted. No bile duct dilatation is visualiz ed. The spleen is normal aside for moderate amount of perisplenic free fluid. Addition there is small amount of perihepatic free fluid. The pancreas is mildly atrophic no ductal dilatation of the pancre as. The adrenal glands and kidneys are within normal limits. Upper GI tract demonstrates markedly abn ormal appearance of the 2nd and 3rd portion the duodenum, there is a very large poorly defined increa sed density collection adjacent to the proximal duodenum and inferior to the liver measuring at least 17 x 12 mm however again this is not well organized. Fluid tracks into the right perirenal space as well. Urinary bladder is collapsed around a Siddiqi catheter. The rectum is normal. Moderate diverticulosis w ithin the distal colon without evidence of acute diverticulitis. The ascending colon is not able to b e visualized secondary to the above-described large fluid collection. Abdominal aorta is normal in ca liber with scattered calcified atherosclerotic disease. Moderate amount of pelvic free fluid. Review of bone windows demonstrates no acute osseous abnormality previous locked intramedullary libia and scre w are noted within the proximal femur without hardware complication. Impression: 1.Large ill-defined increased density fluid present within the mid and right lower quadrant of the ab domen given density this represents either hematoma/blood products or complex infected fluid collecti on. The collection obscures visualization of the 2nd and 3rd portion duodenum along with the ascendin g colon and the possibility of underlying mass or even perforation of either of these viscus structur es is not excluded by this examination. Surgical consultation is needed for further evaluation. 2. Moderate-size right pleural effusion. 3. Moderate distal colonic diverticulosis without evidence of acute diverticulitis. Reported By:
[2017-12-21] MEDS: CARDURA PO SCH (21:31)
[2017-12-21] MEDS: OSCAL+D or CALTRATE+D PO SCH (21:32)
[2017-12-21] MEDS: LIPITOR TAB 40 MG PO SCH (21:32)
[2017-12-21] MEDS: TRICOR TAB 160 MG PO SCH (21:33)
[2017-12-21] MEDS: VITAMIN C PO SCH (21:33)
[2017-12-21] MEDS ORDERED: NS 100 ML IV 100 ML IV ONE (21:55)
[2017-12-21 22:14] LABS: BASOPHILS % (AUTO) 1.2 % (0.2-1.0); EOSINOPHILS # (AUTO) 0.1 x10^3/uL (0.0-0.2); EOSINOPHILS % (AUTO) 4.8 % (0.9-2.9); HEMATOCRIT 27.4 % (42.0-54.0); HEMOGLOBIN 9.2 g/dL (13.5-18.0); LYMPHOCYTES # (AUTO) 0.6 X10^3/uL (1.3-2.9); LYMPHOCYTES % (AUTO) 19.3 % (21.0-51.0); MEAN CORPUSCULAR HEMOGLOBIN 29.1 pg (27.0-34.0); MEAN CORPUSCULAR HGB CONC 33.5 g/dL (33.0-35.0); MEAN CORPUSCULAR VOLUME 86.9 fL (80.0-100.0); MEAN PLATELET VOLUME 8.2 fL (7.4-11.0); MONOCYTES # (AUTO) 0.3 x10^3/uL (0.3-0.8); MONOCYTES % (AUTO) 10.1 % (0.0-13.0); NEUTROPHILS # (AUTO) 1.9 x10^3/uL (2.2-4.8); NEUTROPHILS % (AUTO) 64.6 % (42.0-75.0); PLATELET COUNT 184 X10^3/uL (150.0-450.0); RED BLOOD COUNT 3.15 X10^6/uL (4.7-6.0); RED CELL DISTRIBUTION WIDTH 16.2 % (11.6-16.5)
[2017-12-21 22:17] LABS: BLOOD UREA NITROGEN 5 mg/dL (7-18); CALCIUM 8.5 mg/dL (8.5-10.1); CARBON DIOXIDE 21.9 mmol/L (21-32); CHLORIDE 105 mmol/L (98-107); CREATININE 1.22 mg/dL (0.70-1.30); SODIUM 140 mmol/L (136-145); eGFR NON BLACK RACES > 60 (>60)
[2017-12-21] MEDS ORDERED: PREPARATION H OINT RECTAL PRN (23:16)
--- NOTE | 2017-12-21 23:39 | CT ---
CT abdomen and pelvis with contrast Indication: Abdominal pain Comparison: CT performed earlier on same day without contrast Technique: Multiple axial images of the abdomen and pelvis were obtained from the lung bases to the pubic symphy sis after the administration of IV contrast. Findings: Stable moderate-size right pleural effusion with compressive atelectasis within the right lower lobe. No focal hepatic lesion identified. The gallbladder is absent. Bile ducts are normal in caliber. The spleen is unremarkable with small amount of perisplenic free fluid. The pancreas is within normal li mits. Adrenal glands are normal. Neither kidney demonstrates evidence of nephrolithiasis, hydronephro sis or mass. Upper GI tract demonstrates thickening of the 2nd and 3rd portion of the duodenum withou t evidence of obstruction. Abdominal aorta is normal in caliber with moderate calcified atherosclerot ic disease. Portal vein is widely patent. Urinary bladder is collapsed around a Siddiqi catheter. Prost ate gland is normal. The rectum is normal. The distal colon demonstrates a few diverticula without ev idence of acute diverticulitis. The ascending colon demonstrates marked bowel wall thickening with se fabio narrowing of the lumen. The previously described non localizing fluid collection is again noted, however there is diffuse enhancement making this less likely represent simple or complex fluid and m ore concerning for infiltrating neoplastic process. There is also small amount of non localizing laye ring fluid within the lower abdomen and pelvis. No enlarged lymph node is identified. Review of bone windows demonstrates no acute osseous abnormality. IMPRESSION: Marked bowel wall thickening and narrowing of the lumen of the ascending colon with confluent poorly defined soft tissue density which demonstrates slight enhancement compared to priors non con CT exami nation extending from the colonic mass centrally within the mesenteric root and tracking along the ce ntral mesentery and nearly completely encircling the proximal duodenum. There is non localizing fluid within the more inferior mesentery extending into the abdomen and pelvis as well. Findings are most likely to represent underlying mass which has epicenter within the ascending colon and given the inf iltrating nature most likely etiologies would include a primary lymphoma or carcinoid/desmoid tumor; however, given lack of calcification this is felt less likely than lymphoma. Neither the severe colon ic bowel wall thickening or proximal duodenal thickening causes obstruction. Given the abnormal infil trating appearance to this process a superimposed intramural hematoma in the setting of anticoagulati on is possible; however, this is definitely not the primary cause of bowel wall thickening within the colon and adjacent duodenum. The layering fluid within the lower abdomen and pelvis may be secondary to vascular congestion and increased pressure related to infiltrating mesenteric mass versus a volum e overload/CHF process for which clinical correlation is needed. 2. Moderate right-sided pleural effusion with compressive atelectasis of the right lower lobe. 3. Multiple other chronic, incidental findings as described above. Findings discussed with Dr. Lacey by Dr. Fine at approximate 11:35 p.m. on 12/21/2017 Reported By:
[2017-12-22] MEDS: FORTAZ or TAZICEF VIAL INJ IVP SCH ×2 (05:36→13:39)
[2017-12-22] MEDS: NEURONTIN CAP 100 MG PO SCH ×2 (05:36→13:39)
[2017-12-22 05:54] LABS: BASOPHILS % (AUTO) 1.3 % (0.2-1.0); EOSINOPHILS # (AUTO) 0.1 x10^3/uL (0.0-0.2); EOSINOPHILS % (AUTO) 3.8 % (0.9-2.9); HEMATOCRIT 27.2 % (42.0-54.0); HEMOGLOBIN 9.1 g/dL (13.5-18.0); LYMPHOCYTES # (AUTO) 0.6 X10^3/uL (1.3-2.9); LYMPHOCYTES % (AUTO) 20.4 % (21.0-51.0); MEAN CORPUSCULAR HGB CONC 33.5 g/dL (33.0-35.0); MEAN CORPUSCULAR VOLUME 86.6 fL (80.0-100.0); MEAN PLATELET VOLUME 8.3 fL (7.4-11.0); MONOCYTES # (AUTO) 0.3 x10^3/uL (0.3-0.8); MONOCYTES % (AUTO) 10.7 % (0.0-13.0); NEUTROPHILS # (AUTO) 1.9 x10^3/uL (2.2-4.8); NEUTROPHILS % (AUTO) 63.8 % (42.0-75.0); PLATELET COUNT 179 X10^3/uL (150.0-450.0); RED BLOOD COUNT 3.14 X10^6/uL (4.7-6.0); RED CELL DISTRIBUTION WIDTH 16.3 % (11.6-16.5); WHITE BLOOD COUNT 2.9 X10^3/uL (3.6-10.0)
[2017-12-22] MEDS: SYNTHROID 100 mcg TAB PO SCH (06:10)
[2017-12-22] MEDS: DUONEB 0.5 MG/3 MG NEB PRN ×2 (06:15→12:23)
[2017-12-22 06:19] LABS: ALANINE AMINOTRANSFERASE 23 Units/L (12-78); ALBUMIN 2.7 g/dL (3.4-5.0); ALKALINE PHOSPHATASE 44 Units/L (46-116); ASPARTATE AMINO TRANSFERASE 69 Units/L (15-37); BLOOD UREA NITROGEN 6 mg/dL (7-18); CALCIUM 8.7 mg/dL (8.5-10.1); CARBON DIOXIDE 23.1 mmol/L (21-32); CHLORIDE 106 mmol/L (98-107); COR CA(FOR HYPOALB) 9.7 mg/dL (8.5-10.1); CREATININE 1.22 mg/dL (0.70-1.30); SODIUM 142 mmol/L (136-145); eGFR NON BLACK RACES > 60 (>60)
[2017-12-22] MEDS ORDERED: GLUTOSE 15 GEL ORAL PO PRN (06:33)
[2017-12-22] MEDS ORDERED: D50W ABBOJECT SYR IV PRN (06:33)
[2017-12-22] MEDS: D50W ABBOJECT SYR IV PRN ×2 (07:40→09:24)
[2017-12-22] MEDS: MONOKET or IMDUR PO SCH (09:04)
[2017-12-22] MEDS: RANEXA PO SCH (09:04)
[2017-12-22] MEDS: CORDARONE TAB 200 MG PO SCH (09:05)
[2017-12-22] MEDS: LASIX IVP SCH (09:05)
[2017-12-22] MEDS: FOLIC ACID TAB 1 MG PO SCH (09:05)
[2017-12-22] MEDS: PriLOSEC PO SCH (09:06)
[2017-12-22] MEDS: ASPIRIN EC 81 MG PO SCH (09:06)
[2017-12-22] MEDS: FERROUS GLUCONATE PO SCH (09:06)
[2017-12-22] MEDS: PEPCID TAB 20 MG PO SCH (09:06)
[2017-12-22] MEDS: ZESTRIL TAB 5 MG PO SCH (09:06)
[2017-12-22] MEDS: TAB-A-VITE PO SCH (09:07)
[2017-12-22] MEDS: POTASSIUM CHLORIDE LIQ 20 MEQ UDC PO PRN (09:25)
[2017-12-22] MEDS: MAG-OX TAB PO SCH (13:39)
[2017-12-22] MEDS ORDERED: XYLOCAINE OINT 5% TOP SCH (14:00)
[2017-12-22 16:35] VITALS: BP 116/57
--- NOTE | 2018-01-07 10:09 | PCM.DCPLAN ---
Discharge Summary - Admission Date Date of Admission: 12/17/17 - Discharge Date Discharge Date: 12/22/17 - Admission Diagnoses (1) Abdominal distension Status: Acute (2) Atrial fibrillation Status: Acute (3) SOB (shortness of breath) Status: Acute (4) Status post right knee replacement Status: Acute (5) CAD (coronary artery disease) Status: Chronic (6) Diabetes Status: Chronic (7) GERD (gastroesophageal reflux disease) Status: Chronic (8) Hypertension Status: Chronic - Discharge Diagnoses Discharge Diagnosis: SAME ADMISSION DIAGNOSIS INCLUDING COLONIC MASS WITH MESENTERIC INVOLVEMENT. - Discharge Medications Discharge Medications: Home Medication List albuterol sulfate [Ventolin HFA] 2 puff INHALATION BID PRN 12/17/17 [History] amiodarone 200 mg PO DAILY 12/17/17 [History] aspirin [Aspirin Low Dose] 81 mg PO DAILY 12/17/17 [History] famotidine 20 mg PO BID 12/17/17 [History] ferrous sulfate 325 mg PO DAILY 12/17/17 [History] folic acid 1 mg PO DAILY 12/17/17 [History] hydrocodone-acetaminophen 1 tab PO Q4H PRN MDD NO MORE THAN 3GM OF APAP TOTAL 12/17/17 [History] levothyroxine 200 mcg PO DAILY 12/17/17 [History] omeprazole 40 mg PO DAILY 12/17/17 [History] sennosides-docusate sodium [Senexon-S] 2 tab PO DAILY PRN 12/17/17 [History] warfarin 5 mg PO SUTUTH 12/17/17 [History] warfarin 7.5 mg PO MOWEFRSA 12/17/17 [History] Prescriptions: - Hospital Course Vital Signs: Temperature 98.8 F Pulse Rate [Right Brachial] 72 Pulse Rate 88 Respiratory Rate 24 Blood Pressure [Left Arm] 116/57 Blood Pressure [Right Arm] 129/62 Blood Pressure 112/57 O2 Sat by Pulse Oximetry 96 Latest Lab Results: Laboratory Last Values WBC 2.9 X10^3/uL (3.6-10.0) L 12/22/17 05:28 RBC 3.14 X10^6/uL (4.7-6.0) L 12/22/17 05:28 Hgb 9.1 g/dL (13.5-18.0) L 12/22/17 05:28 Hct 27.2 % (42.0-54.0) L 12/22/17 05:28 MCV 86.6 fL (80.0-100.0) 12/22/17 05:28 MCH 29.0 pg (27.0-34.0) 12/22/17 05:28 MCHC 33.5 g/dL (33.0-35.0) 12/22/17 05:28 RDW 16.3 % (11.6-16.5) 12/22/17 05:28 Plt Count 179 X10^3/uL (150.0-450.0) 12/22/17 05:28 MPV 8.3 fL (7.4-11.0) 12/22/17 05:28 Neut % (Auto) 63.8 % (42.0-75.0) 12/22/17 05:28 Lymph % (Auto) 20.4 % (21.0-51.0) L 12/22/17 05:28 [place] % (Auto) 10.7 % (0.0-13.0) 12/22/17 05:28 Eos % (Auto) 3.8 % (0.9-2.9) H 12/22/17 05:28 Baso % (Auto) 1.3 % (0.2-1.0) H 12/22/17 05:28 Neut # (Auto) 1.9 x10^3/uL (2.2-4.8) L 12/22/17 05:28 Lymph # (Auto) 0.6 X10^3/uL (1.3-2.9) L 12/22/17 05:28 [place] # (Auto) 0.3 x10^3/uL (0.3-0.8) 12/22/17 05:28 Eos # (Auto) 0.1 x10^3/uL (0.0-0.2) 12/22/17 05:28 Baso # (Auto) 0.0 X10^3/uL (0.0-0.1) 12/22/17 05:28 Absolute Nucleated RBC 0.1 /100WBC 12/22/17 05:28 INR Target Range - 12/22/17 05:28 INR 2.08 (0.8-1.3) H 12/22/17 05:28 APTT 62.4 SECONDS (22.9-36.5) H 12/17/17 14:12 PTT Comment - 12/17/17 14:12 D-Dimer 1980 ng/mL (0-400) H* 12/17/17 14:12 Sample Site Lr 12/21/17 10:18 ABG pH 7.380 (7.35-7.45) 12/21/17 10:18 ABG pCO2 35.0 mmHg (35.0-45.0) 12/21/17 10:18 ABG pO2 85.0 mmHg (80.0-100.0) 12/21/17 10:18 ABG HCO3 20.7 mmol/L (22-26) L 12/21/17 10:18 ABG O2 Saturation 96.0 % (90-100) 12/21/17 10:18 ABG Base Excess -3.8 mmol/L (-2.0-2.0) L 12/21/17 10:18 Say Test Pos 12/21/17 10:18 A-a Gradient 21.0 mmHg 12/21/17 10:18 FiO2 21 12/21/17 10:18 Blood Gas Comments Pt [email or web address] 12/21/17 10:18 Sodium 142 mmol/L (136-145) 12/22/17 05:28 Corrected Sodium TNP 12/22/17 05:28 Potassium 3.3 mmol/L (3.5-5.1) L 12/22/17 05:28 Chloride 106 mmol/L (98-107) 12/22/17 05:28 Carbon Dioxide 23.1 mmol/L (21-32) 12/22/17 05:28 BUN 6 mg/dL (7-18) L 12/22/17 05:28 Creatinine 1.22 mg/dL (0.70-1.30) 12/22/17 05:28 Est GFR (MDRD) Af Amer > 60 (>60) 12/22/17 05:28 Est GFR (MDRD) Non-Af > 60 (>60) 12/22/17 05:28 Glucose 59 mg/dL (65-99) L 12/22/17 05:28 POC Glucose (mg/dL) 59 mg/dL (65-99) L 12/22/17 09:14 Calcium 8.7 mg/dL (8.5-10.1) 12/22/17 05:28 Corrected Calcium 9.7 mg/dL (8.5-10.1) 12/22/17 05:28 Magnesium 1.8 mg/dL (1.7-2.9) 12/20/17 04:20 Total Bilirubin 0.70 mg/dL (0.2-1.0) 12/22/17 05:28 AST 69 Units/L (15-37) H 12/22/17 05:28 ALT 23 Units/L (12-78) 12/22/17 05:28 Alkaline Phosphatase 44 Units/L (46-116) L 12/22/17 05:28 Lactate Dehydrogenase 1254 Units/L (85-227) H 12/22/17 05:28 Total Protein 5.0 g/dL (6.4-8.2) L 12/22/17 05:28 Albumin 2.7 g/dL (3.4-5.0) L 12/22/17 05:28 Globulin 2.3 g/dL (2.5-4.5) L 12/22/17 05:28 Albumin/Globulin Ratio 1.2 Ratio (1.1-2.1) 12/22/17 05:28 Carcinoembryonic Ag 1.8 ng/mL (0.0-3.0) 12/22/17 14:56 Specimen Type Catherized urine 12/21/17 17:13 Urine Color Yellow (YELLOW) 12/21/17 17:13 Urine Appearance Clear (CLEAR) 12/21/17 17:13 Urine pH 6.0 (5.0 - 8.0) 12/21/17 17:13 Ur Specific [place] 1.010 (1.000-1.030) 12/21/17 17:13 Urine Protein 1+ (NEGATIVE) 12/21/17 17:13 Urine Glucose (UA) Negative (NEGATIVE) 12/21/17 17:13 Urine Ketones 1+ (NEGATIVE) 12/21/17 17:13 Urine Occult Blood 2+ (NEGATIVE) 12/21/17 17:13 Urine Nitrite Negative (NEGATIVE) 12/21/17 17:13 Urine Bilirubin Negative (NEGATIVE) 12/21/17 17:13 Urine Urobilinogen Normal (NORMAL) 10/13/18 17:13 Ur Leukocyte Esterase Negative (NEGATIVE) 12/21/17 17:13 Urine RBC 5-10 /HPF (NONE SEEN) 12/21/17 17:13 Urine WBC None seen /HPF (NONE SEEN) 12/21/17 17:13 Ur Squamous Epith Cells Rare /HPF (NEGATIVE) 12/21/17 17:13 Calcium Oxalate Crystal Moderate /HPF (NEGATIVE) 12/17/17 15:35 Amorphous Sediment 1+ /HPF (NEGATIVE) 12/21/17 17:13 Urine Bacteria Negative /HPF (NEGATIVE) 12/21/17 17:13 Hyaline Casts Few /LPF (NEGATIVE) 12/21/17 17:13 Urine Sperm Moderate /HPF (NEGATIVE) 12/17/17 15:35 Ur Culture Indicated? Yes/culture set up 12/21/17 17:13 Stool Description 5g,pastey,darkbrown 12/21/17 18:33 Stl Occult Blood (IFOB) Positive (NEGATIVE) A 12/21/17 18:33 Stool for White Cells Positive (NEGATIVE) A 12/17/17 15:35 Stl C. diff Tox B Gene Negative (NEGATIVE) 12/17/17 15:35 Stl C. diff [id number] Negative (NEGATIVE) 12/17/17 15:35 Chromogranin A 1120 ng/mL (0-95) H 12/22/17 05:28 Cryptosporid parvum Ag Negative (NEGATIVE) 12/17/17 15:35 Giardia lamblia Ag Negative (NEGATIVE) 12/17/17 15:35 Hospital Course: WAS ADMITTED FOR COMPLAINTS OF RIGHT KNEE PAIN AND SWELLING, DIARRHEA, ABDOMINAL PAIN, WEAKNESS, AND COUMADIN TOXICITY. HE CONTINUES WITH COMPLAINTS OF ABDOMINAL PAIN, SHORTNESS OF BREATH, AND WEAKNESS. HE REPORTS THAT KNEE PAIN HAS SLIGHTLY IMPROVED AND THAT THE DIARRHEA HAS DECREASED. ON EXAMINATION, HEART IS REGULAR IN RATE AND RHYTHM. BILATERAL LUNGS ARE DIMINISHED LUNG SOUNDS THROUGHOUT. ABDOMEN CONTINUES WITH MARKED DISTENTION AND MODERATE, DIFFUSE TENDERNESS. DECREASED BOWEL SOUNDS NOTED. RIGHT KNEE CONTINUES WITH ERYTHEMA. WBC 3.3 THIS AM, HGB 9.7, INR 2.32 [address] OF ABDOMEN REVEALS COLONIC MASS WITH MESENTETRIC INVOLVEMENT. PATIENT TRANSFERRED TO [facility] FOR FURTHER CARE AND EVALUATION. - Discharge Plan Disposition: [facility] Condition: Stable - Follow ups/Referrals Follow ups/Referrals: [facility] AND [Other] Sam Ireland [Primary Care Provider] - 1 WEEK - Instructions
--- NOTE | 2018-03-13 16:44 | PCM.PROG ---
Progress Note - Progress Note for Day of Date of Exam: 12/20/17 - Subjective Subjective: WAS ADMITTED FOR COMPLAINTS OF RIGHT KNEE PAIN AND SWELLING, DIARRHEA, ABDOMINAL PAIN, WEAKNESS, AND COUMADIN TOXICITY. TODAY, HE IS ALERT AND ORIENTED, LYING IN BED ON MORNING ROUNDS. HE CONTINUES WITH COMPLAINTS OF ABDOMINAL PAIN, SHORTNESS OF BREATH, AND WEAKNESS. HE REPORTS THAT KNEE PAIN HAS SLIGHTLY IMPROVED AND THAT THE DIARRHEA HAS DECREASED. SWELLING TO KNEE CONTINUES. ON EXAMINATION, HEART IS REGULAR IN RATE AND RHYTHM. BILATERAL LUNGS ARE NOTED WITH DIMINISHED LUNG SOUNDS THROUGHOUT. ABDOMEN CONTINUES WITH MARKED DISTENTION AND MODERATE, DIFFUSE TENDERNESS. DECREASED BOWEL SOUNDS NOTED. RIGHT KNEE CONTINUES WITH ERYTHEMA. HIS VITALS THIS MORNING ARE 97.9-70-20-98%-133/62. LABS WERE OBTAINED. ABNORMAL LAB VALUES INCLUDE THE FOLLOWING: WBC 3.4, RBC 3.13, HGB 9.1, HCT 27.5, INR 4.59, POTASSIUM 3.4, CREATININE 1.38, CALCIUM 8.4, AST 76, ALK PHOS 44, TOTAL PROTEIN 4.9, ALBUMIN 2.4. TODAY, WE WILL CONTINUE TO HOLD HIS COUMADIN. WE WILL RESTRICT HIS FLUIDS, START LASIX 20MG IV X12H, AND OBTAIN AN ECHO. OTHERWISE, WE WILL CONTINUE WITH CURRENT PLAN OF CARE. WE PLAN TO FOLLOW UP WITH AM LABS AND CONTINUE TO MONITOR PATIENT. - Past Medical Family Social History Past Med/Fam/Surg Hx: No changes since H&P Allergies: Allergies Penicillins Allergy (Verified 08/30/17 10:25) - Review of Systems ROS: No change since H&P - Vital Signs and I&O's Vital Signs: Temperature 98.8 F Pulse Rate [Right Brachial] 72 Pulse Rate 88 Respiratory Rate 24 Blood Pressure [Left Arm] 116/57 Blood Pressure [Right Arm] 129/62 Blood Pressure 112/57 O2 Sat by Pulse Oximetry 96 - Physical Exam Oriented: Normal Eyes: Normal Ear: Normal Nose: Normal Throat: Normal Respiratory: Diminished Cardiovascular: Edema (RIGHT LEG ). negative: S3, S4, Murmur : Normal Auscultation: Bowel Sounds: Decreased Palpation: Normal Tenderness: Diffuse, Moderate, Other (ABDOMINAL DISTENTION ). negative: Rebound, Guarding, Rigidity Skin: Red (RIGHT KNEE ), Tender Musculoskeletal: Right, Knee, Tender Psychiatric: Normal Mood Description: Calm Affect: Normal Speech Pattern: Clear, Appropriate - Laboratory and Diagnostics Result Diagrams: 12/22/17 05:28 12/22/17 05:28 Labs: 12/21/17 17:13 Urine,Catheterized Urine Culture - Final 12/17/17 15:35 Stool Stool Culture - Final 12/17/17 15:35 Stool - Final Laboratory WBC 2.9 X10^3/uL (3.6-10.0) L 12/22/17 05:28 RBC 3.14 X10^6/uL (4.7-6.0) L 12/22/17 05:28 Hgb 9.1 g/dL (13.5-18.0) L 12/22/17 05:28 Hct 27.2 % (42.0-54.0) L 12/22/17 05:28 MCV 86.6 fL (80.0-100.0) 12/22/17 05:28 MCH 29.0 pg (27.0-34.0) 12/22/17 05:28 MCHC 33.5 g/dL (33.0-35.0) 12/22/17 05:28 RDW 16.3 % (11.6-16.5) 12/22/17 05:28 Plt Count 179 X10^3/uL (150.0-450.0) 12/22/17 05:28 MPV 8.3 fL (7.4-11.0) 12/22/17 05:28 Neut % (Auto) 63.8 % (42.0-75.0) 12/22/17 05:28 Lymph % (Auto) 20.4 % (21.0-51.0) L 12/22/17 05:28 [place] % (Auto) 10.7 % (0.0-13.0) 12/22/17 05:28 Eos % (Auto) 3.8 % (0.9-2.9) H 12/22/17 05:28 Baso % (Auto) 1.3 % (0.2-1.0) H 12/22/17 05:28 Neut # (Auto) 1.9 x10^3/uL (2.2-4.8) L 12/22/17 05:28 Lymph # (Auto) 0.6 X10^3/uL (1.3-2.9) L 12/22/17 05:28 [place] # (Auto) 0.3 x10^3/uL (0.3-0.8) 12/22/17 05:28 Eos # (Auto) 0.1 x10^3/uL (0.0-0.2) 12/22/17 05:28 Baso # (Auto) 0.0 X10^3/uL (0.0-0.1) 12/22/17 05:28 Absolute Nucleated RBC 0.1 /100WBC 12/22/17 05:28 INR Target Range - 12/22/17 05:28 INR 2.08 (0.8-1.3) H 12/22/17 05:28 APTT 62.4 SECONDS (22.9-36.5) H 12/17/17 14:12 PTT Comment - 12/17/17 14:12 D-Dimer 1980 ng/mL (0-400) H* 12/17/17 14:12 Sample Site Lr 12/21/17 10:18 ABG pH 7.380 (7.35-7.45) 12/21/17 10:18 ABG pCO2 35.0 mmHg (35.0-45.0) 12/21/17 10:18 ABG pO2 85.0 mmHg (80.0-100.0) 12/21/17 10:18 ABG HCO3 20.7 mmol/L (22-26) L 12/21/17 10:18 ABG O2 Saturation 96.0 % (90-100) 12/21/17 10:18 ABG Base Excess -3.8 mmol/L (-2.0-2.0) L 12/21/17 10:18 Say Test Pos 12/21/17 10:18 A-a Gradient 21.0 mmHg 12/21/17 10:18 FiO2 21 12/21/17 10:18 Blood Gas Comments Pt [email or web address] 12/21/17 10:18 Sodium 142 mmol/L (136-145) 12/22/17 05:28 Corrected Sodium TNP 12/22/17 05:28 Potassium 3.3 mmol/L (3.5-5.1) L 12/22/17 05:28 Chloride 106 mmol/L (98-107) 12/22/17 05:28 Carbon Dioxide 23.1 mmol/L (21-32) 12/22/17 05:28 BUN 6 mg/dL (7-18) L 12/22/17 05:28 Creatinine 1.22 mg/dL (0.70-1.30) 12/22/17 05:28 Est GFR (MDRD) Af Amer > 60 (>60) 12/22/17 05:28 Est GFR (MDRD) Non-Af > 60 (>60) 12/22/17 05:28 Glucose 59 mg/dL (65-99) L 12/22/17 05:28 POC Glucose (mg/dL) 59 mg/dL (65-99) L 12/22/17 09:14 Calcium 8.7 mg/dL (8.5-10.1) 12/22/17 05:28 Corrected Calcium 9.7 mg/dL (8.5-10.1) 12/22/17 05:28 Magnesium 1.8 mg/dL (1.7-2.9) 12/20/17 04:20 Total Bilirubin 0.70 mg/dL (0.2-1.0) 12/22/17 05:28 AST 69 Units/L (15-37) H 12/22/17 05:28 ALT 23 Units/L (12-78) 12/22/17 05:28 Alkaline Phosphatase 44 Units/L (46-116) L 12/22/17 05:28 Lactate Dehydrogenase 1254 Units/L (85-227) H 12/22/17 05:28 Total Protein 5.0 g/dL (6.4-8.2) L 12/22/17 05:28 Albumin 2.7 g/dL (3.4-5.0) L 12/22/17 05:28 Globulin 2.3 g/dL (2.5-4.5) L 12/22/17 05:28 Albumin/Globulin Ratio 1.2 Ratio (1.1-2.1) 12/22/17 05:28 Carcinoembryonic Ag 1.8 ng/mL (0.0-3.0) 12/22/17 14:56 Specimen Type Catherized urine 12/21/17 17:13 Urine Color Yellow (YELLOW) 12/21/17 17:13 Urine Appearance Clear (CLEAR) 12/21/17 17:13 Urine pH 6.0 (5.0 - 8.0) 12/21/17 17:13 Ur Specific [place] 1.010 (1.000-1.030) 12/21/17 17:13 Urine Protein 1+ (NEGATIVE) 12/21/17 17:13 Urine Glucose (UA) Negative (NEGATIVE) 12/21/17 17:13 Urine Ketones 1+ (NEGATIVE) 12/21/17 17:13 Urine Occult Blood 2+ (NEGATIVE) 12/21/17 17:13 Urine Nitrite Negative (NEGATIVE) 12/21/17 17:13 Urine Bilirubin Negative (NEGATIVE) 12/21/17 17:13 Urine Urobilinogen Normal (NORMAL) 12/21/17 17:13 Ur Leukocyte Esterase Negative (NEGATIVE) 12/21/17 17:13 Urine RBC 5-10 /HPF (NONE SEEN) 12/21/17 17:13 Urine WBC None seen /HPF (NONE SEEN) 12/21/17 17:13 Ur Squamous Epith Cells Rare /HPF (NEGATIVE) 12/21/17 17:13 Calcium Oxalate Crystal Moderate /HPF (NEGATIVE) 12/17/17 15:35 Amorphous Sediment 1+ /HPF (NEGATIVE) 12/21/17 17:13 Urine Bacteria Negative /HPF (NEGATIVE) 12/21/17 17:13 Hyaline Casts Few /LPF (NEGATIVE) 12/21/17 17:13 Urine Sperm Moderate /HPF (NEGATIVE) 12/17/17 15:35 Ur Culture Indicated? Yes/culture set up 12/21/17 17:13 Stool Description 5g,pastey,darkbrown 12/21/17 18:33 Stl Occult Blood (IFOB) Positive (NEGATIVE) A 12/21/17 18:33 Stool for White Cells Positive (NEGATIVE) A 12/17/17 15:35 Stl C. diff Tox B Gene Negative (NEGATIVE) 12/17/17 15:35 Stl C. diff [id number] Negative (NEGATIVE) 12/17/17 15:35 Chromogranin A 1120 ng/mL (0-95) H 12/22/17 05:28 Cryptosporid parvum Ag Negative (NEGATIVE) 12/17/17 15:35 Giardia lamblia Ag Negative (NEGATIVE) 12/17/17 15:35
== END 2017-12-22 17:20 | disposition short-term general hospital (02) | DRG 556 ==
LOC: MED/SURG 13:22
PROVIDERS: ADMIT Internal Medicine; ATTEND Internal Medicine
DX: W18.39XA Other fall on same level, initial encounter; R19.5 Other fecal abnormalities; R10.84 Generalized abdominal pain; G47.33 Obstructive sleep apnea (adult) (pediatric); K21.9 Gastro-esophageal reflux disease without esophagitis; E11.65 Type 2 diabetes mellitus with hyperglycemia; I51.7 Cardiomegaly; R53.1 Weakness; R26.89 Other abnormalities of gait and mobility; I12.9 Hypertensive chronic kidney disease with stage 1 through stage 4 chronic kidney disease, or unspecified chronic kidney disease; R19.7 Diarrhea, unspecified; R06.02 Shortness of breath; M25.461 Effusion, right knee; T45.515A Adverse effect of anticoagulants, initial encounter; Z96.651 Presence of right artificial knee joint; Z79.01 Long term (current) use of anticoagulants; M25.561 Pain in right knee; N17.8 Other acute kidney failure; I25.10 Atherosclerotic heart disease of native coronary artery without angina pectoris
CPT/HCPCS: 36415; 36600; 71010; 71020; 71045; 71046; 71250; 74000; 74018; 74176; 74177; 80048; 80053; 81001; 82270; 82378; 82803; 83615; 83630; 83735; 84132; 85025; 85378; 85610; 85730; 86316; 87045; 87086; 87328; 87329; 87427; 87449; 87493; 87899; 93306; 93971; 94640; 94760; 97110; 97112; 97162; 97166; 97530; 97535; 99231; 99238; A4216; A4217; A4222; C9113; P9047; J0713; J1940; J2405; J3430; J3475; J3490; J7030; J7042; J7050; J7620